=== PATIENT | female | born 1960 | race Caucasian/White ===

== ENCOUNTER → 2018-06-09 | Emergency (ER) | payer SELFPAY ==
[~2018-06-09] MED LIST: PIPERACILLIN/TAZOB 3.375 GM 3.375 GM in DEXTROSE 5%-WATER - 50 ML IVPB ONE; PIPERACILLIN/TAZOBACTAM 3.375 GM VIAL IVPB ONE; SODIUM CHLORIDE 1,000 ML IV ONE; VANCOMYCIN 1 GM PREMIX - 1 GM/200 ML BAG IVPB ONE; VANCOMYCIN 1,000 MG VIAL (RESTRICTED TO ID ONLY) ONE; morphine CARPU-JECT 4 MG/1 ML DISP.SYRIN IVPUSH ONE; morphine SULFATE 4 MG/ML VIAL ONE
--- NOTE | 2018-06-09 19:41 | PDOC ---
History of Present Illness - General History Source: Patient, Family Exam Limitations: No Limitations - History of Present Illness Initial Comments: 06/09/18 20:43 The patient is a 58 year old female presenting with her daughter, who presents to the ED complaining of bilateral lower extremity ulcers for the past 10-15 years that has worsened in pain severity as of late. Her daughter reports that the patient just arrived from [facility] on 04/27/2018 and she was not aware of the severity of the patient's condition. The patient refused to show her legs to her family until recently. She reports that the patient was taking Naproxen for pain and recently ran out of her medication. The patient notes that the patient's pain is exacerbated when she walks or when she tries to remove the bandages. The daughter notes that the patient has been feeling warmth from her lower extremities, to the point of putting ice on the areas to alleviate the warm sensation. She denies any fever or any other type of symptoms. The patient does not currently have a PCP or family resource specialist and would like to be referred. The patient denies chest pain, shortness of breath, headache and dizziness. Denies fever, chills, nausea, vomiting, diarrhea or constipation. Denies dysuria , frequency, urgency and hematuria. PAST MEDICAL HISTORY: Bilateral lower extremity ulcers PAST SURGICAL HISTORY: no significant history FAMILY HISTORY: no pertinent history SOCIAL HISTORY: Pt lives with family and is employed. MEDICATIONS: reviewed ALLERGIES: As per nursing notes General: Well-nourished well-developed individual, no acute distress HEENT: Throat: Normal, tonsils normal, no erythema or exudate Neck: Supple, no meningeal signs, no lymphadenopathy Eyes::Pupils equal reactive and round, extraocular motion intact Chest: Nontender to palpation Cardiac: S1-S2 normal, regular rate and rhythm, no murmurs rubs or gallops Respiratory: Lungs clear to auscultation bilateral Abdomen: Soft, nondistended, normal bowel sounds, nontender to palpation diffusely Extremities: (+) Left lower extremity large ulcer extedning acros the dorsum of the foot to mid calf, becomes circumferential at area of ankle, foul odor, purulent discharge, ulcer is stage 3. (+) Right lower extremity large stage 3 ulcer medial extending from the lateral poriton of foot to mid calf, ulcer is not circumferential. Purulent discharge and fould odor. Skin: No rashes Neuro: Alert and oriented x3, nonfocal exam, grossly intact, normal gait Psych: Normal mood and affect <Ahsan Ladd - Last Filed: 06/09/18 20:43> - General History Source: Patient Exam Limitations: No Limitations - History of Present Illness Initial Comments: 06/10/18 00:40 A portion of this note was documented by scribe services under my direction. I have reviewed the details of the note, within reason, and agree with the documentation with the following case summary and management plan written by me. Patient treated in the ED. Nursing notes are reviewed and incorporated into the medical decision-making. Vital signs reviewed. Assessment and plan: This is a 58-year-old female brought in by her daughter for evaluation of bilateral leg ulcers. Patient recently came from [facility] and has had chronic leg ulcers times several years. However over the last couple of days since arrival in the patient has had increased pain some fevers and increase in purulent discharge from her leg ulcers. On my evaluation patient had extensive stage II to stage III leg ulcers bilateral Patient's white count was normal she did have a low-grade temp with a left shift. She was started on antibiotics vancomycin and Zosyn given first doses in the ED Patient was transferred to [place] as she will require extensive debridement of the ulcers, hyperbaric therapy, infectious disease consult, probable skin grafting eventually. Patient accepted to [place] by Dr. Carmichael and will be sent to the adult ED <María Phan I - Last Filed: 06/10/18 00:42> - General Chief Complaint: Pain, Acute Stated Complaint: LEG ULCERS Time Seen by Provider: 06/09/18 19:37 Past History <Ahsan Ladd - Last Filed: 06/09/18 20:43> - Past Medical History Anemia: Yes COPD: No Other medical history: LEG ULCERS X 15 YEARS - Suicide/Smoking/Psychosocial Hx Smoking History: Never smoked Have you smoked in the past 12 months: No Information on smoking cessation initiated: No Hx Alcohol Use: No Drug/Substance Use Hx: No <María Phan I - Last Filed: 06/10/18 00:42> - Past Medical History Allergies/Adverse Reactions: Allergies Allergy/AdvReac Type Severity Reaction Status Date / Time No Known Allergies Allergy Verified 06/09/18 19:29 Home Medications: Ambulatory Orders Unobtainable 06/09/18 *Physical Exam - Vital Signs Last Vital Signs Temp Pulse Resp BP Pulse Ox 99 F 93 H 18 130/73 100 06/09/18 19:31 06/09/18 19:31 06/09/18 19:31 06/09/18 19:31 06/09/18 19:31 <Ahsan Ladd - Last Filed: 06/09/18 20:43> - Vital Signs Last Vital Signs Temp Pulse Resp BP Pulse Ox 99 F 93 H 18 130/73 100 06/09/18 19:31 06/09/18 19:31 06/09/18 19:31 06/09/18 19:31 06/09/18 19:31 <María Phan I - Last Filed: 06/10/18 00:42> Moderate Sedation - Procedure Monitoring Vital Signs: Procedure Monitoring Vital Signs Temperature 99 F 06/09/18 19:31 Pulse Rate 93 H 06/09/18 19:31 Respiratory Rate 18 06/09/18 19:31 Blood Pressure 130/73 06/09/18 19:31 O2 Sat by Pulse Oximetry (%) 100 06/09/18 19:31 <Ahsan Ladd - Last Filed: 06/09/18 20:43> - Procedure Monitoring Vital Signs: Procedure Monitoring Vital Signs Temperature 99 F 06/09/18 19:31 Pulse Rate 93 H 06/09/18 19:31 Respiratory Rate 18 06/09/18 19:31 Blood Pressure 130/73 06/09/18 19:31 O2 Sat by Pulse Oximetry (%) 100 06/09/18 19:31 <María Phan I - Last Filed: 06/10/18 00:42> ED Treatment Course - LABORATORY CBC & Chemistry Diagram: 06/09/18 20:00 06/09/18 20:00 - ADDITIONAL ORDERS Additional order review: Laboratory Results 06/09/18 20:00 Sodium 139 Potassium 3.6 Chloride 112 H Carbon Dioxide 15 L Anion Gap 12 BUN 33 H Creatinine 2.2 H Creat Clearance w eGFR 22.93 Random Glucose 167 H Calcium 7.6 L Total Bilirubin 0.4 AST 27 ALT 39 Alkaline Phosphatase 126 H Total Protein 6.9 Albumin 2.3 L 06/09/18 20:00 RBC 3.88 MCV 69.2 L MCHC 30.5 L RDW 18.5 H MPV 7.2 L Neutrophils % No Result Required. Lymphocytes % No Result Required. - Medications Given in the ED: ED Medications Discontinued Medications Generic Name Dose Route Start Last Admin Trade Name Frederick PRN Reason Stop Dose Admin Morphine Sulfate 4 mg 06/09/18 19:49 06/09/18 20:13 Morphine Injection - IVPUSH 06/09/18 19:50 4 mg ONCE ONE Administration <Ahsan Ladd - Last Filed: 06/09/18 20:43> - LABORATORY CBC & Chemistry Diagram: 06/09/18 20:00 06/09/18 20:00 <María Phan I - Last Filed: 06/10/18 00:42> *DC/Admit/Observation/Transfer - Attestations Scribe Attestion: 06/09/18 20:43 Documentation prepared by Ahsan Ladd, acting as medical writer for María Phan MD <Ahsan Ladd - Last Filed: 06/09/18 20:43> <María Phan I - Last Filed: 06/10/18 00:42> Diagnosis at time of Disposition: Bilateral leg ulcer Qualifiers: Non-pressure ulcer stage: with fat layer exposed Qualified Code(s): L97.912 - Non-pressure chronic ulcer of unspecified part of right lower leg with fat layer exposed - Discharge Dispostion Disposition: TRANSFER ACUTE CARE/OTHER HOSP Condition at time of disposition: Stable
[2018-06-09 19:47] VITALS: BMI 28.3
[2018-06-09 20:13] LABS: HEMATOCRIT 26.9 % (32.4-45.2); RDW 18.5 % (11.6-15.6); WHITE BLOOD COUNT 7.3 K/mm3 (4.0-10.8)
[2018-06-09 20:17] LABS: HEMOGLOBIN 8.2 GM/dl (10.7-15.3); MCH 21.1 pg (25.7-33.7); MCHC 30.5 g/dl (32.0-36.0); MEAN CELL VOLUME 69.2 fl (80-96); MEAN PLT VOLUME 7.2 fl (7.5-11.1); PLATELET COUNT 691 K/MM3 (134-434); RBC 3.88 M/mm3 (3.60-5.2)
[2018-06-09 20:33] LABS: ALBUMIN 2.3 g/dl (3.4-5.0); ALK PHOS 126 U/L (45-117); ANION GAP 12 MMOL/L (8-16); BILIRUBIN,TOTAL 0.4 mg/dl (0.2-1); BLOOD UREA NITROGEN 33 mg/dl (7-18); CALCIUM 7.6 mg/dl (8.5-10); CHLORIDE 112 mmol/L (98-107); CO2 15 mmol/L (21-32); CREATININE 2.2 mg/dl (0.55-1.3); GLUCOSE,RANDOM 167 mg/dl (74-106); POTASSIUM 3.6 mmol/L (3.5-5.1); SGOT/AST 27 U/L (15-37); SGPT/ALT 39 U/L (13-61); SODIUM 139 mmol/L (136-145); TOT PROT 6.9 g/dl (6.4-8.2)
[2018-06-09 21:09] LABS: ANISOCYTOSIS 1+; OVALOCYTE 1+; PLATELET ESTIMATE INCREASED
[2018-06-09 23:14] VITALS: BP 105/59; PULSE 92; TEMP 98.4
--- NOTE | 2018-06-10 15:45 | EKG ---
Test Reason : Blood Pressure : / mmHG Vent. Rate : 077 BPM Atrial Rate : 077 BPM P-R Int : 144 ms QRS Dur : 084 ms QT Int : 398 ms P-R-T Axes : 060 005 031 degrees QTc Int : 450 ms NORMAL SINUS RHYTHM NORMAL ECG NO PREVIOUS ECGS AVAILABLE Confirmed by CARLOZ KESSLER MD ([id number]) on 06/10/2018 3:45:15 PM Referred By: MD ADAMS Confirmed By:CARLOZ KESSLER MD
== END | disposition short-term general hospital (02) ==
LOC: FER 19:26
PROC: 3E03329 Introduction of Other Anti-infective into Peripheral Vein, Percutaneous Approach (ICD-10-PCS; principal; 2018-06-09)
PROC: 3E0337Z Introduction of Electrolytic and Water Balance Substance into Peripheral Vein, Percutaneous Approach (ICD-10-PCS; 2018-06-09)
PROC: 3E033NZ Introduction of Analgesics, Hypnotics, Sedatives into Peripheral Vein, Percutaneous Approach (ICD-10-PCS; 2018-06-09)
PROC: 3E03329 Introduction of Other Anti-infective into Peripheral Vein, Percutaneous Approach (ICD-10-PCS; 2018-06-09)
DX: L97.912 Non-pressure chronic ulcer of unspecified part of right lower leg with fat layer exposed (principal)
CPT/HCPCS: 36415; 71045-TC-FY; 80053; 85025; 87040; 87070; 87186; 87205; 93005; 99281-25; J7030

== ENCOUNTER 2018-10-08 14:10 | Inpatient (IN) | payer OTHER ==
--- NOTE | 2018-10-08 14:40 | PDOC ---
Rapid Medical Evaluation Chief Complaint: Wound Time Seen by Provider: 10/08/18 14:37 Medical Evaluation: Allergies Allergy/AdvReac Type Severity Reaction Status Date / Time No Known Allergies Allergy Verified 06/09/18 19:29 10/08/18 14:38 Patient complaints of: sent to admission, was at wound care clinic and has cellulitis, admit to [facility] for consult, PCP non affil Patient on brief exam: ble wrapped in gauze, vss Patient ordered for: labs, u/s , iv, Patient to proceed to the ED Discharge Disposition - Diagnosis Bilateral leg ulcer - Discharge Dispostion Disposition: HOME Condition at time of disposition: Good - Referrals - Patient Instructions - Post Discharge Activity
[2018-10-08] MEDS ORDERED: PIPERACILLIN/TAZOB 3.375 GM 3.375 GM in DEXTROSE 5%-WATER - 50 ML IVPB ONE (16:03)
[2018-10-08] MEDS ORDERED: VANCOMYCIN 1,000 MG in DEXTROSE 5%-WATER - 250 ML IVPB ONE (16:03)
[2018-10-08] MEDS ORDERED: morphine CARPU-JECT 4 MG/1 ML DISP.SYRIN IVPUSH ONE (16:04)
--- NOTE | 2018-10-08 16:12 | PDOC ---
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 here from wound care clinic. pt started care here with Dr Izquierdo 3 weeks ago, has been undergoing hyperbarics x 2 weeks. today /co more sever pain in the lower ext. chills. no f/ no n/v no trauma. was seen by dr Cevallos infectious disease. concerns wounds draining purulence, feet warm sent for iv antiobiotics 10/08/18 16:18 meds gabapentin 100 mg QHS lisinopril 2.5 mg atorvastatin 40 mg clobetesol cream folic acid Vit B12 Fe Past History - Past Medical History Allergies/Adverse Reactions: Allergies Allergy/AdvReac Type Severity Reaction Status Date / Time No Known Allergies Allergy Verified 06/09/18 19:29 Home Medications: Ambulatory Orders Aspirin 81 mg PO DAILY 09/17/18 Atorvastatin Ca [Lipitor] 40 mg PO DAILY 09/17/18 Ferrous Sulfate 325 mg PO BID 09/17/18 Humalog 09/17/18 Lisinopril [Zestril] 2.5 mg PO DAILY 09/17/18 Anemia: Yes Cancer: No Cardiac Disorders: No CVA: No COPD: No CHF: No Dementia: No Diabetes: No GI Disorders: Yes Disorders: No HTN: No Hypercholesterolemia: No Liver Disease: No Seizures: No Thyroid Disease: No Other medical history: chronic wounds BLe, hyperbaric tx and wound clinic - Suicide/Smoking/Psychosocial Hx Smoking History: Never smoked Have you smoked in the past 12 months: No Hx Alcohol Use: No Drug/Substance Use Hx: No Review of Systems - Review of Systems Constitutional: No: Diaphoresis, Fever HEENTM: No: Eye Pain, Mouth Swelling Respiratory: No: Cough Cardiac (ROS): No: Chest Pain, Edema : No: Burning, Dysuria, Discharge Musculoskeletal: Yes: Other (leg pain) Integumentary: Yes: Other (chronic leg wounds draining) All Other Systems: Reviewed and Negative *Physical Exam - Vital Signs Last Vital Signs Temp Pulse Resp BP Pulse Ox 97.7 F 74 20 127/70 10/08/18 14:36 10/08/18 14:36 10/08/18 14:36 10/08/18 14:36 - Physical Exam Comments: 10/08/18 16:09 awake alert nad lungs ctab abd soft nt nd ext wwp left anterior alvarenga large skin defect old translant site, yellowish discharge on dressing. foot warm, erythema. right foot with medial heel wound draining yellowish material . nuero alert oriented x 3. Medical Decision Making - Medical Decision Making 10/08/18 16:12 58 yo F htn hld pvd leg wounds here with wound infection. plan labs cultures lactate vanco zosyn, will d/w dr hanson for admission. consult DR Cevallos infectious disease. 10/08/18 16:20 d/w dr hanson. pt admitted. morphine given for pain, vanco / zosyn. *DC/Admit/Observation/Transfer Diagnosis at time of Disposition: Bilateral leg ulcer - Discharge Dispostion Decision to Admit order: Yes - Referrals Referrals: Suresh Huff MD [Primary Care Provider] - - Patient Instructions - Post Discharge Activity
[2018-10-08] MEDS ORDERED: morphine SULFATE 4 MG/ML VIAL ONE (16:34)
[2018-10-08] MEDS ORDERED: PIPERACILLIN/TAZOB 3.375 GM 3.375 GM/50 ML BAG IVPB ONE (16:35)
[2018-10-08] MEDS ORDERED: VANCOMYCIN 1 GRAM (PRE-DOCKED) 1,000 MG/250 ML BAG IVPB ONE (16:35)
[2018-10-08 17:10] LABS: BASO % 0.5 % (0-2.0); EOS % 0.2 % (0-4.5); HEMATOCRIT 34.1 % (32.4-45.2); HEMOGLOBIN 10.7 GM/dL (10.7-15.3); MCH 22.8 pg (25.7-33.7); MCHC 31.3 g/dl (32.0-36.0); MEAN CELL VOLUME 72.9 fl (80-96); MEAN PLT VOLUME 9.4 fl (7.5-11.1); MONO % 5.1 % (3.8-10.2); NEUT % 82.2 % (42.8-82.8); RBC 4.67 M/mm3 (3.60-5.2); RDW 24.5 % (11.6-15.6); WHITE BLOOD COUNT 9.9 K/mm3 (4.0-10.0)
[2018-10-08 17:23] LABS: EPI CELLS 2.8 /HPF (0-5/HPF); HYALINE CASTS 0 /lpf (0-8); PH,URINE 7.5 (5.0-8.0); URINE APPEARANCE CLEAR; URINE BACTERIA 36.7 /hpf (NEGATIVE); URINE BILIRUBIN NEGATIVE (NEGATIVE); URINE COLOR YELLOW; URINE GLUCOSE (UA) NEGATIVE (NEGATIVE); URINE KETONE NEGATIVE (NEGATIVE); URINE LEUK ESTERASE TRACE (NEGATIVE); URINE NITRITE NEGATIVE (NEGATIVE); URINE PROTEIN NEGATIVE (NEGATIVE); URINE RBC 3 /hpf (0-4); URINE UROBILINOGEN 0.2 mg/dL (0.2-1.0); URINE WBC 9 /hpf (0-5)
[2018-10-08 17:34] LABS: ALBUMIN 3.6 g/dl (3.4-5.0); BILIRUBIN,TOTAL 0.2 mg/dL (0.2-1); CALCIUM 9.1 mg/dL (8.5-10.1); CREATININE 1.6 mg/dL (0.55-1.3); POTASSIUM 5.3 mmol/L (3.5-5.1); TOT PROT 7.2 g/dl (6.4-8.2)
[2018-10-08 17:47] LABS: INR 0.99 (0.83-1.09); PROTHROMBIN TIME (PATIENT) 11.7 SEC (9.7-13.0)
[2018-10-08 18:13] LABS: PLATELET COUNT 353 K/MM3 (134-434)
--- NOTE | 2018-10-08 19:22 | HP ---
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 here from wound care clinic. pt started care here with Dr Izquierdo 3 weeks ago, has been undergoing hyperbarics x 2 weeks. today /co more sever pain in the lower ext. chills. no f/ no n/v no trauma. was seen by dr Cevallos infectious disease. concerns wounds draining purulence, feet warm sent for iv antiobiotics - Past Medical History Cardiovascular: Yes: HTN, Hyperlipdemia - Smoking History Smoking history: Never smoked Have you smoked in the past 12 months: No - Alcohol/Substance Use Hx Alcohol Use: No Home Medications - Allergies Allergies/Adverse Reactions: Allergies Allergy/AdvReac Type Severity Reaction Status Date / Time No Known Allergies Allergy Verified 10/09/18 11:33 - Home Medications Home Medications: Ambulatory Orders Atorvastatin Ca [Lipitor] 40 mg PO DAILY 09/17/18 Lisinopril [Zestril] 2.5 mg PO DAILY 09/17/18 Aspirin 81 mg PO DAILY 10/09/18 Ferrous Sulfate [Iron] 325 mg PO DAILY 10/09/18 Physical Examination Vital Signs: Vital Signs Temperature 97.7 F 10/08/18 14:36 Pulse Rate 74 10/08/18 14:36 Respiratory Rate 20 10/08/18 14:36 Blood Pressure 127/70 10/08/18 14:36 O2 Sat by Pulse Oximetry (%) 99 10/08/18 17:00 Constitutional: Yes: No Distress HENT: Yes: Atraumatic Neck: Yes: Supple Cardiovascular: Yes: Regular Rate and Rhythm Respiratory: Yes: CTA Bilaterally Gastrointestinal: Yes: Normal Bowel Sounds Extremities: Yes: Other (B/L JELANI WOUNDS) Edema: No Neurological: Yes: Alert, Oriented Labs: CBC, BMP 10/08/18 16:43 10/08/18 16:43 Problem List - Problems (1) Bilateral leg ulcer Assessment/Plan: ON ABX ID CONSULT WOUND CARE Code(s): L97.919 - NON-PRS CHRONIC ULC UNSP PRT OF R LOW LEG W UNSP SEVERITY; L97.929 - NON-PRS CHRONIC ULC UNSP PRT OF L LOW LEG W UNSP SEVERITY (2) Venous insufficiency Code(s): I87.2 - VENOUS INSUFFICIENCY (CHRONIC) (PERIPHERAL) (3) DVT prophylaxis Code(s): Z29.9 - ENCOUNTER FOR PROPHYLACTIC MEASURES, UNSPECIFIED Assessment/Plan Laboratory Tests 10/08/18 10/08/18 10/08/18 16:43 16:43 16:43 WBC 9.9 RBC 4.67 Hgb 10.7 Hct 34.1 MCV 72.9 L MCH 22.8 L MCHC 31.3 L RDW 24.5 H Plt Count 353 MPV 9.4 Absolute Neuts (auto) 8.2 H Neutrophils % 82.2 Lymphocytes % 12.0 Monocytes % 5.1 Eosinophils % 0.2 Basophils % 0.5 Nucleated RBC % 0 PT with INR 11.70 INR 0.99 Sodium 139 Potassium 5.3 H Chloride 108 H Carbon Dioxide 25 Anion Gap 6 L BUN 43.0 H Creatinine 1.6 H Est GFR (CKD-EPI)AfAm 40.74 Est GFR (CKD-EPI)NonAf 35.15 Random Glucose 130 H Lactic Acid Calcium 9.1 Total Bilirubin 0.2 AST 12 L ALT 39 Alkaline Phosphatase 100 Total Protein 7.2 Albumin 3.6 Urine Color Urine Appearance Urine pH Ur Specific [place] Urine Protein Urine Glucose (UA) Urine Ketones Urine Blood Urine Nitrite Urine Bilirubin Urine Urobilinogen Ur Leukocyte Esterase Urine WBC (Auto) Urine RBC (Auto) Urine Casts (Auto) U Epithel Cells (Auto) Urine Bacteria (Auto) 10/08/18 10/08/18 16:43 17:00 WBC RBC Hgb Hct MCV MCH MCHC RDW Plt Count MPV Absolute Neuts (auto) Neutrophils % Lymphocytes % Monocytes % Eosinophils % Basophils % Nucleated RBC % PT with INR INR Sodium Potassium Chloride Carbon Dioxide Anion Gap BUN Creatinine Est GFR (CKD-EPI)AfAm Est GFR (CKD-EPI)NonAf Random Glucose Lactic Acid 1.0 Calcium Total Bilirubin AST ALT Alkaline Phosphatase Total Protein Albumin Urine Color Yellow Urine Appearance Clear Urine pH 7.5 Ur Specific [place] 1.016 Urine Protein Negative Urine Glucose (UA) Negative Urine Ketones Negative Urine Blood Negative Urine Nitrite Negative Urine Bilirubin Negative Urine Urobilinogen 0.2 Ur Leukocyte Esterase Trace Urine WBC (Auto) 9 Urine RBC (Auto) 3 Urine Casts (Auto) 0 U Epithel Cells (Auto) 2.8 Urine Bacteria (Auto) 36.7 Active Medications Generic Name Dose Route Start Last Admin Trade Name Freq PRN Reason Stop Dose Admin Acetaminophen 650 mg 10/08/18 19:23 10/09/18 02:21 Tylenol - PO 650 mg Q6H PRN Administration FEVER Aspirin 81 mg 10/09/18 10:00 10/09/18 10:14 Asa - PO 81 mg DAILY ENZO Administration Atorvastatin Calcium 40 mg 10/08/18 22:00 10/08/18 22:25 Lipitor - PO 40 mg HS ENZO Administration Ferrous Sulfate 325 mg 10/08/18 22:00 10/09/18 10:15 Feosol - PO 325 mg BID ENZO Administration Heparin Sodium (Porcine) 5,000 unit 10/08/18 22:00 10/09/18 10:15 Heparin - SQ 5,000 unit BID ENZO Administration Meropenem 1 gm/ Dextrose 100 mls @ 200 mls/hr 10/09/18 14:00 IVPB Q12H [facility] Lisinopril 2.5 mg 10/09/18 10:00 10/09/18 10:15 Prinivil PO Not Given DAILY [facility] Oxycodone HCl 10 mg 10/08/18 19:23 10/09/18 02:22 Roxicodone - PO 10 mg Q6H PRN Administration PAIN LEVEL 4 - 6
[2018-10-08 20:31] VITALS: BMI 24.1
[2018-10-08] MEDS: oxyCODONE HCL 5 MG TABLET PO PRN (20:38)
[2018-10-08] MEDS: HEPARIN NA (PORCINE) 5,000 UNITS/ML 1ML VIAL SQ SCH (22:25)
[2018-10-08] MEDS: FERROUS SO4 325 MG TABLET (FP) PO SCH (22:25)
[2018-10-08] MEDS: ATORVASTATIN CA 40 MG TABLET (FP) PO SCH (22:25)
[2018-10-09] MEDS: ACETAMINOPHEN 325 MG TABLET (FP) PO PRN (02:21)
[2018-10-09] MEDS: oxyCODONE HCL 5 MG TABLET PO PRN (02:22)
[2018-10-09 08:45] LABS: ALBUMIN 2.8 g/dl (3.4-5.0); BILIRUBIN,TOTAL 0.3 mg/dL (0.2-1); BLOOD UREA NITROGEN 34.8 mg/dL (7-18); CALCIUM 8.8 mg/dL (8.5-10.1); CREATININE 1.8 mg/dL (0.55-1.3); POTASSIUM 4.5 mmol/L (3.5-5.1); TOT PROT 5.8 g/dl (6.4-8.2)
[2018-10-09 08:51] LABS: BASO % 0.2 % (0-2.0); EOS % 0.5 % (0-4.5); HEMATOCRIT 30.6 % (32.4-45.2); HEMOGLOBIN 9.5 GM/dL (10.7-15.3); LYMPH % 22.4 % (8-40); MCH 22.9 pg (25.7-33.7); MCHC 31.1 g/dl (32.0-36.0); MEAN CELL VOLUME 73.6 fl (80-96); MONO % 8.5 % (3.8-10.2); NEUT % 68.4 % (42.8-82.8); PLATELET COUNT 282 K/MM3 (134-434); RBC 4.15 M/mm3 (3.60-5.2); WHITE BLOOD COUNT 8.4 K/mm3 (4.0-10.0)
[2018-10-09] MEDS ORDERED: PT OWN MED DRAWER 7, Y5N ONE (10:09)
[2018-10-09] MEDS: ASPIRIN 81 MG CHEWABLE TABLETS PO SCH (10:14)
[2018-10-09] MEDS: FERROUS SO4 325 MG TABLET (FP) PO SCH ×2 (10:15→21:02)
[2018-10-09] MEDS: HEPARIN NA (PORCINE) 5,000 UNITS/ML 1ML VIAL SQ SCH ×2 (10:15→21:02)
[2018-10-09] MEDS: LISINOPRIL 5 MG TABLET (FP) PO SCH (10:15)
--- NOTE | 2018-10-09 13:11 | CON.ID ---
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 here from wound care clinic. pt started care here with Dr Izquierdo 3 weeks ago, has been undergoing hyperbarics x 2 weeks. today /co more sever pain in the lower ext. chills. no f/ no n/v no trauma. patient wounds are warm with drainage noted cx were taken of the wounds which are showing multi drug resistant bacteria patient admitted for iv abx and further management. patient has had this wound for 7 years approx - History Source History Provided By: Patient, Family Member Limitations to Obtaining History: Language Barrier - Past Medical History Cardio/Vascular: Yes: HTN, Hyperlipdemia ...: No - Alcohol/Substance Use Hx Alcohol Use: No - Smoking History Smoking history: Never smoked Have you smoked in the past 12 months: No Home Medications - Allergies Allergies/Adverse Reactions: Allergies Allergy/AdvReac Type Severity Reaction Status Date / Time No Known Allergies Allergy Verified 10/09/18 11:33 - Home Medications Home Medications: Ambulatory Orders RX: Atorvastatin Ca [Lipitor] 40 mg PO DAILY 09/17/18 RX: Lisinopril [Zestril] 2.5 mg PO DAILY 09/17/18 RX: Aspirin 81 mg PO DAILY 10/09/18 RX: Ferrous Sulfate [Iron] 325 mg PO DAILY 10/09/18 Review of Systems - Review of Systems Constitutional: reports: No Symptoms Eyes: reports: No Symptoms HENT: reports: No Symptoms Neck: reports: No Symptoms Cardiovascular: reports: No Symptoms Respiratory: reports: No Symptoms Gastrointestinal: reports: No Symptoms Genitourinary: reports: No Symptoms Musculoskeletal: reports: Other Integumentary: reports: Wound, Other Neurological: reports: No Symptoms Endocrine: reports: No Symptoms Hematology/Lymphatic: reports: No Symptoms Psychiatric: reports: No Symptoms Physical Exam Vital Signs: Vital Signs Temperature 98.5 F 10/09/18 08:05 Pulse Rate 71 10/09/18 08:05 Respiratory Rate 20 10/09/18 08:05 Blood Pressure 100/60 10/09/18 08:05 O2 Sat by Pulse Oximetry (%) 99 10/08/18 17:00 Constitutional: Yes: Well Nourished, Calm, Mild Distress Eyes: Yes: Conjunctiva Clear HENT: Yes: WNL, Atraumatic Neck: Yes: Supple, Trachea Midline Cardiovascular: Yes: Regular Rate and Rhythm Respiratory: Yes: Regular, CTA Bilaterally Gastrointestinal: Yes: Normal Bowel Sounds, Soft Musculoskeletal: Yes: WNL Extremities: Yes: Other Integumentary: Yes: Other Wound/Incision: Yes: Dressing Removed, Other (b/l leg wounds extensive on the left leg up to the dermis /partial thickness skin loss) Neurological: Yes: Alert, Oriented Psychiatric: Yes: Alert, Oriented Labs: CBC, BMP 10/09/18 07:27 10/09/18 07:32 Imaging - Results Chest X-ray: Report Reviewed, Image Reviewed X-ray: Report Reviewed, Image Reviewed Assessment/Plan Problem List - Problems (1) Bilateral leg ulcer Code(s): L97.919 - NON-PRS CHRONIC ULC UNSP PRT OF R LOW LEG W UNSP SEVERITY; L97.929 - NON-PRS CHRONIC ULC UNSP PRT OF L LOW LEG W UNSP SEVERITY (2) Venous insufficiency Code(s): I87.2 - VENOUS INSUFFICIENCY (CHRONIC) (PERIPHERAL) 3 wound infction' plan will start patient on abx needs plastics to see the patient wound care rest as per the team
--- NOTE | 2018-10-09 13:59 | PN ---
Progress Note, Physician - Current Medication List Current Medications: Active Medications Acetaminophen (Tylenol -) 650 mg PO Q6H PRN PRN Reason: FEVER Last Admin: 10/09/18 02:21 Dose: 650 mg Aspirin (Asa -) 81 mg PO DAILY [facility] Last Admin: 10/09/18 10:14 Dose: 81 mg Atorvastatin Calcium (Lipitor -) 40 mg PO HS [facility] Last Admin: 10/08/18 22:25 Dose: 40 mg Ferrous Sulfate (Feosol -) 325 mg PO BID [facility] Last Admin: 10/09/18 10:15 Dose: 325 mg Heparin Sodium (Porcine) (Heparin -) 5,000 unit SQ BID [facility] Last Admin: 10/09/18 10:15 Dose: 5,000 unit Meropenem 1 gm/ Dextrose 100 mls @ 200 mls/hr IVPB Q12H [facility] Lisinopril (Prinivil) 2.5 mg PO DAILY [facility] Last Admin: 10/09/18 10:15 Dose: Not Given Oxycodone HCl (Roxicodone -) 10 mg PO Q6H PRN PRN Reason: PAIN LEVEL 4 - 6 Last Admin: 10/09/18 02:22 Dose: 10 mg - Objective Vital Signs: Vital Signs Temperature 98.5 F 10/09/18 08:05 Pulse Rate 71 10/09/18 08:05 Respiratory Rate 20 10/09/18 08:05 Blood Pressure 100/60 10/09/18 08:05 O2 Sat by Pulse Oximetry (%) 99 10/08/18 17:00 Constitutional: Yes: No Distress HENT: Yes: Atraumatic Neck: Yes: Supple Cardiovascular: Yes: Regular Rate and Rhythm Respiratory: Yes: CTA Bilaterally Gastrointestinal: Yes: Normal Bowel Sounds Edema: No Neurological: Yes: Alert, Oriented Labs: CBC, BMP 10/09/18 07:27 10/09/18 07:32 INR, PTT INR 0.99 (0.83-1.09) 10/08/18 16:43 Problem List - Problems (1) Bilateral leg ulcer Assessment/Plan: ON ABX SURGERY CONSULT Code(s): L97.919 - NON-PRS CHRONIC ULC UNSP PRT OF R LOW LEG W UNSP SEVERITY; L97.929 - NON-PRS CHRONIC ULC UNSP PRT OF L LOW LEG W UNSP SEVERITY (2) Venous insufficiency Code(s): I87.2 - VENOUS INSUFFICIENCY (CHRONIC) (PERIPHERAL) (3) DVT prophylaxis Code(s): Z29.9 - ENCOUNTER FOR PROPHYLACTIC MEASURES, UNSPECIFIED
[2018-10-09] MEDS ORDERED: DEXTROSE 5%-WATER 100 ML IVPB ONE (14:07)
[2018-10-09] MEDS ORDERED: MEROPENEM 1 GM VIAL (RESTRICTED TO ID) IVPB ONE (14:07)
[2018-10-09] MEDS: MEROPENEM 1 GM in DEXTROSE 5%-WATER 100 ML IVPB SCH (14:17)
--- NOTE | 2018-10-09 15:38 | CONSULT ---
Consult Consult Specialty:: Vascular Surgery Reason for Consultation:: Bl lower ext wounds. - venous. Had wound cultures done in the clinic and pt needs IV antibiotics as per ID. Sent to ER for admission. - History Source Limitations to Obtaining History: No Limitations - Past Medical History Cardio/Vascular: Yes: HTN, Hyperlipdemia ...: No - Alcohol/Substance Use Hx Alcohol Use: No - Smoking History Smoking history: Never smoked Have you smoked in the past 12 months: No Home Medications - Allergies Allergies/Adverse Reactions: Allergies Allergy/AdvReac Type Severity Reaction Status Date / Time No Known Allergies Allergy Verified 10/09/18 11:33 - Home Medications Home Medications: Ambulatory Orders Atorvastatin Ca [Lipitor] 40 mg PO DAILY 09/17/18 Lisinopril [Zestril] 2.5 mg PO DAILY 09/17/18 Aspirin 81 mg PO DAILY 10/09/18 Ferrous Sulfate [Iron] 325 mg PO DAILY 10/09/18 Review of Systems - Review of Systems Constitutional: reports: No Symptoms Eyes: reports: No Symptoms HENT: reports: No Symptoms Neck: reports: No Symptoms Cardiovascular: reports: No Symptoms Respiratory: reports: No Symptoms Gastrointestinal: reports: No Symptoms Genitourinary: reports: No Symptoms Musculoskeletal: reports: No Symptoms Integumentary: reports: No Symptoms Neurological: reports: No Symptoms Endocrine: reports: No Symptoms Hematology/Lymphatic: reports: No Symptoms Psychiatric: reports: No Symptoms Physical Exam Vital Signs: Vital Signs Temperature 98.5 F 10/09/18 08:05 Pulse Rate 71 10/09/18 08:05 Respiratory Rate 20 10/09/18 08:05 Blood Pressure 100/60 10/09/18 08:05 O2 Sat by Pulse Oximetry (%) 99 10/08/18 17:00 Constitutional: Yes: Well Nourished, No Distress, Calm Eyes: Yes: WNL, Conjunctiva Clear, EOM Intact HENT: Yes: WNL, Atraumatic, Normocephalic Neck: Yes: WNL, Supple, Trachea Midline Cardiovascular: Yes: WNL, Regular Rate and Rhythm Respiratory: Yes: WNL, Regular, CTA Bilaterally Gastrointestinal: Yes: WNL, Normal Bowel Sounds ...Rectal Exam: Yes: WNL Renal/: Yes: WNL Breast(s): Yes: WNL Musculoskeletal: Yes: WNL Extremities: Yes: WNL, Other (open venous stasis ulcers for 7 years) Edema: No Integumentary: Yes: WNL Neurological: Yes: WNL, Alert, Oriented ...Motor Strength: WNL Psychiatric: Yes: WNL Labs: CBC, BMP 10/09/18 07:27 10/09/18 07:32 Problem List - Problems (1) Venous stasis ulcers of both lower extremities Assessment/Plan: Bl lower ext venous stasis ulcers for over 7 years. REcent cultures in [facility] showed infection that can not be treated with oral antibiotics. Pt referred to hospital for IV antibiotics as per ID. Parry to bl lower ext daily. LINDA for compression Renzo Izquierdo DO Code(s): I83.019 - VARICOSE VEINS OF RIGHT LOWER EXTREMITY W ULCER OF UNSP SITE ; I83.029 - VARICOSE VEINS OF LEFT LOWER EXTREMITY W ULCER OF UNSP SITE; L97.919 - NON-PRS CHRONIC ULC UNSP PRT OF R LOW LEG W UNSP SEVERITY; L97.929 - NON-PRS CHRONIC ULC UNSP PRT OF L LOW LEG W UNSP SEVERITY
[2018-10-09] MEDS: ATORVASTATIN CA 40 MG TABLET (FP) PO SCH (21:02)
[2018-10-10] MEDS ORDERED: DEXTROSE 5%-WATER 100 ML IVPB ONE ×2 (01:54→13:31)
[2018-10-10] MEDS ORDERED: MEROPENEM 1 GM VIAL (RESTRICTED TO ID) IVPB ONE ×2 (01:54→13:31)
[2018-10-10] MEDS: MEROPENEM 1 GM in DEXTROSE 5%-WATER 100 ML IVPB SCH ×2 (02:22→13:32)
[2018-10-10] MEDS ORDERED: SILVER SULFADIAZINE 1% TOP CREAM 50 GM JAR TP SCH (10:00)
[2018-10-10] MEDS ORDERED: PT OWN MED DRAWER 7, Y5N ONE (10:01)
[2018-10-10] MEDS: ASPIRIN 81 MG CHEWABLE TABLETS PO SCH (10:03)
[2018-10-10] MEDS: FERROUS SO4 325 MG TABLET (FP) PO SCH ×2 (10:04→22:15)
[2018-10-10] MEDS: LISINOPRIL 5 MG TABLET (FP) PO SCH (10:04)
[2018-10-10] MEDS: HEPARIN NA (PORCINE) 5,000 UNITS/ML 1ML VIAL SQ SCH ×2 (10:05→22:14)
[2018-10-10] MEDS: oxyCODONE HCL 5 MG TABLET PO PRN ×2 (10:06→16:33)
[2018-10-10] MEDS: ACETAMINOPHEN 325 MG TABLET (FP) PO PRN ×2 (10:07→16:34)
--- NOTE | 2018-10-10 11:57 | PN ---
Progress Note, Physician History of Present Illness: patient stable no new issues - Current Medication List Current Medications: Active Medications Acetaminophen (Tylenol -) 650 mg PO Q6H PRN PRN Reason: FEVER Last Admin: 10/10/18 10:07 Dose: 650 mg Aspirin (Asa -) 81 mg PO DAILY [facility] Last Admin: 10/10/18 10:03 Dose: 81 mg Atorvastatin Calcium (Lipitor -) 40 mg PO HS [facility] Last Admin: 10/09/18 21:02 Dose: 40 mg Ferrous Sulfate (Feosol -) 325 mg PO BID [facility] Last Admin: 10/10/18 10:04 Dose: 325 mg Heparin Sodium (Porcine) (Heparin -) 5,000 unit SQ BID [facility] Last Admin: 10/10/18 10:05 Dose: 5,000 unit Meropenem 1 gm/ Dextrose 100 mls @ 200 mls/hr IVPB Q12H [facility] Last Admin: 10/10/18 02:22 Dose: 200 mls/hr Lisinopril (Prinivil) 2.5 mg PO DAILY [facility] Last Admin: 10/10/18 10:04 Dose: 2.5 mg Oxycodone HCl (Roxicodone -) 10 mg PO Q6H PRN PRN Reason: PAIN LEVEL 4 - 6 Last Admin: 10/10/18 10:06 Dose: 10 mg Silver Sulfadiazine (Silvadene -) 1 applic TP DAILY [facility] - Objective Vital Signs: Vital Signs Temperature 98.5 F 10/10/18 06:00 Pulse Rate 62 10/10/18 06:00 Respiratory Rate 20 10/10/18 06:00 Blood Pressure 115/64 10/10/18 06:00 O2 Sat by Pulse Oximetry (%) 98 10/09/18 21:00 Constitutional: Yes: No Distress, Calm Cardiovascular: Yes: Regular Rate and Rhythm Respiratory: Yes: Regular, CTA Bilaterally Musculoskeletal: Yes: WNL Extremities: Yes: Other Neurological: Yes: Alert, Oriented Psychiatric: Yes: Alert, Oriented Labs: CBC, BMP 10/09/18 07:27 10/09/18 07:32 INR, PTT INR 0.99 (0.83-1.09) 10/08/18 16:43 Assessment/Plan Problem List - Problems (1) Bilateral leg ulcer Code(s): L97.919 - NON-PRS CHRONIC ULC UNSP PRT OF R LOW LEG W UNSP SEVERITY; L97.929 - NON-PRS CHRONIC ULC UNSP PRT OF L LOW LEG W UNSP SEVERITY (2) Venous insufficiency Code(s): I87.2 - VENOUS INSUFFICIENCY (CHRONIC) (PERIPHERAL) 3 wound infction' plan continue abx wound care rest as per the team
--- NOTE | 2018-10-10 12:39 | PN ---
Progress Note, Physician - Current Medication List Current Medications: Active Medications Acetaminophen (Tylenol -) 650 mg PO Q6H PRN PRN Reason: FEVER Last Admin: 10/10/18 10:07 Dose: 650 mg Aspirin (Asa -) 81 mg PO DAILY [facility] Last Admin: 10/10/18 10:03 Dose: 81 mg Atorvastatin Calcium (Lipitor -) 40 mg PO HS [facility] Last Admin: 10/09/18 21:02 Dose: 40 mg Ferrous Sulfate (Feosol -) 325 mg PO BID [facility] Last Admin: 10/10/18 10:04 Dose: 325 mg Heparin Sodium (Porcine) (Heparin -) 5,000 unit SQ BID [facility] Last Admin: 10/10/18 10:05 Dose: 5,000 unit Meropenem 1 gm/ Dextrose 100 mls @ 200 mls/hr IVPB Q12H [facility] Last Admin: 10/10/18 02:22 Dose: 200 mls/hr Lisinopril (Prinivil) 2.5 mg PO DAILY [facility] Last Admin: 10/10/18 10:04 Dose: 2.5 mg Oxycodone HCl (Roxicodone -) 10 mg PO Q6H PRN PRN Reason: PAIN LEVEL 4 - 6 Last Admin: 10/10/18 10:06 Dose: 10 mg Silver Sulfadiazine (Silvadene -) 1 applic TP DAILY [facility] - Objective Vital Signs: Vital Signs Temperature 98.2 F 10/10/18 09:20 Pulse Rate 82 10/10/18 09:20 Respiratory Rate 20 10/10/18 09:20 Blood Pressure 132/84 10/10/18 09:20 O2 Sat by Pulse Oximetry (%) 98 10/09/18 21:00 Constitutional: Yes: No Distress HENT: Yes: Atraumatic Neck: Yes: Supple Cardiovascular: Yes: Regular Rate and Rhythm Respiratory: Yes: CTA Bilaterally Gastrointestinal: Yes: Normal Bowel Sounds Extremities: Yes: Other (B/L JELANI CELLULITIS) Neurological: Yes: Alert, Oriented Labs: CBC, BMP 10/09/18 07:27 10/09/18 07:32 INR, PTT INR 0.99 (0.83-1.09) 10/08/18 16:43 Problem List - Problems (1) Bilateral leg ulcer Assessment/Plan: ON ABX SURGERY CONSULT Code(s): L97.919 - NON-PRS CHRONIC ULC UNSP PRT OF R LOW LEG W UNSP SEVERITY; L97.929 - NON-PRS CHRONIC ULC UNSP PRT OF L LOW LEG W UNSP SEVERITY (2) Venous insufficiency Code(s): I87.2 - VENOUS INSUFFICIENCY (CHRONIC) (PERIPHERAL) (3) DVT prophylaxis Code(s): Z29.9 - ENCOUNTER FOR PROPHYLACTIC MEASURES, UNSPECIFIED
--- NOTE | 2018-10-10 17:16 | EKG ---
Test Reason : Blood Pressure : / mmHG Vent. Rate : 067 BPM Atrial Rate : 067 BPM P-R Int : 136 ms QRS Dur : 070 ms QT Int : 376 ms P-R-T Axes : 026 023 062 degrees QTc Int : 397 ms POOR DATA QUALITY, INTERPRETATION MAY BE ADVERSELY AFFECTED NORMAL SINUS RHYTHM NORMAL ECG WHEN COMPARED WITH ECG OF 09-JUN-2018 21:22, QT HAS SHORTENED Confirmed by MD LUL, DILIP ([id number]) on 10/10/2018 5:15:30 PM Referred By: Confirmed By:DILIP MCCARTY MD
[2018-10-10] MEDS: ATORVASTATIN CA 40 MG TABLET (FP) PO SCH (22:15)
[2018-10-11] MEDS ORDERED: MEROPENEM 1 GM VIAL (RESTRICTED TO ID) IVPB ONE ×2 (00:03→14:00)
[2018-10-11] MEDS ORDERED: DEXTROSE 5%-WATER 100 ML IVPB ONE ×2 (00:03→14:00)
[2018-10-11] MEDS: MEROPENEM 1 GM in DEXTROSE 5%-WATER 100 ML IVPB SCH ×2 (01:05→14:02)
--- NOTE | 2018-10-11 08:47 | PN ---
Progress Note, Physician History of Present Illness: patient stable no new issues - Current Medication List Current Medications: Active Medications Acetaminophen (Tylenol -) 650 mg PO Q6H PRN PRN Reason: FEVER Last Admin: 10/10/18 16:34 Dose: 650 mg Aspirin (Asa -) 81 mg PO DAILY [facility] Last Admin: 10/10/18 10:03 Dose: 81 mg Atorvastatin Calcium (Lipitor -) 40 mg PO HS [facility] Last Admin: 10/10/18 22:15 Dose: 40 mg Ferrous Sulfate (Feosol -) 325 mg PO BID [facility] Last Admin: 10/10/18 22:15 Dose: 325 mg Heparin Sodium (Porcine) (Heparin -) 5,000 unit SQ BID [facility] Last Admin: 10/10/18 22:14 Dose: 5,000 unit Meropenem 1 gm/ Dextrose 100 mls @ 200 mls/hr IVPB Q12H [facility] Last Admin: 10/11/18 01:05 Dose: 200 mls/hr Lisinopril (Prinivil) 2.5 mg PO DAILY [facility] Last Admin: 10/10/18 10:04 Dose: 2.5 mg Oxycodone HCl (Roxicodone -) 10 mg PO Q6H PRN PRN Reason: PAIN LEVEL 4 - 6 Last Admin: 10/10/18 16:33 Dose: 10 mg Silver Sulfadiazine (Silvadene -) 1 applic TP DAILY [facility] - Objective Vital Signs: Vital Signs Temperature 98.6 F 10/11/18 06:32 Pulse Rate 72 10/11/18 06:32 Respiratory Rate 20 10/11/18 06:32 Blood Pressure 105/69 10/11/18 06:32 O2 Sat by Pulse Oximetry (%) 99 10/10/18 21:00 Constitutional: Yes: No Distress, Calm Cardiovascular: Yes: Regular Rate and Rhythm Respiratory: Yes: Regular, CTA Bilaterally Gastrointestinal: Yes: Normal Bowel Sounds, Soft Musculoskeletal: Yes: WNL Extremities: Yes: Other Neurological: Yes: Alert, Oriented Psychiatric: Yes: Alert, Oriented Labs: CBC, BMP 10/09/18 07:27 10/09/18 07:32 INR, PTT INR 0.99 (0.83-1.09) 10/08/18 16:43 Assessment/Plan Problem List - Problems (1) Bilateral leg ulcer Code(s): L97.919 - NON-PRS CHRONIC ULC UNSP PRT OF R LOW LEG W UNSP SEVERITY; L97.929 - NON-PRS CHRONIC ULC UNSP PRT OF L LOW LEG W UNSP SEVERITY (2) Venous insufficiency Code(s): I87.2 - VENOUS INSUFFICIENCY (CHRONIC) (PERIPHERAL) 3 wound infction' plan abx needs plastics to see the patient wound care rest as per the team
[2018-10-11] MEDS: oxyCODONE HCL 5 MG TABLET PO PRN ×3 (10:28→23:53)
[2018-10-11] MEDS: FERROUS SO4 325 MG TABLET (FP) PO SCH ×2 (10:28→22:29)
[2018-10-11] MEDS: ACETAMINOPHEN 325 MG TABLET (FP) PO PRN ×2 (10:28→17:31)
[2018-10-11] MEDS: ASPIRIN 81 MG CHEWABLE TABLETS PO SCH (10:28)
[2018-10-11] MEDS: HEPARIN NA (PORCINE) 5,000 UNITS/ML 1ML VIAL SQ SCH ×2 (10:29→22:29)
[2018-10-11] MEDS: LISINOPRIL 5 MG TABLET (FP) PO SCH (10:29)
[2018-10-11] MEDS: SILVER SULFADIAZINE 1% TOP CREAM 400 GM JAR TP SCH (11:15)
--- NOTE | 2018-10-11 17:56 | CONSULT ---
Consult Consult Specialty:: Plastic surgery Referred by:: Dr Johnston Reason for Consultation:: Open wounds Both legsx 7 years - History of Present Illness Chief Complaint: WOunds started 7 years ago as a small blister - History Source History Provided By: Family Member (Daughter Morena) - Past Medical History Cardio/Vascular: Yes: HTN, Hyperlipdemia ...: No - Alcohol/Substance Use Hx Alcohol Use: No - Smoking History Smoking history: Never smoked Have you smoked in the past 12 months: No Home Medications - Allergies Allergies/Adverse Reactions: Allergies Allergy/AdvReac Type Severity Reaction Status Date / Time No Known Allergies Allergy Verified 10/09/18 11:33 - Home Medications Home Medications: Ambulatory Orders Atorvastatin Ca [Lipitor] 40 mg PO DAILY 09/17/18 Lisinopril [Zestril] 2.5 mg PO DAILY 09/17/18 Aspirin 81 mg PO DAILY 10/09/18 Ferrous Sulfate [Iron] 325 mg PO DAILY 10/09/18 Physical Exam Vital Signs: Vital Signs Temperature 98.4 F 10/11/18 15:07 Pulse Rate 82 10/11/18 15:07 Respiratory Rate 18 10/11/18 15:07 Blood Pressure 98/53 L 10/11/18 15:07 O2 Sat by Pulse Oximetry (%) 98 10/11/18 09:00 Labs: CBC, BMP 10/09/18 07:27 10/09/18 07:32 Assessment/Plan Awake alert, not in Acute distress Focused Examination Both Legs large Open wound, covered with Fibrinous tissue, mild odor, Severe Pigmented changes and scars noted Left lower leg ulcers are Circumferential , DP palpable DP Laboratory Tests 10/08/18 10/08/18 10/09/18 16:43 16:43 07:27 WBC 9.9 8.4 Hgb 9.5 L Hct 30.6 L MCV 73.6 L MCH 22.9 L MCHC 31.1 L RDW 25.0 H Plt Count 282 D Absolute Neuts (auto) 5.7 Neutrophils % 68.4 Lymphocytes % 22.4 D Monocytes % 8.5 Eosinophils % 0.5 D Basophils % 0.2 Nucleated RBC % 0 Potassium 5.3 H Chloride 108 H Anion Gap 6 L BUN 43.0 H Creatinine 1.6 H Random Glucose 130 H Calcium Total Bilirubin AST Alkaline Phosphatase 100 Total Protein 7.2 Albumin 3.6 10/09/18 07:32 WBC Hgb Hct MCV MCH MCHC RDW Plt Count Absolute Neuts (auto) Neutrophils % Lymphocytes % Monocytes % Eosinophils % Basophils % Nucleated RBC % Potassium 4.5 Chloride 109 H Anion Gap 5 L BUN 34.8 H Creatinine 1.8 H Random Glucose 124 H Calcium 8.8 Total Bilirubin 0.3 AST 10 L Alkaline Phosphatase 84 Total Protein 5.8 L Albumin 2.8 L Right lower ulcers : covered with heavy Fibrious tissue Smaller than Right size Discussed /Medical Center admission: No skin grafting performed (as per daughter ) Dr Izquierdo N, As per Dr Izquierdo : Vascular / Perforating vessels needs to be addressed before skin grafting Recommend : Both legs Wounds treated with Silvidine cream daily. ( patient declining compression due to pain) Compression using Pump BID at home till Perforators are treated by Dr Izquierdo
--- NOTE | 2018-10-11 18:38 | PN ---
Progress Note, Physician - Current Medication List Current Medications: Active Medications Acetaminophen (Tylenol -) 650 mg PO Q6H PRN PRN Reason: FEVER Last Admin: 10/11/18 17:31 Dose: 650 mg Aspirin (Asa -) 81 mg PO DAILY [facility] Last Admin: 10/11/18 10:28 Dose: 81 mg Atorvastatin Calcium (Lipitor -) 40 mg PO HS [facility] Last Admin: 10/10/18 22:15 Dose: 40 mg Ferrous Sulfate (Feosol -) 325 mg PO BID [facility] Last Admin: 10/11/18 10:28 Dose: 325 mg Heparin Sodium (Porcine) (Heparin -) 5,000 unit SQ BID [facility] Last Admin: 10/11/18 10:29 Dose: 5,000 unit Meropenem 1 gm/ Dextrose 100 mls @ 200 mls/hr IVPB Q12H [facility] Last Admin: 10/11/18 14:02 Dose: 200 mls/hr Lisinopril (Prinivil) 2.5 mg PO DAILY [facility] Last Admin: 10/11/18 10:29 Dose: 2.5 mg Oxycodone HCl (Roxicodone -) 10 mg PO Q6H PRN PRN Reason: PAIN LEVEL 4 - 6 Last Admin: 10/11/18 17:30 Dose: 10 mg Silver Sulfadiazine (Silvadene -) 1 applic TP DAILY [facility] Last Admin: 10/11/18 11:15 Dose: 1 applic - Objective Vital Signs: Vital Signs Temperature 98.4 F 10/11/18 15:07 Pulse Rate 82 10/11/18 15:07 Respiratory Rate 18 10/11/18 15:07 Blood Pressure 98/53 L 10/11/18 15:07 O2 Sat by Pulse Oximetry (%) 98 10/11/18 09:00 Constitutional: Yes: No Distress HENT: Yes: Atraumatic Neck: Yes: Supple Cardiovascular: Yes: Regular Rate and Rhythm Respiratory: Yes: CTA Bilaterally Gastrointestinal: Yes: Normal Bowel Sounds Extremities: Yes: Other (b/l jhonny cellulitis) Neurological: Yes: Alert, Oriented Labs: CBC, BMP 10/09/18 07:27 10/09/18 07:32 INR, PTT INR 0.99 (0.83-1.09) 10/08/18 16:43 Problem List - Problems (1) Bilateral leg ulcer Assessment/Plan: ON ABX ID CONSULT WOUND CARE Code(s): L97.919 - NON-PRS CHRONIC ULC UNSP PRT OF R LOW LEG W UNSP SEVERITY; L97.929 - NON-PRS CHRONIC ULC UNSP PRT OF L LOW LEG W UNSP SEVERITY (2) Venous insufficiency Code(s): I87.2 - VENOUS INSUFFICIENCY (CHRONIC) (PERIPHERAL)
[2018-10-11] MEDS: ATORVASTATIN CA 40 MG TABLET (FP) PO SCH (22:29)
[2018-10-12] MEDS ORDERED: DEXTROSE 5%-WATER 100 ML IVPB ONE ×2 (02:28→15:09)
[2018-10-12] MEDS ORDERED: MEROPENEM 1 GM VIAL (RESTRICTED TO ID) IVPB ONE ×2 (02:28→15:09)
[2018-10-12] MEDS: MEROPENEM 1 GM in DEXTROSE 5%-WATER 100 ML IVPB SCH ×2 (02:30→15:22)
[2018-10-12] MEDS: oxyCODONE HCL 5 MG TABLET PO PRN ×2 (08:55→21:43)
[2018-10-12] MEDS: ACETAMINOPHEN 325 MG TABLET (FP) PO PRN ×2 (08:57→21:48)
[2018-10-12] MEDS: LISINOPRIL 5 MG TABLET (FP) PO SCH (10:42)
[2018-10-12] MEDS: HEPARIN NA (PORCINE) 5,000 UNITS/ML 1ML VIAL SQ SCH ×2 (10:42→21:43)
[2018-10-12] MEDS: ASPIRIN 81 MG CHEWABLE TABLETS PO SCH (10:42)
[2018-10-12] MEDS: FERROUS SO4 325 MG TABLET (FP) PO SCH ×2 (10:42→21:48)
[2018-10-12] MEDS: SILVER SULFADIAZINE 1% TOP CREAM 400 GM JAR TP SCH (10:43)
--- NOTE | 2018-10-12 14:07 | PN ---
Progress Note, Physician History of Present Illness: stable no new issues - Current Medication List Current Medications: Active Medications Acetaminophen (Tylenol -) 650 mg PO Q6H PRN PRN Reason: FEVER Last Admin: 10/12/18 08:57 Dose: 650 mg Aspirin (Asa -) 81 mg PO DAILY [facility] Last Admin: 10/12/18 10:42 Dose: 81 mg Atorvastatin Calcium (Lipitor -) 40 mg PO HS [facility] Last Admin: 10/11/18 22:29 Dose: 40 mg Ferrous Sulfate (Feosol -) 325 mg PO BID [facility] Last Admin: 10/12/18 10:42 Dose: 325 mg Heparin Sodium (Porcine) (Heparin -) 5,000 unit SQ BID [facility] Last Admin: 10/12/18 10:42 Dose: 5,000 unit Meropenem 1 gm/ Dextrose 100 mls @ 200 mls/hr IVPB Q12H [facility] Last Admin: 10/12/18 02:30 Dose: 200 mls/hr Lisinopril (Prinivil) 2.5 mg PO DAILY [facility] Last Admin: 10/12/18 10:42 Dose: 2.5 mg Oxycodone HCl (Roxicodone -) 10 mg PO Q6H PRN PRN Reason: PAIN LEVEL 4 - 6 Last Admin: 10/12/18 08:55 Dose: 10 mg Silver Sulfadiazine (Silvadene -) 1 applic TP DAILY [facility] Last Admin: 10/12/18 10:43 Dose: 1 applic - Objective Vital Signs: Vital Signs Temperature 98.3 F 10/12/18 10:00 Pulse Rate 118 H 10/12/18 10:00 Respiratory Rate 18 10/12/18 10:00 Blood Pressure 104/67 10/12/18 10:00 O2 Sat by Pulse Oximetry (%) 98 10/11/18 09:00 Constitutional: Yes: No Distress, Calm Cardiovascular: Yes: Regular Rate and Rhythm Respiratory: Yes: Regular, CTA Bilaterally Gastrointestinal: Yes: Normal Bowel Sounds, Soft Musculoskeletal: Yes: WNL Extremities: Yes: WNL Wound/Incision: Yes: Dressing Dry and Intact Neurological: Yes: Alert, Oriented Psychiatric: Yes: Alert, Oriented Labs: CBC, BMP 10/09/18 07:27 10/09/18 07:32 INR, PTT INR 0.99 (0.83-1.09) 10/08/18 16:43 Assessment/Plan Problem List - Problems (1) Bilateral leg ulcer Code(s): L97.919 - NON-PRS CHRONIC ULC UNSP PRT OF R LOW LEG W UNSP SEVERITY; L97.929 - NON-PRS CHRONIC ULC UNSP PRT OF L LOW LEG W UNSP SEVERITY (2) Venous insufficiency Code(s): I87.2 - VENOUS INSUFFICIENCY (CHRONIC) (PERIPHERAL) 3 wound infction' plan abx plastics note noted wound care rest as per the team
--- NOTE | 2018-10-12 18:09 | PN ---
Progress Note, Physician - Current Medication List Current Medications: Active Medications Acetaminophen (Tylenol -) 650 mg PO Q6H PRN PRN Reason: FEVER Last Admin: 10/12/18 08:57 Dose: 650 mg Aspirin (Asa -) 81 mg PO DAILY [facility] Last Admin: 10/12/18 10:42 Dose: 81 mg Atorvastatin Calcium (Lipitor -) 40 mg PO HS [facility] Last Admin: 10/11/18 22:29 Dose: 40 mg Ferrous Sulfate (Feosol -) 325 mg PO BID [facility] Last Admin: 10/12/18 10:42 Dose: 325 mg Heparin Sodium (Porcine) (Heparin -) 5,000 unit SQ BID [facility] Last Admin: 10/12/18 10:42 Dose: 5,000 unit Meropenem 1 gm/ Dextrose 100 mls @ 200 mls/hr IVPB Q12H [facility] Last Admin: 10/12/18 15:22 Dose: 200 mls/hr Lisinopril (Prinivil) 2.5 mg PO DAILY [facility] Last Admin: 10/12/18 10:42 Dose: 2.5 mg Oxycodone HCl (Roxicodone -) 10 mg PO Q6H PRN PRN Reason: PAIN LEVEL 4 - 6 Last Admin: 10/12/18 08:55 Dose: 10 mg Silver Sulfadiazine (Silvadene -) 1 applic TP DAILY [facility] Last Admin: 10/12/18 10:43 Dose: 1 applic - Objective Vital Signs: Vital Signs Temperature 98.2 F 10/12/18 17:03 Pulse Rate 86 10/12/18 17:03 Respiratory Rate 18 10/12/18 17:03 Blood Pressure 90/55 L 10/12/18 17:03 O2 Sat by Pulse Oximetry (%) 98 10/12/18 09:00 Constitutional: Yes: No Distress HENT: Yes: Atraumatic Neck: Yes: Supple Cardiovascular: Yes: Regular Rate and Rhythm Respiratory: Yes: CTA Bilaterally Gastrointestinal: Yes: Normal Bowel Sounds Extremities: Yes: Other (b/l jhonny cellulitis) Neurological: Yes: Alert, Oriented Labs: CBC, BMP 10/09/18 07:27 10/09/18 07:32 INR, PTT INR 0.99 (0.83-1.09) 10/08/18 16:43 Problem List - Problems (1) Bilateral leg ulcer Assessment/Plan: ON ABX ID CONSULT WOUND CARE Code(s): L97.919 - NON-PRS CHRONIC ULC UNSP PRT OF R LOW LEG W UNSP SEVERITY; L97.929 - NON-PRS CHRONIC ULC UNSP PRT OF L LOW LEG W UNSP SEVERITY (2) Venous insufficiency Code(s): I87.2 - VENOUS INSUFFICIENCY (CHRONIC) (PERIPHERAL)
[2018-10-12] MEDS: ATORVASTATIN CA 40 MG TABLET (FP) PO SCH (21:48)
[2018-10-13] MEDS: MEROPENEM 1 GM in DEXTROSE 5%-WATER 100 ML IVPB SCH ×2 (02:50→13:48)
[2018-10-13] MEDS: ASPIRIN 81 MG CHEWABLE TABLETS PO SCH (10:34)
[2018-10-13] MEDS: oxyCODONE HCL 5 MG TABLET PO PRN (10:34)
[2018-10-13] MEDS: FERROUS SO4 325 MG TABLET (FP) PO SCH ×2 (10:36→21:34)
[2018-10-13] MEDS: HEPARIN NA (PORCINE) 5,000 UNITS/ML 1ML VIAL SQ SCH ×2 (10:36→21:34)
[2018-10-13] MEDS: LISINOPRIL 5 MG TABLET (FP) PO SCH (10:36)
[2018-10-13] MEDS: SILVER SULFADIAZINE 1% TOP CREAM 400 GM JAR TP SCH (10:37)
--- NOTE | 2018-10-13 12:07 | PN ---
Progress Note, Physician History of Present Illness: patient stable no new issues - Current Medication List Current Medications: Active Medications Acetaminophen (Tylenol -) 650 mg PO Q6H PRN PRN Reason: FEVER Last Admin: 10/12/18 21:48 Dose: 650 mg Aspirin (Asa -) 81 mg PO DAILY [facility] Last Admin: 10/13/18 10:34 Dose: 81 mg Atorvastatin Calcium (Lipitor -) 40 mg PO HS [facility] Last Admin: 10/12/18 21:48 Dose: 40 mg Ferrous Sulfate (Feosol -) 325 mg PO BID [facility] Last Admin: 10/13/18 10:36 Dose: 325 mg Heparin Sodium (Porcine) (Heparin -) 5,000 unit SQ BID [facility] Last Admin: 10/13/18 10:36 Dose: 5,000 unit Meropenem 1 gm/ Dextrose 100 mls @ 200 mls/hr IVPB Q12H [facility] Last Admin: 10/13/18 02:50 Dose: 200 mls/hr Lisinopril (Prinivil) 2.5 mg PO DAILY [facility] Last Admin: 10/13/18 10:36 Dose: 2.5 mg Oxycodone HCl (Roxicodone -) 10 mg PO Q6H PRN PRN Reason: PAIN LEVEL 4 - 6 Last Admin: 10/13/18 10:34 Dose: 10 mg Silver Sulfadiazine (Silvadene -) 1 applic TP DAILY [facility] Last Admin: 10/13/18 10:37 Dose: Not Given - Objective Vital Signs: Vital Signs Temperature 97.9 F 10/13/18 06:51 Pulse Rate 76 10/13/18 06:51 Respiratory Rate 20 10/13/18 06:51 Blood Pressure 94/56 L 10/13/18 06:51 O2 Sat by Pulse Oximetry (%) 98 10/12/18 09:00 Constitutional: Yes: No Distress, Calm Respiratory: Yes: Regular, CTA Bilaterally Gastrointestinal: Yes: Normal Bowel Sounds, Soft Musculoskeletal: Yes: WNL Extremities: Yes: WNL Wound/Incision: Yes: Dressing Dry and Intact Neurological: Yes: Alert, Oriented Labs: CBC, BMP 10/09/18 07:27 10/09/18 07:32 INR, PTT INR 0.99 (0.83-1.09) 10/08/18 16:43 Assessment/Plan Problem List - Problems (1) Bilateral leg ulcer Code(s): L97.919 - NON-PRS CHRONIC ULC UNSP PRT OF R LOW LEG W UNSP SEVERITY; L97.929 - NON-PRS CHRONIC ULC UNSP PRT OF L LOW LEG W UNSP SEVERITY (2) Venous insufficiency Code(s): I87.2 - VENOUS INSUFFICIENCY (CHRONIC) (PERIPHERAL) 3 wound infction' plan abx plastics note noted wound care rest as per the team
[2018-10-13] MEDS ORDERED: MEROPENEM 1 GM VIAL (RESTRICTED TO ID) IVPB ONE (13:46)
[2018-10-13] MEDS ORDERED: DEXTROSE 5%-WATER 100 ML IVPB ONE (13:46)
--- NOTE | 2018-10-13 18:55 | PN ---
Progress Note, Physician - Current Medication List Current Medications: Active Medications Acetaminophen (Tylenol -) 650 mg PO Q6H PRN PRN Reason: FEVER Last Admin: 10/12/18 21:48 Dose: 650 mg Aspirin (Asa -) 81 mg PO DAILY [facility] Last Admin: 10/13/18 10:34 Dose: 81 mg Atorvastatin Calcium (Lipitor -) 40 mg PO HS [facility] Last Admin: 10/12/18 21:48 Dose: 40 mg Ferrous Sulfate (Feosol -) 325 mg PO BID [facility] Last Admin: 10/13/18 10:36 Dose: 325 mg Heparin Sodium (Porcine) (Heparin -) 5,000 unit SQ BID [facility] Last Admin: 10/13/18 10:36 Dose: 5,000 unit Meropenem 1 gm/ Dextrose 100 mls @ 200 mls/hr IVPB Q12H [facility] Last Admin: 10/13/18 13:48 Dose: 200 mls/hr Lisinopril (Prinivil) 2.5 mg PO DAILY [facility] Last Admin: 10/13/18 10:36 Dose: 2.5 mg Oxycodone HCl (Roxicodone -) 10 mg PO Q6H PRN PRN Reason: PAIN LEVEL 4 - 6 Last Admin: 10/13/18 10:34 Dose: 10 mg - Objective Vital Signs: Vital Signs Temperature 98.5 F 10/13/18 17:21 Pulse Rate 78 10/13/18 17:21 Respiratory Rate 20 10/13/18 17:21 Blood Pressure 91/58 L 10/13/18 17:21 O2 Sat by Pulse Oximetry (%) 98 10/13/18 09:00 HENT: Yes: Atraumatic Neck: Yes: Supple Cardiovascular: Yes: Regular Rate and Rhythm Respiratory: Yes: CTA Bilaterally Gastrointestinal: Yes: Normal Bowel Sounds Extremities: Yes: Other (cellulitis lower extremities) Neurological: Yes: Alert, Oriented Labs: CBC, BMP 10/09/18 07:27 10/09/18 07:32 INR, PTT INR 0.99 (0.83-1.09) 10/08/18 16:43 Problem List - Problems (1) Bilateral leg ulcer Assessment/Plan: ON ABX ID CONSULT WOUND CARE Code(s): L97.919 - NON-PRS CHRONIC ULC UNSP PRT OF R LOW LEG W UNSP SEVERITY; L97.929 - NON-PRS CHRONIC ULC UNSP PRT OF L LOW LEG W UNSP SEVERITY (2) Venous insufficiency Code(s): I87.2 - VENOUS INSUFFICIENCY (CHRONIC) (PERIPHERAL)
[2018-10-13] MEDS: ATORVASTATIN CA 40 MG TABLET (FP) PO SCH (21:34)
[2018-10-14] MEDS ORDERED: MEROPENEM 1 GM VIAL (RESTRICTED TO ID) IVPB ONE ×2 (01:23→14:08)
[2018-10-14] MEDS ORDERED: DEXTROSE 5%-WATER 100 ML IVPB ONE ×2 (01:23→14:09)
[2018-10-14] MEDS: MEROPENEM 1 GM in DEXTROSE 5%-WATER 100 ML IVPB SCH ×2 (01:28→14:15)
[2018-10-14] MEDS: ASPIRIN 81 MG CHEWABLE TABLETS PO SCH (09:52)
[2018-10-14] MEDS: LISINOPRIL 5 MG TABLET (FP) PO SCH (09:52)
[2018-10-14] MEDS: FERROUS SO4 325 MG TABLET (FP) PO SCH ×2 (09:52→21:49)
[2018-10-14] MEDS: HEPARIN NA (PORCINE) 5,000 UNITS/ML 1ML VIAL SQ SCH ×2 (09:52→21:50)
--- NOTE | 2018-10-14 15:17 | PN ---
Progress Note, Physician - Current Medication List Current Medications: Active Medications Acetaminophen (Tylenol -) 650 mg PO Q6H PRN PRN Reason: FEVER Last Admin: 10/12/18 21:48 Dose: 650 mg Aspirin (Asa -) 81 mg PO DAILY [facility] Last Admin: 10/14/18 09:52 Dose: 81 mg Atorvastatin Calcium (Lipitor -) 40 mg PO HS [facility] Last Admin: 10/13/18 21:34 Dose: 40 mg Ferrous Sulfate (Feosol -) 325 mg PO BID [facility] Last Admin: 10/14/18 09:52 Dose: 325 mg Heparin Sodium (Porcine) (Heparin -) 5,000 unit SQ BID [facility] Last Admin: 10/14/18 09:52 Dose: 5,000 unit Meropenem 1 gm/ Dextrose 100 mls @ 200 mls/hr IVPB Q12H [facility] Last Admin: 10/14/18 14:15 Dose: 200 mls/hr Lisinopril (Prinivil) 2.5 mg PO DAILY [facility] Last Admin: 10/14/18 09:52 Dose: 2.5 mg Oxycodone HCl (Roxicodone -) 10 mg PO Q6H PRN PRN Reason: PAIN LEVEL 4 - 6 Last Admin: 10/13/18 10:34 Dose: 10 mg - Objective Vital Signs: Vital Signs Temperature 98.4 F 10/14/18 07:26 Pulse Rate 72 10/14/18 07:26 Respiratory Rate 20 10/14/18 07:26 Blood Pressure 98/65 10/14/18 07:26 O2 Sat by Pulse Oximetry (%) 98 10/13/18 21:00 Labs: CBC, BMP 10/09/18 07:27 10/09/18 07:32 INR, PTT INR 0.99 (0.83-1.09) 10/08/18 16:43
--- NOTE | 2018-10-14 17:59 | PN ---
Progress Note, Physician - Current Medication List Current Medications: Active Medications Acetaminophen (Tylenol -) 650 mg PO Q6H PRN PRN Reason: FEVER Last Admin: 10/12/18 21:48 Dose: 650 mg Aspirin (Asa -) 81 mg PO DAILY [facility] Last Admin: 10/14/18 09:52 Dose: 81 mg Atorvastatin Calcium (Lipitor -) 40 mg PO HS [facility] Last Admin: 10/13/18 21:34 Dose: 40 mg Ferrous Sulfate (Feosol -) 325 mg PO BID [facility] Last Admin: 10/14/18 09:52 Dose: 325 mg Heparin Sodium (Porcine) (Heparin -) 5,000 unit SQ BID [facility] Last Admin: 10/14/18 09:52 Dose: 5,000 unit Meropenem 1 gm/ Dextrose 100 mls @ 200 mls/hr IVPB Q12H [facility] Last Admin: 10/14/18 14:15 Dose: 200 mls/hr Lisinopril (Prinivil) 2.5 mg PO DAILY [facility] Last Admin: 10/14/18 09:52 Dose: 2.5 mg Oxycodone HCl (Roxicodone -) 10 mg PO Q6H PRN PRN Reason: PAIN LEVEL 4 - 6 Last Admin: 10/13/18 10:34 Dose: 10 mg - Objective Vital Signs: Vital Signs Temperature 99 F 10/14/18 09:00 Pulse Rate 87 10/14/18 09:00 Respiratory Rate 20 10/14/18 09:00 Blood Pressure 106/69 10/14/18 09:00 O2 Sat by Pulse Oximetry (%) 98 10/14/18 09:00 Constitutional: Yes: No Distress HENT: Yes: Atraumatic Neck: Yes: Supple Cardiovascular: Yes: Regular Rate and Rhythm Respiratory: Yes: CTA Bilaterally Gastrointestinal: Yes: Normal Bowel Sounds Extremities: Yes: Other (b/l jhonny) Edema: No Neurological: Yes: Alert, Oriented Labs: CBC, BMP 10/09/18 07:27 10/09/18 07:32 INR, PTT INR 0.99 (0.83-1.09) 10/08/18 16:43 Problem List - Problems (1) Bilateral leg ulcer Assessment/Plan: ON ABX ID CONSULT WOUND CARE Code(s): L97.919 - NON-PRS CHRONIC ULC UNSP PRT OF R LOW LEG W UNSP SEVERITY; L97.929 - NON-PRS CHRONIC ULC UNSP PRT OF L LOW LEG W UNSP SEVERITY (2) Venous insufficiency Code(s): I87.2 - VENOUS INSUFFICIENCY (CHRONIC) (PERIPHERAL)
[2018-10-14] MEDS: ATORVASTATIN CA 40 MG TABLET (FP) PO SCH (21:49)
[2018-10-15] MEDS ORDERED: DEXTROSE 5%-WATER 100 ML IVPB ONE ×2 (01:21→14:01)
[2018-10-15] MEDS ORDERED: MEROPENEM 1 GM VIAL (RESTRICTED TO ID) IVPB ONE ×2 (01:21→14:01)
[2018-10-15] MEDS: MEROPENEM 1 GM in DEXTROSE 5%-WATER 100 ML IVPB SCH ×2 (01:30→14:03)
[2018-10-15 07:38] LABS: BASO % 0.6 % (0-2.0); EOS % 0.6 % (0-4.5); HEMATOCRIT 32.1 % (32.4-45.2); HEMOGLOBIN 9.9 GM/dL (10.7-15.3); LYMPH % 41.8 % (8-40); MCH 22.5 pg (25.7-33.7); MCHC 30.7 g/dl (32.0-36.0); MEAN CELL VOLUME 73.4 fl (80-96); MEAN PLT VOLUME 9.1 fl (7.5-11.1); MONO % 10.1 % (3.8-10.2); NEUT % 46.9 % (42.8-82.8); PLATELET COUNT 301 K/MM3 (134-434); RBC 4.38 M/mm3 (3.60-5.2); WHITE BLOOD COUNT 4.9 K/mm3 (4.0-10.0)
[2018-10-15 08:07] LABS: ALBUMIN 2.8 g/dl (3.4-5.0); BILIRUBIN,TOTAL 0.3 mg/dL (0.2-1); BLOOD UREA NITROGEN 68.4 mg/dL (7-18); CREATININE 1.7 mg/dL (0.55-1.3); TOT PROT 6.3 g/dl (6.4-8.2)
[2018-10-15 10:38] LABS: ANISOCYTOSIS 2+; MACROCYTOSIS 0; PLATELET ESTIMATE NORMAL
[2018-10-15] MEDS: ASPIRIN 81 MG CHEWABLE TABLETS PO SCH (11:16)
[2018-10-15] MEDS: FERROUS SO4 325 MG TABLET (FP) PO SCH (11:16)
[2018-10-15] MEDS: LISINOPRIL 5 MG TABLET (FP) PO SCH (11:16)
[2018-10-15] MEDS: HEPARIN NA (PORCINE) 5,000 UNITS/ML 1ML VIAL SQ SCH (11:16)
--- NOTE | 2018-10-15 13:03 | PN ---
Progress Note, Physician History of Present Illness: patient doing well no new issues - Current Medication List Current Medications: Active Medications Acetaminophen (Tylenol -) 650 mg PO Q6H PRN PRN Reason: FEVER Last Admin: 10/12/18 21:48 Dose: 650 mg Aspirin (Asa -) 81 mg PO DAILY [facility] Last Admin: 10/15/18 11:16 Dose: 81 mg Atorvastatin Calcium (Lipitor -) 40 mg PO HS [facility] Last Admin: 10/14/18 21:49 Dose: 40 mg Ferrous Sulfate (Feosol -) 325 mg PO BID [facility] Last Admin: 10/15/18 11:16 Dose: 325 mg Heparin Sodium (Porcine) (Heparin -) 5,000 unit SQ BID [facility] Last Admin: 10/15/18 11:16 Dose: 5,000 unit Meropenem 1 gm/ Dextrose 100 mls @ 200 mls/hr IVPB Q12H [facility] Last Admin: 10/15/18 01:30 Dose: 200 mls/hr Lisinopril (Prinivil) 2.5 mg PO DAILY [facility] Last Admin: 10/15/18 11:16 Dose: 2.5 mg - Objective Vital Signs: Vital Signs Temperature 98.2 F 10/15/18 06:00 Pulse Rate 74 10/15/18 06:00 Respiratory Rate 18 10/15/18 06:00 Blood Pressure 107/68 10/15/18 06:00 O2 Sat by Pulse Oximetry (%) 98 10/14/18 21:00 Constitutional: Yes: No Distress, Calm Cardiovascular: Yes: Regular Rate and Rhythm Respiratory: Yes: Regular, CTA Bilaterally Gastrointestinal: Yes: Normal Bowel Sounds, Soft Musculoskeletal: Yes: WNL Extremities: Yes: Other Wound/Incision: Yes: Dressing Dry and Intact Neurological: Yes: Alert, Oriented Psychiatric: Yes: Alert, Oriented Labs: CBC, BMP 10/15/18 06:48 10/15/18 06:48 INR, PTT INR 0.99 (0.83-1.09) 10/08/18 16:43 Assessment/Plan Problem List - Problems (1) Bilateral leg ulcer Code(s): L97.919 - NON-PRS CHRONIC ULC UNSP PRT OF R LOW LEG W UNSP SEVERITY; L97.929 - NON-PRS CHRONIC ULC UNSP PRT OF L LOW LEG W UNSP SEVERITY (2) Venous insufficiency Code(s): I87.2 - VENOUS INSUFFICIENCY (CHRONIC) (PERIPHERAL) 3 wound infction' plan can switch to po levaquin 750 mg daily to be taken for one more week follow in wound care clinic so further plan can be made
--- NOTE | 2018-10-15 17:12 | DS ---
Physical Examination Vital Signs: Vital Signs Temperature 98.1 F 10/15/18 14:03 Pulse Rate 75 10/15/18 14:03 Respiratory Rate 18 10/15/18 14:03 Blood Pressure 135/8 L 10/15/18 14:03 O2 Sat by Pulse Oximetry (%) 98 10/14/18 21:00 Constitutional: Yes: No Distress HENT: Yes: Atraumatic Neck: Yes: Supple Cardiovascular: Yes: Regular Rate and Rhythm Respiratory: Yes: CTA Bilaterally Gastrointestinal: Yes: Normal Bowel Sounds Extremities: Yes: Other (b/l jhonny cellulitis) Labs: CBC, BMP 10/15/18 06:48 10/15/18 06:48 Discharge Summary Reason For Visit: ULCERS OF BOTH LOWER EXTREMITIES Current Active Problems Bilateral leg ulcer (Acute) DVT prophylaxis (Acute) Venous stasis ulcers of both lower extremities (Acute) - Instructions Diet, Activity, Other Instructions: Repeat CBC, CMP, next week.See your Primary Care Provider. Referrals: Judie Cevallos MD [Staff Physician] - Flo Quintana MD [Staff Physician] - Renzo Izquierdo DO [Staff Physician] - - Home Medications Comprehensive Discharge Medication List: Ambulatory Orders Atorvastatin Ca [Lipitor] 40 mg PO DAILY 09/17/18 Lisinopril [Zestril] 2.5 mg PO DAILY 09/17/18 Aspirin 81 mg PO DAILY 10/09/18 Ferrous Sulfate [Iron] 325 mg PO DAILY 10/09/18 Levofloxacin [Levaquin] 750 mg PO DAILY #10 tablet 10/14/18
[2018-10-15 17:38] VITALS: BP 108/72; PULSE 71; TEMP 98.4
== END 2018-10-15 20:07 | disposition home or self-care (01) | DRG 380 ==
LOC: JER 14:10 → JERBED 16:13 → J8W 19:21
PROVIDERS: ADMIT Internal Medicine; ATTEND Internal Medicine
DX: L97.821 Non-pressure chronic ulcer of other part of left lower leg limited to breakdown of skin (principal); L97.811 Non-pressure chronic ulcer of other part of right lower leg limited to breakdown of skin; I10 Essential (primary) hypertension; L03.115 Cellulitis of right lower limb; L03.116 Cellulitis of left lower limb; I87.2 Venous insufficiency (chronic) (peripheral); E78.5 Hyperlipidemia, unspecified; D64.9 Anemia, unspecified; I83.019 Varicose veins of right lower extremity with ulcer of unspecified site
CPT/HCPCS: 36415; 71046-TC-FY; 73590-TC-LT-FY; 80053; 81003; 83605; 85025; 85610; 87040; 93005; 93010; 93970-TC; 99284-25; G0463-25; J1644

== ENCOUNTER 2018-12-29 16:47 | Inpatient (IN) | payer OTHER ==
--- NOTE | 2018-12-29 16:56 | PDOC ---
Rapid Medical Evaluation Time Seen by Provider: 12/29/18 16:49 Medical Evaluation: Allergies Allergy/AdvReac Type Severity Reaction Status Date / Time No Known Allergies Allergy Verified 10/09/18 11:33 12/29/18 16:55 I have performed a brief in-person evaluation of this patient. The patient presents with a chief complaint of: foot pain, ulcer Pertinent physical exam findings:stable and in NAD, non-focal I have ordered the following:labs The patient will proceed to the ED for further evaluation.
[2018-12-29 17:41] LABS: BASO % 0.1 % (0-2.0); HEMOGLOBIN 10.3 GM/dL (10.7-15.3); LYMPH % 14.7 % (8-40); MCH 25.2 pg (25.7-33.7); MCHC 31.1 g/dl (32.0-36.0); MEAN PLT VOLUME 8.5 fl (7.5-11.1); NEUT % 79.2 % (42.8-82.8); PLATELET COUNT 340 K/MM3 (134-434); RBC 4.07 M/mm3 (3.60-5.2); WHITE BLOOD COUNT 10.7 K/mm3 (4.0-10.0)
[2018-12-29] MEDS ORDERED: SILVER SULFADIAZINE 1% TOP CREAM 50 GM JAR TP ONE (17:42)
[2018-12-29] MEDS ORDERED: IBUPROFEN 400 MG TABLET (FP) PO ONE ×2 (17:52→18:52)
[2018-12-29 18:06] LABS: ALBUMIN 3.2 g/dl (3.4-5.0); BILIRUBIN,TOTAL 0.3 mg/dL (0.2-1); BLOOD UREA NITROGEN 39.3 mg/dL (7-18); CALCIUM 9.3 mg/dL (8.5-10.1); CREATININE 1.7 mg/dL (0.55-1.3); POTASSIUM 4.6 mmol/L (3.5-5.1); TOT PROT 6.7 g/dl (6.4-8.2)
--- NOTE | 2018-12-29 18:30 | PDOC ---
History of Present Illness - General Chief Complaint: Wound Stated Complaint: BILATERAL LEG PAIN Time Seen by Provider: 12/29/18 16:49 - History of Present Illness Initial Comments: 12/29/18 18:13 58F with pmh of chronic venous insufficiency of b/l legs s/p debridment by Marry Izquierdo and Lilian, here for intractable pain b/l worse on the left leg. She has had her skin removed over the entire circumference of the left leg, partially over the right, coming in with clean abdominal pad dressings. She is supposed to get a skin graft in the near future, next appointment tomorrow but was in too much pain, had to come to the ED to day as she couldnt be seen today by Timbo/Lilian. Denies fever, chills, chest pain, abdominal pain, nausea, vomiting, diarrhea,. Past History - Past Medical History Allergies/Adverse Reactions: Allergies Allergy/AdvReac Type Severity Reaction Status Date / Time No Known Allergies Allergy Verified 12/29/18 16:56 Home Medications: Ambulatory Orders Atorvastatin Ca [Lipitor] 40 mg PO DAILY 09/17/18 Lisinopril [Zestril] 2.5 mg PO DAILY 09/17/18 Aspirin 81 mg PO DAILY 10/09/18 Ferrous Sulfate [Iron] 325 mg PO DAILY 10/09/18 Sodium Hypochlorite [Dakin's Solution 0.25% (Half-Strength)] 473 applic NR DAILY #1 ml 11/17/18 Anemia: Yes Cancer: No Cardiac Disorders: No CVA: No COPD: No CHF: No Dementia: No Diabetes: Yes GI Disorders: Yes Disorders: No HTN: Yes Hypercholesterolemia: Yes Liver Disease: No Seizures: No Thyroid Disease: No - Suicide/Smoking/Psychosocial Hx Smoking History: Never smoked Have you smoked in the past 12 months: No Hx Alcohol Use: No Drug/Substance Use Hx: No Review of Systems - Review of Systems Able to Perform ROS?: Yes Is the patient limited Welsh proficient: No Constitutional: No: Symptoms Reported HEENTM: No: Symptoms Reported Respiratory: No: Symptoms reported Cardiac (ROS): No: Symptoms Reported ABD/GI: No: Symptoms Reported : No: Symptoms Reported Musculoskeletal: Yes: See HPI Integumentary: Yes: See HPI Neurological: No: Symptoms reported All Other Systems: Reviewed and Negative *Physical Exam - Vital Signs Last Vital Signs Temp Pulse Resp BP Pulse Ox 98.5 F 71 16 135/74 98 12/29/18 16:49 12/29/18 16:49 12/29/18 16:49 12/29/18 16:49 12/29/18 16:49 - Physical Exam General Appearance: Yes: Nourished, Appropriately Dressed. No: Apparent Distress HEENT: positive: EOMI, AURE, Normal ENT Inspection Respiratory/Chest: positive: Lungs Clear, Normal Breath Sounds. negative: Chest Tender, Respiratory Distress Cardiovascular: positive: Regular Rhythm, Regular Rate, S1, S2 Gastrointestinal/Abdominal: positive: Normal Bowel Sounds, Flat, Soft. negative : Tender Extremity: positive: Other (left leg/ankle/foot circunferential area of skinless , exposed flesh, smaller area over right ankle. ) ED Treatment Course - LABORATORY CBC & Chemistry Diagram: 12/29/18 17:15 12/29/18 17:15 - ADDITIONAL ORDERS Additional order review: Laboratory Results 12/29/18 17:15 Sodium 141 Potassium 4.6 Chloride 112 H Carbon Dioxide 22 Anion Gap 8 BUN 39.3 H Creatinine 1.7 H Est GFR (CKD-EPI)AfAm 37.86 Est GFR (CKD-EPI)NonAf 32.67 Random Glucose 204 H Calcium 9.3 Total Bilirubin 0.3 AST 12 L ALT 41 Alkaline Phosphatase 63 Total Protein 6.7 Albumin 3.2 L 12/29/18 17:15 RBC 4.07 MCV 81.0 D MCHC 31.1 L RDW 20.0 H MPV 8.5 Neutrophils % 79.2 D Lymphocytes % 14.7 D Monocytes % 6.0 Eosinophils % 0.0 D Basophils % 0.1 - RADIOLOGY Radiology Studies Ordered: Category Date Time Status CXRPORT [CHEST X-RAY PORTABLE*] [RAD] Stat Radiology 12/29/18 17:47 Taken Medical Decision Making - Medical Decision Making 12/29/18 19:07 58f with pain over exposed flesh from leg ulcers. Spoke to Dr. Quintana who recommended silvadene cream and motrin, pre-op labs and will do skin graft tomorrow. Patient refused silvadene cream as this cause a painful reaction to her in the past. Motrin didn't work for her pain at all. Attempt to admit patient, asked by Dr. Ceja to attempt to control the patient pain first in case this patient can go home and come back tomorrow for her surgery. Called back Dr. Quintana on his cell phone once more, no response. Ordered Percocet for patient. Patient signed out to Dr. Rizzo with instructions to attempt to - Control the patient's pain - Contact Dr. Quintana to update him about the patient. *DC/Admit/Observation/Transfer Diagnosis at time of Disposition: Bilateral leg ulcer - Referrals Referrals: Suresh Huff MD [Primary Care Provider] - - Patient Instructions - Post Discharge Activity
--- NOTE | 2018-12-29 19:18 | PDOC ---
*Physical Exam - Vital Signs Last Vital Signs Temp Pulse Resp BP Pulse Ox 98.5 F 71 16 135/74 98 12/29/18 16:49 12/29/18 16:49 12/29/18 16:49 12/29/18 16:49 12/29/18 16:49 - Physical Exam General Appearance: Yes: Nourished, Appropriately Dressed, Thin. No: Apparent Distress HEENT: positive: EOMI, Normal Voice, Pharynx Normal. negative: Scleral Icterus (R), Scleral Icterus (L) Neck: positive: Trachea midline, Supple. negative: Normal Thyroid Respiratory/Chest: positive: Lungs Clear, Normal Breath Sounds. negative: Respiratory Distress Cardiovascular: positive: Regular Rhythm, Regular Rate Gastrointestinal/Abdominal: positive: Normal Bowel Sounds, Flat, Soft Musculoskeletal: positive: Normal Inspection Extremity: positive: Normal Capillary Refill, Normal Inspection, Normal Range of Motion, Other (bialteral leg ulcers L>R, fascia exposed to both legs stage II -III ulcerations, no discharge or strikethrough to dressing). negative: Tender Integumentary: positive: Normal Color, Dry, Warm Neurologic: positive: Fully Oriented, Alert, Normal Mood/Affect, Normal Response ED Treatment Course - LABORATORY CBC & Chemistry Diagram: 12/29/18 17:15 12/29/18 17:15 - ADDITIONAL ORDERS Additional order review: Laboratory Results 12/29/18 17:15 Sodium 141 Potassium 4.6 Chloride 112 H Carbon Dioxide 22 Anion Gap 8 BUN 39.3 H Creatinine 1.7 H Est GFR (CKD-EPI)AfAm 37.86 Est GFR (CKD-EPI)NonAf 32.67 Random Glucose 204 H Calcium 9.3 Total Bilirubin 0.3 AST 12 L ALT 41 Alkaline Phosphatase 63 Total Protein 6.7 Albumin 3.2 L 12/29/18 17:15 RBC 4.07 MCV 81.0 D MCHC 31.1 L RDW 20.0 H MPV 8.5 Neutrophils % 79.2 D Lymphocytes % 14.7 D Monocytes % 6.0 Eosinophils % 0.0 D Basophils % 0.1 - Medications Given in the ED: ED Medications Discontinued Medications Generic Name Dose Route Start Last Admin Trade Name Freq PRN Reason Stop Dose Admin Ibuprofen 800 mg 12/29/18 17:52 12/29/18 18:56 Motrin - PO 12/29/18 17:53 800 mg ONCE ONE Administration Silver Sulfadiazine 1 applic 12/29/18 17:42 12/29/18 19:10 Silvadene - TP 12/29/18 17:43 Not Given ONCE ONE Medical Decision Making - Medical Decision Making 12/29/18 19:13 Signed out to me by Dr. Blancas. 58F with PMH HTN, HLD, bilateral chronic leg wounds 2/2 venous ulcers presenting s/p skin graft/transplant with pain in both legs, inability to ambulate. Consulted Dr. Quintana with plastic surgery (#[phone]), scheduled to do skin graft tomorrow. Recommended silvadene but patient rejected, has history of pain with silvadene. No Abx needed, does not look infected. Tried to admit to Dr. Ceja but would like to send home with pain management and surgery f/u tomorrow AM. Tried giving Motrin, not helping patient's pain. ECG NSR, HR 62. Plan: [] pain control plan [] admit for intractable pain if unable to control 12/29/18 20:30 Spoke to patient and daughter, patient still in pain after given PO Percocet. Will start 2mg IV morphine for pain control. Patient is still in pain and is unable to walk; has no one else at home to assist her before her procedure and will not have anyone to bring her to surgery tomorrow morning. Needs admission for intractable pain and wound care. 12/29/18 21:23 Discussed admission to Med-Surg with Dr. Baker with the admitting team. *DC/Admit/Observation/Transfer Diagnosis at time of Disposition: Bilateral leg ulcer Qualifiers: Non-pressure ulcer stage: limited to breakdown of skin Qualified Code(s): L97.911 - Non-pressure chronic ulcer of unspecified part of right lower leg limited to breakdown of skin Intractable neuropathic pain of foot Qualifiers: Laterality: unspecified laterality Qualified Code(s): M79.2 - Neuralgia and neuritis, unspecified - Referrals - Patient Instructions - Post Discharge Activity
[2018-12-29 19:55] LABS: PROTHROMBIN TIME (PATIENT) 11.8 SEC (9.7-13.0)
[2018-12-29 19:57] LABS: ACTIVATED PTT 32.2 SECONDS (25.2-36.5)
[2018-12-29] MEDS ORDERED: morphine CARPU-JECT 2 MG/1 ML DISP.SYRIN IVPUSH ONE (20:17)
[2018-12-29] MEDS ORDERED: MORPHINE SULFATE 2 MG/ML VIAL ONE (20:38)
[2018-12-29 20:41] LABS: EPI CELLS 3.2 /HPF (0-5/HPF); HYALINE CASTS 1 /lpf (0-8); URINE APPEARANCE CLEAR; URINE BACTERIA 1.4 /hpf (NEGATIVE); URINE BILIRUBIN NEGATIVE (NEGATIVE); URINE COLOR YELLOW; URINE GLUCOSE (UA) NEGATIVE (NEGATIVE); URINE KETONE NEGATIVE (NEGATIVE); URINE LEUK ESTERASE 1+ (NEGATIVE); URINE NITRITE NEGATIVE (NEGATIVE); URINE PROTEIN NEGATIVE (NEGATIVE); URINE RBC 1 /hpf (0-4); URINE UROBILINOGEN 0.2 mg/dL (0.2-1.0); URINE WBC 2 /hpf (0-5)
[2018-12-29] MEDS ORDERED: ONDANSETRON 4 MG/2 ML VIAL IVPUSH ONE (20:44)
[2018-12-29] MEDS ORDERED: ONDANSETRON 4 MG/2 ML VIAL ONE (20:50)
--- NOTE | 2018-12-29 21:29 | PDOC ---
Attending Attestation - Resident Resident Name: Neto Blancas - ED Attending Attestation I have performed the following: I have examined & evaluated the patient, The case was reviewed & discussed with the resident, I agree w/resident's findings & plan - HPI HPI: 12/29/18 21:27 see resident HPI - Physicial Exam PE: 12/29/18 21:27 agree with resident exam - Medical Decision Making 12/29/18 21:28 58 yo female with chronic leg wounds here for intractable pain case d/c with pt's surgeon pt to be admitted for pain management with skin grafting planned for am
[2018-12-29] MEDS ORDERED: ONDANSETRON 4 MG/2 ML VIAL IVPUSH PRN (21:49)
--- NOTE | 2018-12-29 21:55 | HP ---
CHIEF COMPLAINT: intractable pain from leg wounds PCP: Dr. Johnston HISTORY OF PRESENT ILLNESS: Laura Ordoñez is a 58 year old female with a past medical history of HTN, HLD, bilateral chronic leg wounds secondary to venous ulcers who presented with intractable pain stemming from the leg wounds. She states that the leg wounds have been present for several years that started out as small bumps which have since progressed to large stage 3 ulcers left>right. Denied local trauma to the area. She has received bilateral skin grafts previously and multiple debridements. She had received a debridment of the wounds on 12/[address] Izquierdo. Has ongoing hyperbaric oxygen treatments however was not able to make appointment on the day of admission due to pain. Stated that she has been having increased amounts of pain in the legs over the last 4 days that has not resolved with oral pain medications. She does not ambulate well at baseline but recently has been having more trouble walking around and required more assistance from her daughter. The patient is scheduled for skin graft tomorrow with Dr. Quintana. In the ED, the patient failed trials of Motrin, Percocet for pain control. She received morphine 2mg with good effect. Daughter stated she is unable to go back home and take the patient back in the morning for the scheduled skin graft appointment. At the time of interview, the patient endorsed pain of the bilateral lower extremities equally. Currently the patient denies extensive weeping or drainage from the wounds, malodorous smell. Also denies chest pain, shortness of breath, abdominal pain, nausea, vomiting, fever, chills, numbness, tingling, weakness, headaches, visual changes, auditory changes. ER course was notable for: (1) pain medications as above Recent Travel: none PAST MEDICAL HISTORY: as above PAST SURGICAL HISTORY: skin grafts Social History: Smoking: denies Alcohol: denies Drugs: denies Family History: denies significant family history Allergies No Known Allergies Allergy (Verified 12/29/18 16:56) HOME MEDICATIONS: Home Medications Medication Instructions Recorded Atorvastatin Ca [Lipitor] 40 mg PO DAILY 09/17/18 Lisinopril [Zestril] 2.5 mg PO DAILY 09/17/18 Aspirin 81 mg PO DAILY 10/09/18 Ferrous Sulfate [Iron] 325 mg PO DAILY 10/09/18 Sodium Hypochlorite [Dakin's 473 applic NR DAILY #1 ml 11/17/18 Solution 0.25% (Half-Strength)] REVIEW OF SYSTEMS CONSTITUTIONAL: Absent: fever, chills, diaphoresis, generalized weakness, malaise, loss of appetite, weight change HEENT: Absent: rhinorrhea, nasal congestion, throat pain, throat swelling, difficulty swallowing, visual changes CARDIOVASCULAR: Absent: chest pain, syncope, palpitations, irregular heart rate, lightheadedness , peripheral edema RESPIRATORY: Absent: cough, shortness of breath, dyspnea with exertion, orthopnea, wheezing, GASTROINTESTINAL: Absent: abdominal pain, abdominal distension, nausea, vomiting, diarrhea, constipation, GENITOURINARY: Absent: dysuria, frequency, urgency, hesitancy, hematuria, flank pain, MUSCULOSKELETAL: painful lower extremities Absent: myalgia, arthralgia, joint swelling, back pain, neck pain SKIN: extensive lower extremity wounds L>R Absent: itching, pallor HEMATOLOGIC/IMMUNOLOGIC: Absent: easy bleeding, easy bruising, lymphadenopathy, frequent infections ENDOCRINE: Absent: unexplained weight gain, unexplained weight loss, heat intolerance, cold intolerance NEUROLOGIC: Absent: headache, focal weakness or paresthesias, dizziness, unsteady gait, seizure, mental status changes PSYCHIATRIC: Absent: anxiety, depression, suicidal or homicidal ideation, hallucinations. PHYSICAL EXAMINATION Vital Signs - 24 hr 12/29/18 16:49 Temperature 98.5 F Pulse Rate 71 Respiratory 16 Rate Blood Pressure 135/74 O2 Sat by Pulse 98 Oximetry (%) GENERAL: Awake, alert, and fully oriented, in mild acute distress. HEAD: Normal with no signs of trauma. EYES: Pupils equal, round and reactive to light, extraocular movements intact, sclera anicteric. EARS, NOSE, THROAT: Oropharynx clear without exudates. Moist mucous membranes. NECK: Normal range of motion, supple without lymphadenopathy, JVD. LUNGS: Breath sounds equal, clear to auscultation bilaterally. No wheezes, and no crackles. No accessory muscle use. HEART: Regular rate and rhythm, normal S1 and S2 without murmur, rub. ABDOMEN: Soft, nontender, not distended, normoactive bowel sounds, no guarding, no rebound, no masses. MUSCULOSKELETAL: Normal range of motion at all joints. No bony deformities or tenderness. No CVA tenderness. UPPER EXTREMITIES: 2+ pulses, warm, well-perfused. No cyanosis. No clubbing. LOWER EXTREMITIES: 1+ pulses, cool, well-perfused. Extensive stage 3 ulcer located circumfurentially on the L lower extremity extending from the malleoli region up to the middle third of the calf. Extensive stage 3 ulcer located on the medial side of the R lower extremity extending from the malleoli up to the middle third of the calf mainly located medially. Both ulcers well demarcated, wet. Chronic venous stasis dermatitis changes located above the wounds. Purulence noted on R ulcer. NEUROLOGICAL: Cranial nerves II-XII intact. Muscle strength 5/5 bilaterally upper and lower extremities. PSYCHIATRIC: Cooperative. Good eye contact. Appropriate mood and affect. SKIN: Lesions as described above. Laboratory Results - last 24 hr 12/29/18 12/29/18 12/29/18 17:15 17:15 19:16 WBC 10.7 H RBC 4.07 Hgb 10.3 L Hct 33.0 MCV 81.0 D MCH 25.2 L D MCHC 31.1 L RDW 20.0 H Plt Count 340 MPV 8.5 Absolute Neuts (auto) 8.4 H Neutrophils % 79.2 D Lymphocytes % 14.7 D Monocytes % 6.0 Eosinophils % 0.0 D Basophils % 0.1 Nucleated RBC % 0 PT with INR 11.80 INR 1.00 PTT (Actin FS) 32.2 Sodium 141 Potassium 4.6 Chloride 112 H Carbon Dioxide 22 Anion Gap 8 BUN 39.3 H Creatinine 1.7 H Est GFR (CKD-EPI)AfAm 37.86 Est GFR (CKD-EPI)NonAf 32.67 Random Glucose 204 H Calcium 9.3 Total Bilirubin 0.3 AST 12 L ALT 41 Alkaline Phosphatase 63 Total Protein 6.7 Albumin 3.2 L Urine Color Urine Appearance Urine pH Ur Specific [place] Urine Protein Urine Glucose (UA) Urine Ketones Urine Blood Urine Nitrite Urine Bilirubin Urine Urobilinogen Ur Leukocyte Esterase Urine WBC (Auto) Urine RBC (Auto) Urine Casts (Auto) U Epithel Cells (Auto) Urine Bacteria (Auto) Blood Type Antibody Screen 12/29/18 12/29/18 19:16 20:24 WBC RBC Hgb Hct MCV MCH MCHC RDW Plt Count MPV Absolute Neuts (auto) Neutrophils % Lymphocytes % Monocytes % Eosinophils % Basophils % Nucleated RBC % PT with INR INR PTT (Actin FS) Sodium Potassium Chloride Carbon Dioxide Anion Gap BUN Creatinine Est GFR (CKD-EPI)AfAm Est GFR (CKD-EPI)NonAf Random Glucose Calcium Total Bilirubin AST ALT Alkaline Phosphatase Total Protein Albumin Urine Color Yellow Urine Appearance Clear Urine pH 6.0 Ur Specific [place] 1.017 Urine Protein Negative Urine Glucose (UA) Negative Urine Ketones Negative Urine Blood Negative Urine Nitrite Negative Urine Bilirubin Negative Urine Urobilinogen 0.2 Ur Leukocyte Esterase 1+ H Urine WBC (Auto) 2 Urine RBC (Auto) 1 Urine Casts (Auto) 1 U Epithel Cells (Auto) 3.2 Urine Bacteria (Auto) 1.4 Blood Type O POSITIVE Antibody Screen Negative EKG--> NSR, no ST segment changes QTc 395 ASSESSMENT/PLAN: Laura Ordoñez is a 58 year old female with a past medical history of HTN, HLD, bilateral chronic leg wounds secondary to venous ulcers admitted for intractable pain secondary to chronic venous stasis ulcers. Chrnoic venous stasis dermatitis ulcers HTN HLD Anemia CKD Chronic venous stasis dermatitis ulcers - scheduled for skin graft tomorrow with Dr. Quintana - wound may be infected as purulence noted, may defer surgery until wound healed , f/u on recommendations of ID, surgery, and vascular - pre-op labs - control pain with morphine 2mg q6h prn and tylenol - Zofran for nausea - Zosyn 2.25 q6h renally dosed - vancomycin 1g - IVF, NS at 75cc/hr - blood and wound cultures - ID consulted, Dr. Cevallos - ESR/CRP - patient unable to ambulate well, physical therapy ordered - can restart home gabapentin 100mg qhs after procedure - patient currently refusing silver sulfadiazine - frequent dressing changes - ISS for strict glucose control prior to surgery HTN - patient not currently on any home medications, previously took lisinopril - low threshold to restart medications if patient becoming hypertensive HLD - continue home lipitor after procedure Anemia - can continue iron supplementation after procedure CKD - CRE 1.7, at baseline - NS at 75cc/hr to prevent DENICE FEN - NS at 75cc/hr maintenance fluids - continue to monitor electrolytes and replete as necessary - NPO pending surgical procedure tomorrow Prophylaxis - hold chemical prophylaxis as patient to surgery tomorrow - unable to tolerate SCDs - early ambulation Code - full code PARKER RIVERA DO - PGY-1 Visit type - Emergency Visit Emergency Visit: Yes ED Registration Date: 12/29/18 Care time: The patient presented to the Emergency Department on the above date and was hospitalized for further evaluation of their emergent condition. - New Patient This patient is new to me today: Yes Date on this admission: 12/30/18 - Critical Care Critical Care patient: No
[2018-12-29] MEDS ORDERED: PIPERACILLIN/TAZOB 2.25 GM 2.25 GM in DEXTROSE 5%-WATER - 50 ML IVPB SCH (22:15)
[2018-12-29] MEDS ORDERED: VANCOMYCIN 1 GM in D5W (PRE-DOCKED) 1,000 MG/250 ML IVPB ONE (22:30)
[2018-12-29] MEDS ORDERED: SODIUM CHLORIDE 1,000 ML IV SCH (22:45)
[2018-12-29] MEDS ORDERED: PIPERACILLIN/TAZOB 2.25 GM 2.25 GM/50 ML BAG IVPB ONE (22:53)
[2018-12-29] MEDS ORDERED: VANCOMYCIN 1 GRAM (PRE-DOCKED) 1,000 MG/250 ML BAG IVPB ONE (22:53)
[2018-12-29] MEDS: PIPERACILLIN/TAZOB 2.25 GM 2.25 GM in DEXTROSE 5%-WATER - 50 ML IVPB SCH (23:07)
--- NOTE | 2018-12-29 23:48 | PN ---
Teaching Attending Note Name of Resident: Gene Kenny ATTENDING PHYSICIAN STATEMENT I saw and evaluated the patient. Chart, data, imaging reviewed. I reviewed the resident's note and discussed the case with the resident. I agree with the resident's findings and plan as documented. SUBJECTIVE: 58 yo woman htn, dlp, chronic b/k lower ulcer x 5years, venous insufficiency, follows with Timbo Holguin, s/p prior skin transplant -07/13 at [facility]?, multiple debridements, undergoes hyperbaric oxygen treatment, presented with intractable lower extremity pain x several days and inability to walk. Was scheduled for tomorrow for skin graft. Patient taking tylenol at home for pain with minimal relief. She performs her own wound care and dressing changes at home. OBJECTIVE: Last Vital Signs Temp Pulse Resp BP Pulse Ox 98.5 F 71 16 135/74 98 12/29/18 16:49 12/29/18 16:49 12/29/18 16:49 12/29/18 16:49 12/29/18 16:49 general -nontoxic, nad heent- at, nc neck supple cv -s1+s2+rrr chest clear lower ext -left leg ulcer extensive ulcer from ankle to midshin, appears clean, no foul smell or discharge appreciated, right leg medial leg ulcer with yellowish discharge seen on abdominal pain dressing, nonfoul smelling. small necrotic appearing segment of tissue Abnormal Lab Results 12/29/18 12/29/18 12/29/18 17:15 17:15 20:24 WBC 10.7 H Hgb 10.3 L MCH 25.2 L D MCHC 31.1 L RDW 20.0 H Absolute Neuts (auto) 8.4 H Chloride 112 H BUN 39.3 H Creatinine 1.7 H Random Glucose 204 H AST 12 L Albumin 3.2 L Ur Leukocyte Esterase 1+ H imaging studies reviewed ASSESSMENT AND PLAN: #B/l lower ext ulcers with intractable pain. Right lower ext ulcer with whitish yellow discharge- purulent? No signs of sepsis but possible local wound infection. Slight leukocytosis. Vascular recommended silvadene but patient refused due to "burning". -admit to med/surg -wound culture -blood cultures x2 -esr/crp -1 dose vancomycin/ zosyn -ID, vascular consults -clean gauze, roller bandage -NPO for skin graft -pt, ptt -type and screen -ekg -pain control with morphine IV #CKD- stable -avoi nephrotoxnins #DM- uncontrolled -tight glucose control in anticipation for surgery -diabetic diet -insulin sliding scale #DVT ppx- heparin sc
[2018-12-30] MEDS ORDERED: PIPERACILLIN/TAZOBACTAM 2.25 GM VIAL IVPB ONE ×2 (03:00→21:50)
[2018-12-30] MEDS ORDERED: DEXTROSE 5%-WATER - 50 ML IVPB ONE ×2 (03:00→21:50)
[2018-12-30] MEDS: MORPHINE SULFATE 2 MG/ML VIAL IVPUSH PRN ×2 (03:03→09:13)
[2018-12-30] MEDS: PIPERACILLIN/TAZOB 2.25 GM 2.25 GM in DEXTROSE 5%-WATER - 50 ML IVPB SCH ×7 (03:15→21:57)
[2018-12-30] MEDS ORDERED: morphine CARPU-JECT 2 MG/1 ML DISP.SYRIN IVPUSH ONE (05:27)
[2018-12-30] MEDS ORDERED: MORPHINE SULFATE 2 MG/ML VIAL IVPUSH ONE (05:27)
[2018-12-30 08:35] LABS: BASO % 0.2 % (0-2.0); EOS % 0.3 % (0-4.5); HEMATOCRIT 32.9 % (32.4-45.2); HEMOGLOBIN 10.5 GM/dL (10.7-15.3); INR 0.97 (0.83-1.09); LYMPH % 23.6 % (8-40); MCH 25.8 pg (25.7-33.7); MCHC 31.9 g/dl (32.0-36.0); MEAN CELL VOLUME 80.8 fl (80-96); MEAN PLT VOLUME 8.5 fl (7.5-11.1); MONO % 6.8 % (3.8-10.2); NEUT % 69.1 % (42.8-82.8); PLATELET COUNT 328 K/MM3 (134-434); PROTHROMBIN TIME (PATIENT) 11.4 SEC (9.7-13.0); RBC 4.07 M/mm3 (3.60-5.2); RDW 19.8 % (11.6-15.6); WHITE BLOOD COUNT 8.7 K/mm3 (4.0-10.0)
[2018-12-30 08:37] LABS: ACTIVATED PTT 31.9 SECONDS (25.2-36.5)
[2018-12-30 08:45] LABS: BILIRUBIN,TOTAL 0.6 mg/dL (0.2-1); BLOOD UREA NITROGEN 36.9 mg/dL (7-18); CREATININE 1.7 mg/dL (0.55-1.3); POTASSIUM 5.2 mmol/L (3.5-5.1); TOT PROT 6.4 g/dl (6.4-8.2)
[2018-12-30] MEDS ORDERED: PROPOFOL 20 ML ONE ×2 (09:04→16:45)
[2018-12-30] MEDS ORDERED: MIDAZOLAM HCL 2 MG/2 ML SINGLE DOSE VIAL ONE (09:04)
[2018-12-30] MEDS ORDERED: ROCURONIUM BROMIDE 50 MG/5 ML SYRINGE ONE (09:05)
--- NOTE | 2018-12-30 10:44 | CONSULT ---
Consult Consult Specialty:: Plastic Surgery Referred by:: Dr Fong/Dr Vikas Izquierdo Reason for Consultation:: Extensive Open wounds both legs with intractable pain - History Source History Provided By: Family Member, Medical Record Limitations to Obtaining History: Language Barrier - Past Medical History ...: No - Alcohol/Substance Use Hx Alcohol Use: No - Smoking History Smoking history: Never smoked Have you smoked in the past 12 months: No Home Medications - Allergies Allergies/Adverse Reactions: Allergies Allergy/AdvReac Type Severity Reaction Status Date / Time No Known Allergies Allergy Verified 12/29/18 16:56 - Home Medications Home Medications: Ambulatory Orders Acetaminophen 650 mg PO PRN PRN 12/30/18 Aspirin 81 mg PO DAILY 12/30/18 Clobetasol Emollient 0.05% Crm 1 applic BID 12/30/18 Ferrous Sulfate DAILY 12/30/18 Gabapentin 10 mg PO DAILY 12/30/18 Lisinopril 10 mg PO DAILY 12/30/18 Physical Exam Vital Signs: Vital Signs Temperature 98.4 F 12/30/18 08:45 Pulse Rate 69 12/30/18 08:45 Respiratory Rate 18 12/30/18 08:45 Blood Pressure 146/81 12/30/18 08:45 O2 Sat by Pulse Oximetry (%) 99 12/30/18 03:30 Labs: CBC, BMP 12/30/18 07:10 12/30/18 07:10 Assessment/Plan Plan /Management /Limitations /Risks: 58 year old [place]er female with language limitations Seen for both lower leg ulcers with drainage, [facility]. Plan : 1. Excisional Debridement Skin, S/C/ extending to Fascia with partial or complete fasciectomy followed by STSG and VAC Application 2. Very High risk for graft failure may require multiple procedures 3. Vigilance Post Compression to prevent graft failure from lower extremity Odema 4. Type and Cross Match 2 units 5. PT post surgery 6. Placement Post surgery dependant on Graft Healing
[2018-12-30] MEDS ORDERED: ceFAZolin SODIUM 1 GM VIAL ONE ×2 (11:10→14:16)
--- NOTE | 2018-12-30 11:13 | CON.ID ---
Consult Consult Specialty:: infectious diseases Referred by:: hospitalist Reason for Consultation:: b/l non healing leg wounds/for grafting - History of Present Illness Chief Complaint: non healing wounds History of Present Illness: 58 yo F h/o HTN HLD chronic leg wounds, nueropathy, s/p bilat leg wound who is admitted to the hospital post skin grafting of her leg patient known to me from previous admission and treated for wound infections before the grafting now doing well post op with both legs having skin grafts patients previous wound were growing multiple organism currently stable post op - History Source History Provided By: Patient, Family Member, Medical Record Limitations to Obtaining History: Language Barrier - Past Medical History ...: No - Alcohol/Substance Use Hx Alcohol Use: No - Smoking History Smoking history: Never smoked Have you smoked in the past 12 months: No Home Medications - Allergies Allergies/Adverse Reactions: Allergies Allergy/AdvReac Type Severity Reaction Status Date / Time No Known Allergies Allergy Verified 12/29/18 16:56 - Home Medications Home Medications: Ambulatory Orders Atorvastatin Ca [Lipitor] 40 mg PO HS 12/30/18 Insulin Glargine,Hum.rec.anlog [Basaglar Kwikpen U-100] 10 units SQ HS 12/30/18 Acetaminophen 650 mg PO Q6H PRN 12/31/18 Aspirin 81 mg PO DAILY 12/31/18 Clobetasol Propionate/Emoll [Clobetasol Emollient 0.05% Crm] 1 applic BID Ferrous Sulfate 325 mg PO BID 12/31/18 Gabapentin 100 mg PO DAILY 12/31/18 Lisinopril [Zestril] 2.5 mg PO DAILY 12/31/18 Review of Systems - Review of Systems Constitutional: reports: No Symptoms Eyes: reports: No Symptoms HENT: reports: No Symptoms Neck: reports: No Symptoms Cardiovascular: reports: No Symptoms Respiratory: reports: No Symptoms Gastrointestinal: reports: No Symptoms Genitourinary: reports: No Symptoms Musculoskeletal: reports: No Symptoms Integumentary: reports: Wound (b/l legs) Neurological: reports: No Symptoms Endocrine: reports: No Symptoms Hematology/Lymphatic: reports: No Symptoms Psychiatric: reports: No Symptoms Physical Exam Vital Signs: Vital Signs Temperature 98.4 F 12/30/18 08:45 Pulse Rate 69 12/30/18 08:45 Respiratory Rate 18 12/30/18 08:45 Blood Pressure 146/81 12/30/18 08:45 O2 Sat by Pulse Oximetry (%) 99 12/30/18 03:30 Constitutional: Yes: Well Nourished, No Distress, Calm Cardiovascular: Yes: Regular Rate and Rhythm Respiratory: Yes: Regular, CTA Bilaterally Gastrointestinal: Yes: Normal Bowel Sounds, Soft Musculoskeletal: Yes: WNL Extremities: Yes: Other Integumentary: Yes: Other Wound/Incision: Yes: Other (b/l skin grafts on the leg with wound vac in place) Neurological: Yes: Alert, Oriented Psychiatric: Yes: Alert, Oriented Labs: CBC, BMP 12/30/18 07:10 12/30/18 07:10 Imaging - Results Chest X-ray: Report Reviewed, Image Reviewed Assessment/Plan 58 year old female with a past medical history of HTN, HLD, bilateral chronic leg wounds secondary to venous ulcers admitted for intractable pain secondary to chronic venous stasis ulcers. Chrnoic venous stasis dermatitis ulcers HTN HLD Anemia CKD post skin grafting plan will start her on abx as per last wound cx will continue abx for some time wound care rest as per the team
[2018-12-30] MEDS ORDERED: ceFAZolin SODIUM 1 GM VIAL IVPB ONE ×2 (11:20→14:20)
[2018-12-30] MEDS ORDERED: LIDOCAINE 1%/EPI 1:100000 (20 ML MULTI DOSE VIAL) IJ ONE (11:29)
--- NOTE | 2018-12-30 12:27 | EKG ---
Test Reason : Blood Pressure : / mmHG Vent. Rate : 062 BPM Atrial Rate : 062 BPM P-R Int : 138 ms QRS Dur : 086 ms QT Int : 390 ms P-R-T Axes : 013 006 046 degrees QTc Int : 395 ms NORMAL SINUS RHYTHM NORMAL ECG WHEN COMPARED WITH ECG OF 08-OCT-2018 16:55, NO SIGNIFICANT CHANGE WAS FOUND Confirmed by CARLOZ KESSLER MD ([id number]) on 12/30/2018 12:26:56 PM Referred By: Confirmed By:CARLOZ KESSLER MD
[2018-12-30] MEDS ORDERED: BACITRACIN 50,000 UNITS VIAL NR ONE ×3 (12:33)
[2018-12-30] MEDS ORDERED: MINERAL OIL 25 ML OIL TP ONE (12:58)
[2018-12-30] MEDS ORDERED: HYDROmorphone HCl 2 MG/ML VIAL ONE (13:17)
[2018-12-30 13:51] LABS: ERYTHROCYTE SEDIMENTATION RATE 25 mm/hr (0-30)
--- NOTE | 2018-12-30 14:03 | PN ---
Teaching Attending Note Name of Resident: Tacos Medrano ATTENDING PHYSICIAN STATEMENT I reviewed the resident's note and discussed the case with the resident. I agree with the resident's findings and plan as documented. SUBJECTIVE:multiple attempts made to see patient but was in OR OBJECTIVE: Last Vital Signs Temp Pulse Resp BP Pulse Ox 98.4 F 69 18 146/81 98 12/30/18 08:45 12/30/18 08:45 12/30/18 08:45 12/30/18 08:45 12/30/18 09:00 ASSESSMENT AND PLAN: 58yo F wtih PMH HTN, dyslipidemia, CKD, DM and B/L LE non healing ulcers came to the ER due to intractable pain of the legs and scheduled surgery for her legs was moved up to today 1. Non healing B/L LE ulcers with intractable pain- curretnly in the OR for skin graft by plastics. on vanco and zosyn. further recommendations per plastics and ID. f/u cx obtained. pain is currently controlled with morphine 2. DM- uncontrolled. cont homee levemir. can titrate up to optimize control 3. CKD- at baseline 4. HTN- can restart home medicatiosn once confirmed 5. DVT ppx- hep sq
[2018-12-30] MEDS ORDERED: BACITRACIN 15 GM TUBE TOPICAL OINTMENT ONE (14:45)
[2018-12-30] MEDS ORDERED: BACITRACIN 15 GM TUBE TOPICAL OINTMENT TP ONE (15:10)
[2018-12-30] MEDS ORDERED: ONDANSETRON 4 MG/2 ML VIAL IVPUSH PRN (17:09)
--- NOTE | 2018-12-30 17:09 | PN ---
Physical Exam: SUBJECTIVE: 58 y/o F w PMH HTN, dyslipidemia, CKD, DM and BL LE non healing ulcers came to the ED 2/2 intractable leg pain. Pt says her pain is in the area of her leg ulcers, burning, nonradiating, and 10/10. She is scheduled for grafting today. She denies NVFCD. OBJECTIVE: Vital Signs Period Temp Pulse Resp BP Sys/Dodson Pulse Ox Last 24 Hr 98.2 F-98.7 F 64-69 18-20 139-154/76-81 98-99 GENERAL: AOx3, in mild acute distress. Urdu speaking only. HEAD: NCAT EYES: NEDRA, EOMI, conjunctiva clear. EARS, NOSE, THROAT: Ears normal, nares patent, oropharynx clear without exudates. Moist mucous membranes. NECK: Normal range of motion, supple without lymphadenopathy, JVD, or masses. LUNGS: CTAB . No wheezes, and no crackles. No accessory muscle use. HEART: RRR s1 s2 ABDOMEN: Soft, BS present in all 4 quadrants, non-distended, no JVD, MUSCULOSKELETAL: No bony deformities or tenderness. No CVA tenderness. UPPER EXTREMITIES: 2+ pulses, warm, well-perfused. No cyanosis. No clubbing. No peripheral edema. LOWER EXTREMITIES: BL distal ulcers worse on LEFT, covered by bandages. 2+ pulses, warm, well-perfused. No calf tenderness. No peripheral edema. NEUROLOGICAL: Cranial nerves II-XII intact. Normal speech. Gait not appreciated. PSYCHIATRIC: Cooperative. Good eye contact. Appropriate mood and affect. SKIN: Warm, dry, normal turgor, no rashes or lesions noted, normal capillary refill. Laboratory Results - last 24 hr 12/29/18 12/29/18 12/29/18 07:10 17:15 17:15 WBC 10.7 H RBC 4.07 Hgb 10.3 L Hct 33.0 MCV 81.0 D MCH 25.2 L D MCHC 31.1 L RDW 20.0 H Plt Count 340 MPV 8.5 Absolute Neuts (auto) 8.4 H Neutrophils % 79.2 D Lymphocytes % 14.7 D Monocytes % 6.0 Eosinophils % 0.0 D Basophils % 0.1 Nucleated RBC % 0 ESR PT with INR INR PTT (Actin FS) Sodium 141 Potassium 4.6 Chloride 112 H Carbon Dioxide 22 Anion Gap 8 BUN 39.3 H Creatinine 1.7 H Est GFR (CKD-EPI)AfAm 37.86 Est GFR (CKD-EPI)NonAf 32.67 Random Glucose 204 H Calcium 9.3 Magnesium Total Bilirubin 0.3 AST 12 L ALT 41 Alkaline Phosphatase 63 C-Reactive Protein 1.0 H Total Protein 6.7 Albumin 3.2 L Urine Color Urine Appearance Urine pH Ur Specific [place] Urine Protein Urine Glucose (UA) Urine Ketones Urine Blood Urine Nitrite Urine Bilirubin Urine Urobilinogen Ur Leukocyte Esterase Urine WBC (Auto) Urine RBC (Auto) Urine Casts (Auto) U Epithel Cells (Auto) Urine Bacteria (Auto) Blood Type O POSITIVE Antibody Screen 12/29/18 12/29/18 12/29/18 19:16 19:16 20:24 WBC RBC Hgb Hct MCV MCH MCHC RDW Plt Count MPV Absolute Neuts (auto) Neutrophils % Lymphocytes % Monocytes % Eosinophils % Basophils % Nucleated RBC % ESR PT with INR 11.80 INR 1.00 PTT (Actin FS) 32.2 Sodium Potassium Chloride Carbon Dioxide Anion Gap BUN Creatinine Est GFR (CKD-EPI)AfAm Est GFR (CKD-EPI)NonAf Random Glucose Calcium Magnesium Total Bilirubin AST ALT Alkaline Phosphatase C-Reactive Protein Total Protein Albumin Urine Color Yellow Urine Appearance Clear Urine pH 6.0 Ur Specific [place] 1.017 Urine Protein Negative Urine Glucose (UA) Negative Urine Ketones Negative Urine Blood Negative Urine Nitrite Negative Urine Bilirubin Negative Urine Urobilinogen 0.2 Ur Leukocyte Esterase 1+ H Urine WBC (Auto) 2 Urine RBC (Auto) 1 Urine Casts (Auto) 1 U Epithel Cells (Auto) 3.2 Urine Bacteria (Auto) 1.4 Blood Type O POSITIVE Antibody Screen Negative 12/30/18 12/30/18 12/30/18 07:10 07:10 07:10 WBC 8.7 RBC 4.07 Hgb 10.5 L Hct 32.9 MCV 80.8 MCH 25.8 MCHC 31.9 L RDW 19.8 H Plt Count 328 MPV 8.5 Absolute Neuts (auto) 6.0 Neutrophils % 69.1 Lymphocytes % 23.6 D Monocytes % 6.8 Eosinophils % 0.3 D Basophils % 0.2 Nucleated RBC % 0 ESR 25 PT with INR 11.40 INR 0.97 PTT (Actin FS) 31.9 Sodium 142 Potassium 5.2 H Chloride 108 H Carbon Dioxide 24 Anion Gap 10 BUN 36.9 H Creatinine 1.7 H Est GFR (CKD-EPI)AfAm 37.86 Est GFR (CKD-EPI)NonAf 32.67 Random Glucose 113 H Calcium 9.0 Magnesium 2.0 Total Bilirubin 0.6 AST 9 L ALT 34 Alkaline Phosphatase 59 C-Reactive Protein Total Protein 6.4 Albumin 3.0 L Urine Color Urine Appearance Urine pH Ur Specific [place] Urine Protein Urine Glucose (UA) Urine Ketones Urine Blood Urine Nitrite Urine Bilirubin Urine Urobilinogen Ur Leukocyte Esterase Urine WBC (Auto) Urine RBC (Auto) Urine Casts (Auto) U Epithel Cells (Auto) Urine Bacteria (Auto) Blood Type Antibody Screen Active Medications Acetaminophen (Tylenol -) 650 mg PO Q6H PRN PRN Reason: PAIN OR FEVER Fentanyl (Sublimaze Injection -) 50 mcg IVPUSH [id number] PRN PRN Reason: PAIN-PACU ORDER X 4 DOSES ONLY Stop: 12/31/18 02:00 Heparin Sodium (Porcine) (Heparin -) 5,000 unit SQ BID [facility] Hydromorphone HCl (Hydromorphone 10 Mg/50 Ml-Ns) 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 [facility]; Protocol Stop: 01/06/19 17:11 Sodium Chloride (Normal Saline -) 1,000 mls @ 75 mls/hr IV ASDIR [facility] Last Admin: 12/29/18 23:03 Dose: 75 mls/hr Piperacillin Sod/Tazobactam (Sod 2.25 gm/ Dextrose) 50 mls @ 100 mls/hr IVPB Q6H-IV [facility]; Protocol Lactated Ringer's (Lactated Ringers Solution) 1,000 mls @ 125 mls/hr IV ASDIR [facility] Morphine Sulfate (Morphine Sulfate) 2 mg IVPUSH Q6H PRN PRN Reason: PAIN LEVEL 7 - 10 Last Admin: 12/30/18 09:13 Dose: 2 mg Ondansetron HCl (Zofran Injection) 4 mg IVPUSH Q6H PRN PRN Reason: NAUSEA Ondansetron HCl (Zofran Injection) 4 mg IVPUSH Q6H PRN PRN Reason: NAUSEA AND/OR VOMITING ASSESSMENT/PLAN: 58 y/o F w PMH HTN, dyslipidemia, CKD, DM and BL LE non-healing ulcers whom came to the ED 2/2 intractable leg pain. Pt went for grafting today. # Non-healing BL LE ulcers w intractable pain - Curretnly in the OR for skin graft by plastic sx - Pain relief w morphine - Vanco and zosyn - ID consulted (Dr. Cevallos) - Plastic sx consulted (Dr. Quintana): Plan for excisional debridement skin, S/C/ extending to Fascia with partial or complete fasciectomy followed by STSG and VAC Application. Very High risk for graft failure may require multiple procedures. Vigilance Post Compression to prevent graft failure from lower extremity edema. Type and Cross Match 2 units. PT post surgery. Placement post surgery dependant on graft healing. # DM - Uncontrolled - ISS/ cont. home levemir - Can titrate up to optimize control # CKD - At baseline # HTN - Cont. home regimen # DVT prophylaxis - Heparin Tacos Medrano MD Visit type - Emergency Visit Emergency Visit: No - New Patient This patient is new to me today: Yes Date on this admission: 12/30/18 - Critical Care Critical Care patient: No - Discharge Referral Referred to [facility] No ATTENDING PHYSICIAN STATEMENT I saw and evaluated the patient. I reviewed the resident's note and discussed the case with the resident. I agree with the resident's findings and plan as documented. SUBJECTIVE: OBJECTIVE: ASSESSMENT AND PLAN:
[2018-12-30] MEDS ORDERED: HYDROmorphone *PCA* 10MG/50ML DISP.SYRIN PCA ONE (17:15)
[2018-12-30] MEDS ORDERED: ACETAMINOPHEN 650 MG PO PRN (18:03)
[2018-12-30] MEDS ORDERED: ACETAMINOPHEN INJECTION 100 ML IVPB ONE (18:49)
[2018-12-30] MEDS ORDERED: ACETAMINOPHEN 1000 MG/100 ML VIAL (NON FORMULARY) IVPB ONE ×2 (19:00)
[2018-12-30] MEDS: HYDROmorphone *PCA* 10MG/50ML DISP.SYRIN PCA SCH ×2 (21:00→21:47)
[2018-12-30] MEDS ORDERED: SODIUM CHLORIDE 1,000 ML IV SCH (21:15)
[2018-12-30 21:34] LABS: PH,URINE 5.5 (5.0-8.0); URINE APPEARANCE CLEAR; URINE BILIRUBIN NEGATIVE (NEGATIVE); URINE COLOR YELLOW; URINE GLUCOSE (UA) NEGATIVE (NEGATIVE); URINE KETONE NEGATIVE (NEGATIVE); URINE LEUK ESTERASE NEGATIVE (NEGATIVE); URINE NITRITE NEGATIVE (NEGATIVE); URINE PROTEIN NEGATIVE (NEGATIVE); URINE UROBILINOGEN 0.2 mg/dL (0.2-1.0)
[2018-12-30] MEDS: LACTATED RINGERS SOLUTION 1,000 ML IV SCH (21:46)
[2018-12-30] MEDS: FERROUS SO4 325 MG TABLET (FP) PO SCH (21:57)
[2018-12-30] MEDS: ATORVASTATIN CA 40 MG TABLET (FP) PO SCH (21:57)
[2018-12-30] MEDS: INSULIN SLIDING SCALE (NOVOLOG) 1 VIAL SQ SCH (22:04)
[2018-12-30] MEDS ORDERED: PIPERACILLIN/TAZOB 2.25 GM 2.25 GM in DEXTROSE 5%-WATER - 50 ML IVPB SCH (22:30)
[2018-12-31] MEDS ORDERED: DEXTROSE 5%-WATER - 50 ML IVPB ONE ×3 (02:30→16:07)
[2018-12-31] MEDS ORDERED: PIPERACILLIN/TAZOBACTAM 2.25 GM VIAL IVPB ONE ×4 (02:30→22:27)
[2018-12-31] MEDS: PIPERACILLIN/TAZOB 2.25 GM 2.25 GM in DEXTROSE 5%-WATER - 50 ML IVPB SCH ×4 (02:35→22:34)
[2018-12-31] MEDS: INSULIN SLIDING SCALE (NOVOLOG) 1 VIAL SQ SCH ×4 (06:31→22:40)
[2018-12-31 08:04] LABS: BASO % 0.2 % (0-2.0); EOS % 0.1 % (0-4.5); HEMOGLOBIN 9.4 GM/dL (10.7-15.3); LYMPH % 18.1 % (8-40); MCH 25.4 pg (25.7-33.7); MCHC 31.3 g/dl (32.0-36.0); MEAN CELL VOLUME 81.3 fl (80-96); MEAN PLT VOLUME 8.6 fl (7.5-11.1); MONO % 8.7 % (3.8-10.2); NEUT % 72.9 % (42.8-82.8); PLATELET COUNT 281 K/MM3 (134-434); RBC 3.69 M/mm3 (3.60-5.2); RDW 19.5 % (11.6-15.6)
[2018-12-31 08:25] LABS: ALBUMIN 2.5 g/dl (3.4-5.0); BILIRUBIN,TOTAL 0.5 mg/dL (0.2-1); BLOOD UREA NITROGEN 30.9 mg/dL (7-18); CALCIUM 8.4 mg/dL (8.5-10.1); CREATININE 1.6 mg/dL (0.55-1.3); MAGNESIUM 1.9 mg/dL (1.8-2.4); PHOSPHOROUS 3.9 mg/dL (2.5-4.9); POTASSIUM 4.8 mmol/L (3.5-5.1); TOT PROT 5.5 g/dl (6.4-8.2)
--- NOTE | 2018-12-31 08:36 | PN ---
Progress Note (short form) - Note Progress Note: Anesthesia POD#1 S/P Lower Extremity skin Graft under GA and Dilaudid CUPBOARD BUILDER VSS,no N/V,pain is not well controlled. No injuries from anesthesia. A/P Patient is given instructions about using the CUPBOARD BUILDER properly. So ,continue the CUPBOARD BUILDER for today. Eve Green MD.
[2018-12-31] MEDS ORDERED: PT OWN MED DRAWER 7, Y5N ONE (08:52)
[2018-12-31] MEDS: FERROUS SO4 325 MG TABLET (FP) PO SCH ×2 (09:17→22:37)
[2018-12-31] MEDS: GABAPENTIN 100 MG CAPSULE (FP) PO SCH (09:17)
[2018-12-31] MEDS: ASPIRIN 81 MG CHEWABLE TABLETS PO SCH (09:17)
[2018-12-31] MEDS: LISINOPRIL 5 MG TABLET (FP) PO SCH (09:17)
[2018-12-31] MEDS: HEPARIN NA (PORCINE) 5,000 UNITS/ML 1ML VIAL SQ SCH ×2 (09:19→22:37)
[2018-12-31] MEDS ORDERED: PNEUMOC 13-VAL CONJ-DIP CRM/PF 0.5 ML DISP.SYRIN IM ONE (10:00)
[2018-12-31] MEDS ORDERED: INSULIN SLIDING SCALE (NOVOLOG) 1 VIAL SQ SCH (10:00)
--- NOTE | 2018-12-31 10:16 | PN ---
Teaching Attending Note Name of Resident: Tacos Medrano ATTENDING PHYSICIAN STATEMENT I saw and evaluated the patient. I reviewed the resident's note and discussed the case with the resident. I agree with the resident's findings and plan as documented. SUBJECTIVE:c/o pain, has moderate relief with SHAPER AND PRESSER pump. denies Cp, SOB, fever, chills, N/V/C/D OBJECTIVE: Last Vital Signs Temp Pulse Resp BP Pulse Ox 98.8 F 107 H 19 119/74 98 12/31/18 08:40 12/31/18 08:40 12/31/18 08:40 12/31/18 08:40 12/30/18 21:30 General NAD CV S1 s2 RRR no murmur/rub/gallop Lungs CTA B/L no wheezing/rales/rhonchi Abdomen soft NT/ND extremities B/L LE wrapped dressing c/d/i. wound vac applied to R ankle and L lower leg ASSESSMENT AND PLAN: 58yo F with PMH HTN, dyslipidemia, CKD, DM and B/L LE non healing ulcers came to the ER due to intractable pain of the legs and scheduled surgery for her legs was moved up to today 1. Non healing B/L LE ulcers with intractable pain-s/p B/L LE skin graft 12/30. wound vac x [address] on zosyn day 2. Dilaudid SHAPER AND PRESSER pump for pain. further recommendations per plastics and ID. f/u Cx. 2. Hyperkalemia- resolved 3. DM- uncontrolled. cont home levemir. can titrate up to optimize control 4. CKD- at baseline 5. HTN-cont home medications 6. DVT ppx- hep sq
[2018-12-31] MEDS: HYDROmorphone *PCA* 10MG/50ML DISP.SYRIN PCA SCH ×2 (12:25→18:07)
--- NOTE | 2018-12-31 12:47 | PN ---
Progress Note, Physician History of Present Illness: patient stable no new issues post op grafting wound vac in place - Current Medication List Current Medications: Active Medications Acetaminophen (Tylenol -) 650 mg PO Q6H PRN PRN Reason: PAIN OR FEVER Aspirin (Asa -) 81 mg PO DAILY [facility] Last Admin: 12/31/18 09:17 Dose: 81 mg Atorvastatin Calcium (Lipitor -) 40 mg PO HS [facility] Last Admin: 12/30/18 21:57 Dose: 40 mg Ferrous Sulfate (Feosol -) 325 mg PO BID [facility] Last Admin: 12/31/18 09:17 Dose: 325 mg Gabapentin (Neurontin -) 100 mg PO DAILY [facility] Last Admin: 12/31/18 09:17 Dose: 100 mg Heparin Sodium (Porcine) (Heparin -) 5,000 unit SQ BID [facility] Last Admin: 12/31/18 09:19 Dose: 5,000 unit Hydromorphone HCl (Hydromorphone 10 Mg/50 Ml-Ns) 10 mg 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 HELPER ROUGHER HELPER [facility]; Protocol Stop: 01/06/19 17:11 Last Admin: 12/31/18 12:25 Dose: 10 mg Piperacillin Sod/Tazobactam (Sod 2.25 gm/ Dextrose) 50 mls @ 100 mls/hr IVPB Q6H-IV [facility]; Protocol Last Admin: 12/31/18 09:17 Dose: 100 mls/hr Lactated Ringer's (Lactated Ringers Solution) 1,000 mls @ 125 mls/hr IV ASDIR [facility] Last Admin: 12/30/18 21:46 Dose: Not Given Insulin Aspart (Novolog Vial Sliding Scale -) 1 vial SQ ACHS [facility]; Protocol Last Admin: 12/31/18 12:05 Dose: 3 unit Lisinopril (Prinivil) 2.5 mg PO DAILY [facility] Last Admin: 12/31/18 09:17 Dose: 2.5 mg Ondansetron HCl (Zofran Injection) 4 mg IVPUSH Q6H PRN PRN Reason: NAUSEA Ondansetron HCl (Zofran Injection) 4 mg IVPUSH Q6H PRN PRN Reason: NAUSEA AND/OR VOMITING - Objective Vital Signs: Vital Signs Temperature 98.8 F 12/31/18 08:40 Pulse Rate 88 12/31/18 12:25 Respiratory Rate 19 12/31/18 12:25 Blood Pressure 113/60 12/31/18 12:25 O2 Sat by Pulse Oximetry (%) 96 12/31/18 12:25 Constitutional: Yes: No Distress, Calm Cardiovascular: Yes: Regular Rate and Rhythm Respiratory: Yes: Regular, CTA Bilaterally Gastrointestinal: Yes: Normal Bowel Sounds, Soft Musculoskeletal: Yes: WNL Extremities: Yes: Other Neurological: Yes: Alert, Oriented Psychiatric: Yes: Alert, Oriented Labs: CBC, BMP 12/31/18 06:40 12/31/18 06:40 INR, PTT INR 0.97 (0.83-1.09) 12/30/18 07:10 Assessment/Plan 58 year old female with a past medical history of HTN, HLD, bilateral chronic leg wounds secondary to venous ulcers admitted for intractable pain secondary to chronic venous stasis ulcers. Chrnoic venous stasis dermatitis ulcers HTN HLD Anemia CKD plan conitnue current mgmt abx wound care rest as per the team
[2018-12-31 15:25] VITALS: BMI 25.7
--- NOTE | 2018-12-31 15:41 | PN ---
Physical Exam: SUBJECTIVE: 58 y/o F w PMH HTN, dyslipidemia, CKD, DM and BL LE non healing ulcers whom came to the ED 2/2 intractable leg pain and admitted for surgical grafting. Pt post op today. She c/o of pain in her legs only on movement. She is breathing well, has an incentive spirometer at bedside, and instructed on appropriate use. She was able to walk a few steps with PT today. She denies NVFCD. OBJECTIVE: Vital Signs Period Temp Pulse Resp BP Sys/Dodson Pulse Ox Last 24 Hr 97.9 F-98.8 F 69-107 12-20 113-163/60-99 94-100 GENERAL: AOx3, in no acute distress. Russian speaking only. HEAD: NCAT EYES: NEDRA, EOMI, conjunctiva clear. EARS, NOSE, THROAT: Ears normal, nares patent, oropharynx clear without exudates. Moist mucous membranes. NECK: Normal range of motion, supple without lymphadenopathy, JVD, or masses. LUNGS: CTAB . No wheezes, and no crackles. No accessory muscle use. HEART: RRR s1 s2 no rubs, gallops, murmurs ABDOMEN: Soft, BS present in all 4 quadrants, non-distended, no JVD, MUSCULOSKELETAL: No bony deformities or tenderness. No CVA tenderness. UPPER EXTREMITIES: 2+ pulses, warm, well-perfused. No cyanosis. No clubbing. No peripheral edema. LOWER EXTREMITIES: BL circumferential bandages, on distal LE and proximal LE ( site of autograft) covered by bandages. [address] pulses not appreciable, warm, No peripheral edema. NEUROLOGICAL: Cranial nerves II-XII intact. Normal speech. Gait not appreciated. PSYCHIATRIC: Cooperative. Good eye contact. Appropriate mood and affect. SKIN: Warm, dry, normal turgor, no rashes or lesions noted, normal capillary refill. Laboratory Results - last 24 hr 12/30/18 12/30/18 12/31/18 20:45 22:01 06:29 WBC RBC Hgb Hct MCV MCH MCHC RDW Plt Count MPV Absolute Neuts (auto) Neutrophils % Lymphocytes % Monocytes % Eosinophils % Basophils % Nucleated RBC % Sodium Potassium Chloride Carbon Dioxide Anion Gap BUN Creatinine Est GFR (CKD-EPI)AfAm Est GFR (CKD-EPI)NonAf POC Glucometer 140 131 Random Glucose Calcium Phosphorus Magnesium Total Bilirubin AST ALT Alkaline Phosphatase Total Protein Albumin Urine Color Yellow Urine Appearance Clear Urine pH 5.5 Ur Specific [place] 1.014 Urine Protein Negative Urine Glucose (UA) Negative Urine Ketones Negative Urine Blood Negative Urine Nitrite Negative Urine Bilirubin Negative Urine Urobilinogen 0.2 Ur Leukocyte Esterase Negative 12/31/18 12/31/18 12/31/18 06:40 06:40 12:04 WBC 10.0 RBC 3.69 Hgb 9.4 L Hct 30.0 L MCV 81.3 MCH 25.4 L MCHC 31.3 L RDW 19.5 H Plt Count 281 MPV 8.6 Absolute Neuts (auto) 7.3 Neutrophils % 72.9 Lymphocytes % 18.1 D Monocytes % 8.7 Eosinophils % 0.1 Basophils % 0.2 Nucleated RBC % 0 Sodium 142 Potassium 4.8 Chloride 108 H Carbon Dioxide 26 Anion Gap 8 BUN 30.9 H Creatinine 1.6 H Est GFR (CKD-EPI)AfAm 40.74 Est GFR (CKD-EPI)NonAf 35.15 POC Glucometer 164 Random Glucose 127 H Calcium 8.4 L Phosphorus 3.9 Magnesium 1.9 Total Bilirubin 0.5 AST 7 L ALT 23 Alkaline Phosphatase 53 Total Protein 5.5 L Albumin 2.5 L Urine Color Urine Appearance Urine pH Ur Specific [place] Urine Protein Urine Glucose (UA) Urine Ketones Urine Blood Urine Nitrite Urine Bilirubin Urine Urobilinogen Ur Leukocyte Esterase Active Medications Acetaminophen (Tylenol -) 650 mg PO Q6H PRN PRN Reason: PAIN OR FEVER Aspirin (Asa -) 81 mg PO DAILY [facility] Last Admin: 12/31/18 09:17 Dose: 81 mg Atorvastatin Calcium (Lipitor -) 40 mg PO HS [facility] Last Admin: 12/30/18 21:57 Dose: 40 mg Ferrous Sulfate (Feosol -) 325 mg PO BID [facility] Last Admin: 12/31/18 09:17 Dose: 325 mg Gabapentin (Neurontin -) 100 mg PO DAILY [facility] Last Admin: 12/31/18 09:17 Dose: 100 mg Heparin Sodium (Porcine) (Heparin -) 5,000 unit SQ BID [facility] Last Admin: 12/31/18 09:19 Dose: 5,000 unit Hydromorphone HCl (Hydromorphone 10 Mg/50 Ml-Ns) 10 mg WORLD TRAVEL COUNSELOR WORLD TRAVEL COUNSELOR [facility]; Protocol Stop: 01/06/19 17:11 Last Admin: 12/31/18 12:25 Dose: 10 mg Piperacillin Sod/Tazobactam (Sod 2.25 gm/ Dextrose) 50 mls @ 100 mls/hr IVPB Q6H-IV [facility]; Protocol Last Admin: 12/31/18 09:17 Dose: 100 mls/hr Lactated Ringer's (Lactated Ringers Solution) 1,000 mls @ 125 mls/hr IV ASDIR [facility] Last Admin: 12/30/18 21:46 Dose: Not Given Insulin Aspart (Novolog Vial Sliding Scale -) 1 vial SQ ACHS [facility]; Protocol Last Admin: 12/31/18 12:05 Dose: 3 unit Lisinopril (Prinivil) 2.5 mg PO DAILY [facility] Last Admin: 12/31/18 09:17 Dose: 2.5 mg Ondansetron HCl (Zofran Injection) 4 mg IVPUSH Q6H PRN PRN Reason: NAUSEA Ondansetron HCl (Zofran Injection) 4 mg IVPUSH Q6H PRN PRN Reason: NAUSEA AND/OR VOMITING ASSESSMENT/PLAN: 58 y/o F w PMH HTN, dyslipidemia, CKD, DM and BL LE non-healing ulcers whom came to the ED 2/2 intractable leg pain. Pt post op from grafting and tolerated surgery well. # Non-healing BL LE ulcers w intractable pain - Pain relief w dilauded PCI pump. Pt instructed to utilize pump today and plan to titrate use down in coming days. - Bowers in place for tonight. Remove in AM. - Was able to walk a few steps w PT today. WBAT per plastic surgeon. PT to return tomorrow - Wound vac in place BL LE - ID consulted (Dr. Cevallos) - Cont. Vanco and zosyn - Cx (+) for pseudomonas - Plastic sx consulted (Dr. Quintana): # DM - ISS # CKD - At baseline # HTN - Cont. home regimen # Hyperkalemia - Resolved # F/E/N - LR - Cont. to monitor - Diabetic/low na diet # DVT prophylaxis - Heparin Tacos Medrano MD Visit type - Emergency Visit Emergency Visit: No - New Patient This patient is new to me today: No - Critical Care Critical Care patient: No - Discharge Referral Referred to [facility] Med P.C.: No ATTENDING PHYSICIAN STATEMENT I saw and evaluated the patient. I reviewed the resident's note and discussed the case with the resident. I agree with the resident's findings and plan as documented. SUBJECTIVE: OBJECTIVE: ASSESSMENT AND PLAN:
--- NOTE | 2018-12-31 18:41 | OP ---
DATE OF OPERATION: DATE OF DICTATION: 12/31/2018 PREOPERATIVE DIAGNOSES: 1. Chronic wound, right lower leg. 2. Chronic wound, left lower leg, exposed tendons, exposed bone. POSTOPERATIVE DIAGNOSES: 1. Chronic wound, right lower leg. 2. Chronic wound, left lower leg, exposed tendons, exposed bone. PROCEDURE DONE: 1. Excisional debridement skin, subcutaneous tissue, right leg. 2. Excisional debridement skin, subcutaneous tissue, muscle, left leg. 3. Ostectomy, right tibial bone. 4. Ostectomy, left tibial bone. 5. Bone drilling, right tibia. 6. Bone drilling, left tibial plateau. 7. Pulsavac irrigation, right leg. 8. Pulsavac irrigation, left leg. 9. Split-thickness skin graft, right leg. 10. Split-thickness skin graft, left leg. ANESTHESIOLOGIST: Manjinder Stanton MD TYPE OF ANESTHESIA: General. HISTORY: Patient is 58-year-old Jamaican-speaking female admitted from emergency room for acute pain on both lower legs intolerable in nature. Patient has extensive wounds on both legs, worse right leg with exposed tendons and bone. DESCRIPTION OF PROCEDURE: Patient was brought to the operating room. Sites of surgery were identified. At this time, general anesthesia was administered. Patient was intubated. Type of anesthesia, general. After patient had been intubated, both thighs were prepped and draped in a standard, aseptic manner using Hibiclens solution, which was left for 3 minutes before draping. Lower extremities were also washed and cleaned with Betadine soap and solution and draped in a standard manner. Left leg was kept elevated on resting splints. Grafting donor site, right thigh, left thigh. Type of dermatome, Cristofer dermatome. Thickness of the graft, 1/12 of an inch. Mesh, two 3 to 1 and one 2 to 1.5 kept in a saline sponge. Excision debridement both legs. FINDINGS: Exposed cortex tibial bone, right and left leg. Loss of muscle mass. Contractures of the ankle. Exposed tendons on the dorsum foot to the 2nd and the 1st toes. After skin sharp excisional debridement, split-thickness skin grafts were then applied to both legs and surgically fixated with moe. Next, VAC dressings were applied to both the right leg and the left leg at 125 continuous. Total time period was 3-1/2 hours of surgery due to extensive injuries and complicated procedures. Estimated blood loss over 100 mL. This is the 1st of multiple surgeries, which the patient will require to avoid amputations. Family will be informed of the findings during surgery. With extensive areas of bone being exposed, coverage is a problem. Patient was given IV antibiotics prior to surgery, 1 g of Ancef. Patient was sent to recovery room in a stable condition. Delaying surgery also due to left leg VAC dressing machine was continuously beeping for leaks. It took a long time to correct the leak. Patient will be observed carefully and will require extensive rehabilitation, but major worry is bone exposure and coverage. This will be informed. LEANDRO MAN M.D. [id number]
[2018-12-31] MEDS: LACTATED RINGERS SOLUTION 1,000 ML IV SCH (19:03)
[2018-12-31] MEDS ORDERED: DEXTROSE 5%-WATER - 100 ML IVPB ONE (22:27)
[2018-12-31] MEDS: ATORVASTATIN CA 40 MG TABLET (FP) PO SCH (22:37)
[2019-01-01] MEDS: PIPERACILLIN/TAZOB 2.25 GM 2.25 GM in DEXTROSE 5%-WATER - 50 ML IVPB SCH ×4 (02:21→21:45)
[2019-01-01] MEDS: HYDROmorphone *PCA* 10MG/50ML DISP.SYRIN PCA SCH ×2 (02:29→13:56)
[2019-01-01] MEDS: INSULIN SLIDING SCALE (NOVOLOG) 1 VIAL SQ SCH ×4 (07:00→21:46)
[2019-01-01 08:42] LABS: BASO % 0.4 % (0-2.0); EOS % 0.4 % (0-4.5); HEMATOCRIT 29.5 % (32.4-45.2); HEMOGLOBIN 9.1 GM/dL (10.7-15.3); LYMPH % 23.8 % (8-40); MCH 25.3 pg (25.7-33.7); MCHC 30.8 g/dl (32.0-36.0); MEAN CELL VOLUME 82.4 fl (80-96); MEAN PLT VOLUME 8.6 fl (7.5-11.1); MONO % 6.1 % (3.8-10.2); NEUT % 69.3 % (42.8-82.8); PLATELET COUNT 282 K/MM3 (134-434); RBC 3.58 M/mm3 (3.60-5.2); WHITE BLOOD COUNT 13.5 K/mm3 (4.0-10.0)
[2019-01-01 09:01] LABS: ALBUMIN 2.5 g/dl (3.4-5.0); BILIRUBIN,TOTAL 0.4 mg/dL (0.2-1); BLOOD UREA NITROGEN 32.8 mg/dL (7-18); CALCIUM 8.4 mg/dL (8.5-10.1); CREATININE 1.8 mg/dL (0.55-1.3); PHOSPHOROUS 3.3 mg/dL (2.5-4.9); POTASSIUM 4.2 mmol/L (3.5-5.1); TOT PROT 5.9 g/dl (6.4-8.2)
[2019-01-01] MEDS ORDERED: PIPERACILLIN/TAZOBACTAM 2.25 GM VIAL IVPB ONE ×3 (09:26→21:24)
[2019-01-01] MEDS ORDERED: DEXTROSE 5%-WATER - 50 ML IVPB ONE ×3 (09:26→21:24)
[2019-01-01] MEDS: ASPIRIN 81 MG CHEWABLE TABLETS PO SCH (10:00)
[2019-01-01] MEDS: GABAPENTIN 100 MG CAPSULE (FP) PO SCH (10:00)
[2019-01-01] MEDS: LISINOPRIL 5 MG TABLET (FP) PO SCH (10:01)
[2019-01-01] MEDS: FERROUS SO4 325 MG TABLET (FP) PO SCH ×2 (10:01→21:46)
[2019-01-01] MEDS: HEPARIN NA (PORCINE) 5,000 UNITS/ML 1ML VIAL SQ SCH ×2 (10:01→21:46)
--- NOTE | 2019-01-01 10:32 | PN ---
Progress Note, Physician History of Present Illness: stable doing well no complaints - Current Medication List Current Medications: Active Medications Acetaminophen (Tylenol -) 650 mg PO Q6H PRN PRN Reason: PAIN OR FEVER Aspirin (Asa -) 81 mg PO DAILY [facility] Last Admin: 01/01/19 10:00 Dose: 81 mg Atorvastatin Calcium (Lipitor -) 40 mg PO HS [facility] Last Admin: 12/31/18 22:37 Dose: 40 mg Ferrous Sulfate (Feosol -) 325 mg PO BID [facility] Last Admin: 01/01/19 10:01 Dose: 325 mg Gabapentin (Neurontin -) 100 mg PO DAILY [facility] Last Admin: 01/01/19 10:00 Dose: 100 mg Heparin Sodium (Porcine) (Heparin -) 5,000 unit SQ BID [facility] Last Admin: 01/01/19 10:01 Dose: 5,000 unit Hydromorphone HCl (Hydromorphone 10 Mg/50 Ml-Ns) 10 mg IDENTITY MANAGEMENT DEVELOPER IDENTITY MANAGEMENT DEVELOPER [facility]; Protocol Stop: 01/06/19 17:11 Last Admin: 01/01/19 02:29 Dose: 10 mg Piperacillin Sod/Tazobactam (Sod 2.25 gm/ Dextrose) 50 mls @ 100 mls/hr IVPB Q6H-IV [facility]; Protocol Last Admin: 01/01/19 10:00 Dose: 100 mls/hr Lactated Ringer's (Lactated Ringers Solution) 1,000 mls @ 125 mls/hr IV ASDIR [facility] Last Admin: 12/31/18 19:03 Dose: Not Given Insulin Aspart (Novolog Vial Sliding Scale -) 1 vial SQ ACHS [facility]; Protocol Last Admin: 01/01/19 07:00 Dose: Not Given Lisinopril (Prinivil) 2.5 mg PO DAILY [facility] Last Admin: 01/01/19 10:01 Dose: Not Given Ondansetron HCl (Zofran Injection) 4 mg IVPUSH Q6H PRN PRN Reason: NAUSEA Ondansetron HCl (Zofran Injection) 4 mg IVPUSH Q6H PRN PRN Reason: NAUSEA AND/OR VOMITING - Objective Vital Signs: Vital Signs Temperature 99.0 F 01/01/19 04:00 Pulse Rate 92 H 01/01/19 04:00 Respiratory Rate 16 01/01/19 04:00 Blood Pressure 101/61 01/01/19 04:00 O2 Sat by Pulse Oximetry (%) 96 12/31/18 21:00 Constitutional: Yes: No Distress, Calm Cardiovascular: Yes: S1, S2 Respiratory: Yes: Regular, CTA Bilaterally Gastrointestinal: Yes: Normal Bowel Sounds, Soft Musculoskeletal: Yes: WNL Extremities: Yes: WNL Wound/Incision: Yes: Dressing Dry and Intact, Other (wound vac in place) Neurological: Yes: Alert, Oriented Psychiatric: Yes: Alert, Oriented Labs: CBC, BMP 01/01/19 07:30 01/01/19 07:30 INR, PTT INR 0.97 (0.83-1.09) 12/30/18 07:10 Assessment/Plan 58 year old female with a past medical history of HTN, HLD, bilateral chronic leg wounds secondary to venous ulcers admitted for intractable pain secondary to chronic venous stasis ulcers. Chrnoic venous stasis dermatitis ulcers HTN HLD Anemia CKD post skin grafting plan abx wound care rest as per the team
--- NOTE | 2019-01-01 14:54 | PN ---
Progress Note (short form) - Note Progress Note: c/o pain which is improved with pain medication. denies CP, SOB,fever, chills, N /V/C/D Current Medications Generic Name Dose Route Start Last Admin Trade Name Freq PRN Reason Stop Dose Admin Acetaminophen 650 mg 12/29/18 21:49 Tylenol - PO Q6H PRN PAIN OR FEVER Aspirin 81 mg 12/31/18 10:00 01/01/19 10:00 Asa - PO 81 mg DAILY [facility] Administration Atorvastatin Calcium 40 mg 12/30/18 22:00 12/31/18 22:37 Lipitor - PO 40 mg HS [facility] Administration Ferrous Sulfate 325 mg 12/30/18 22:00 01/01/19 10:01 Feosol - PO 325 mg BID [facility] Administration Gabapentin 100 mg 12/31/18 10:00 01/01/19 10:00 Neurontin - PO 100 mg DAILY [facility] Administration Heparin Sodium (Porcine) 5,000 unit 12/31/18 10:00 01/01/19 10:01 Heparin - SQ 5,000 unit BID [facility] Administration Hydromorphone HCl 10 mg 12/30/18 17:15 01/01/19 13:56 Hydromorphone 10 Mg/50 Ml-Ns VENEER JOINER 01/06/19 17:11 10 mg VENEER JOINER ENZO Administration Protocol Piperacillin Sod/Tazobactam 50 mls @ 100 mls/hr 12/30/18 11:30 01/01/19 10:00 Sod 2.25 gm/ Dextrose IVPB 100 mls/hr Q6H-IV [facility] Administration Protocol Lactated Ringer's 1,000 mls @ 125 mls/hr 12/30/18 17:15 12/31/18 19:03 Lactated Ringers Solution IV Not Given [facility] Insulin Aspart 1 vial 12/30/18 22:00 01/01/19 11:45 Novolog Vial Sliding Scale - SQ Not Given ACHS [facility] Protocol Lisinopril 2.5 mg 12/31/18 10:00 01/01/19 10:01 Prinivil PO Not Given DAILY [facility] Ondansetron HCl 4 mg 12/29/18 21:49 Zofran Injection IVPUSH Q6H PRN NAUSEA Ondansetron HCl 4 mg 12/30/18 17:09 Zofran Injection IVPUSH Q6H PRN NAUSEA AND/OR VOMITING Last Vital Signs Temp Pulse Resp BP Pulse Ox 98.6 F 98 H 18 98/62 98 01/01/19 10:00 01/01/19 14:29 01/01/19 14:29 01/01/19 14:29 01/01/19 14:26 General NAD CV S1 s2 RRR no murmur/rub/gallop Lungs CTA B/L no wheezing/rales/rhonchi Abdomen soft NT/ND extremities B/L LE wrapped dressing c/d/i. wound vac applied to R ankle and L lower leg CBCD WBC 13.5 K/mm3 (4.0-10.0) H 01/01/19 07:30 RBC 3.58 M/mm3 (3.60-5.2) L 01/01/19 07:30 Hgb 9.1 GM/dL (10.7-15.3) L 01/01/19 07:30 Hct 29.5 % (32.4-45.2) L 01/01/19 07:30 MCV 82.4 fl (80-96) 01/01/19 07:30 MCHC 30.8 g/dl (32.0-36.0) L 01/01/19 07:30 RDW 20.0 % (11.6-15.6) H 01/01/19 07:30 Plt Count 282 K/MM3 (134-434) 01/01/19 07:30 MPV 8.6 fl (7.5-11.1) 01/01/19 07:30 CMP Sodium 139 mmol/L (136-145) 01/01/19 07:30 Potassium 4.2 mmol/L (3.5-5.1) 01/01/19 07:30 Chloride 103 mmol/L (98-107) 01/01/19 07:30 Carbon Dioxide 25 mmol/L (21-32) 01/01/19 07:30 Anion Gap 11 MMOL/L (8-16) 01/01/19 07:30 BUN 32.8 mg/dL (7-18) H 01/01/19 07:30 Creatinine 1.8 mg/dL (0.55-1.3) H 01/01/19 07:30 Calcium 8.4 mg/dL (8.5-10.1) L 01/01/19 07:30 Total Bilirubin 0.4 mg/dL (0.2-1) 01/01/19 07:30 AST 11 U/L (15-37) L 01/01/19 07:30 ALT 21 U/L (13-61) 01/01/19 07:30 Alkaline Phosphatase 55 U/L (45-117) 01/01/19 07:30 Total Protein 5.9 g/dl (6.4-8.2) L 01/01/19 07:30 Albumin 2.5 g/dl (3.4-5.0) L 01/01/19 07:30 Microbiology 12/30/18 13:10 Gram Stain - Final Tissue-Other Tissue Culture - Final Pseudomonas Aeruginosa Anaerobic Culture - Final NO ANAEROBES WERE ISOLATED 12/30/18 03:30 Gram Stain - Final Foot - Right Wound Culture - Final Pseudomonas Aeruginosa Yeast Like Organism 12/30/18 20:45 Urine Culture - Final Urine - Urine - Catheterized NO GROWTH OBTAINED 12/29/18 19:16 Blood Culture - Preliminary Blood - Peripheral Venous NO GROWTH OBTAINED AFTER 48 HOURS, INCUBATION TO CONTINUE FOR 3 DAYS. 12/29/18 19:16 Blood Culture - Preliminary Blood - Peripheral Venous NO GROWTH OBTAINED AFTER 48 HOURS, INCUBATION TO CONTINUE FOR 3 DAYS. ASSESSMENT AND PLAN: 58yo F with PMH HTN, dyslipidemia, CKD, DM and B/L LE non healing ulcers came to the ER due to intractable pain of the legs and scheduled surgery for her legs was moved up to today 1. Non healing B/L LE ulcers with intractable pain-s/p B/L LE skin graft 12/30. wound vac x [address]. +pseudomonas. on day 3. Dilaudid VENEER JOINER pump for pain. further recommendations per plastics and ID. WBAT. will be re-assessed by plastics on Thursday to determine if further procedures are needed. f/u Cx. d/c torres 2. Hyperkalemia- resolved 3. DM- uncontrolled. cont home levemir. can titrate up to optimize control 4. CKD- at baseline 5. HTN-cont home medications 6. DVT ppx- hep sq Visit type - Emergency Visit Emergency Visit: Yes ED Registration Date: 12/29/18 Care time: The patient presented to the Emergency Department on the above date and was hospitalized for further evaluation of their emergent condition. - New Patient This patient is new to ok today: No - Critical Care Critical Care patient: No - Discharge Referral Referred to [facility] Med P.C.: No
[2019-01-01] MEDS: ATORVASTATIN CA 40 MG TABLET (FP) PO SCH (21:46)
[2019-01-02] MEDS ORDERED: DEXTROSE 5%-WATER - 50 ML IVPB ONE ×4 (02:53→19:43)
[2019-01-02] MEDS ORDERED: PIPERACILLIN/TAZOBACTAM 2.25 GM VIAL IVPB ONE ×4 (02:53→19:43)
[2019-01-02] MEDS: PIPERACILLIN/TAZOB 2.25 GM 2.25 GM in DEXTROSE 5%-WATER - 50 ML IVPB SCH ×4 (03:51→20:37)
[2019-01-02] MEDS: HYDROmorphone *PCA* 10MG/50ML DISP.SYRIN PCA SCH ×3 (04:24→20:36)
[2019-01-02] MEDS: INSULIN SLIDING SCALE (NOVOLOG) 1 VIAL SQ SCH ×3 (06:11→21:50)
[2019-01-02 08:14] LABS: BASO % 0.4 % (0-2.0); EOS % 0.9 % (0-4.5); HEMATOCRIT 29.2 % (32.4-45.2); LYMPH % 23.4 % (8-40); MCH 25.4 pg (25.7-33.7); MEAN CELL VOLUME 81.9 fl (80-96); MEAN PLT VOLUME 8.8 fl (7.5-11.1); MONO % 6.7 % (3.8-10.2); NEUT % 68.6 % (42.8-82.8); PLATELET COUNT 265 K/MM3 (134-434); RBC 3.56 M/mm3 (3.60-5.2); RDW 20.4 % (11.6-15.6); WHITE BLOOD COUNT 12.8 K/mm3 (4.0-10.0)
[2019-01-02 08:43] LABS: BLOOD UREA NITROGEN 36.2 mg/dL (7-18); CALCIUM 8.8 mg/dL (8.5-10.1); CREATININE 1.7 mg/dL (0.55-1.3); POTASSIUM 4.4 mmol/L (3.5-5.1)
[2019-01-02] MEDS: ASPIRIN 81 MG CHEWABLE TABLETS PO SCH (11:18)
[2019-01-02] MEDS: LISINOPRIL 5 MG TABLET (FP) PO SCH (11:18)
[2019-01-02] MEDS: GABAPENTIN 100 MG CAPSULE (FP) PO SCH (11:18)
[2019-01-02] MEDS: HEPARIN NA (PORCINE) 5,000 UNITS/ML 1ML VIAL SQ SCH ×2 (11:19→21:49)
[2019-01-02] MEDS: FERROUS SO4 325 MG TABLET (FP) PO SCH ×2 (11:20→21:49)
--- NOTE | 2019-01-02 11:45 | PN ---
Teaching Attending Note Name of Resident: Tacos Medrano ATTENDING PHYSICIAN STATEMENT I saw and evaluated the patient. I reviewed the resident's note and discussed the case with the resident. I agree with the resident's findings and plan as documented. SUBJECTIVE:c/o pain in L upper thigh. controlled with pain medication. denies CP , SOB, fever, chills, N/V/C/D OBJECTIVE: Last Vital Signs Temp Pulse Resp BP Pulse Ox 98.8 F 96 H 18 110/58 L 95 01/02/19 06:00 01/02/19 06:15 01/02/19 06:15 01/02/19 06:15 01/02/19 06:15 General NAD Extremities dressing in place. wound vac x2 ASSESSMENT AND PLAN: 58yo F with PMH HTN, dyslipidemia, CKD, DM and B/L LE non healing ulcers came to the ER due to intractable pain of the legs and scheduled surgery for her legs was moved up to today 1. Non healing B/L LE ulcers with intractable pain-s/p B/L LE skin graft 12/30. wound vac x [address]. +pseudomonas. on zosyn day 4. Dilaudid CIRCULAR TANK COOPER pump for pain. further recommendations per plastics and ID. WBAT. will be re-assessed by plastics on Thursday to determine if further procedures are needed. f/u Cx. 2. Hyperkalemia- resolved 3. DM- uncontrolled. cont home levemir. can titrate up to optimize control 4. CKD- at baseline 5. HTN-cont home medications 6. DVT ppx- hep sq
--- NOTE | 2019-01-02 12:40 | PN ---
Physical Exam: SUBJECTIVE: 58 y/o F w PMH HTN, dyslipidemia, CKD, DM and BL LE non healing ulcers whom came to the ED 2/2 intractable leg pain and admitted for surgical grafting. Pt POD 3 today. She c/o of pain in her legs only on movement. She is breathing well, has an incentive spirometer at bedside, and instructed on appropriate use. She denies NVFCD. OBJECTIVE: Vital Signs Period Temp Pulse Resp BP Sys/Dodson Pulse Ox Last 24 Hr 97.7 F-98.9 F 91-99 18-20 98-114/52-72 95-98 GENERAL: AOx3, in no acute distress. Syriac speaking only. HEAD: NCAT EYES: NEDRA, EOMI, conjunctiva clear. EARS, NOSE, THROAT: Ears normal, nares patent, oropharynx clear without exudates. Moist mucous membranes. NECK: Normal range of motion, supple without lymphadenopathy, JVD, or masses. LUNGS: CTAB . No wheezes, and no crackles. No accessory muscle use. HEART: RRR s1 s2 no rubs, gallops, murmurs ABDOMEN: Soft, BS present in all 4 quadrants, non-distended, no JVD, MUSCULOSKELETAL: No bony deformities or tenderness. No CVA tenderness. UPPER EXTREMITIES: 2+ pulses, warm, well-perfused. No cyanosis. No clubbing. No peripheral edema. LOWER EXTREMITIES: BL circumferential bandages, on distal LE and proximal LE ( site of autograft) covered by bandages. [address] pulses not appreciable, warm, No peripheral edema. NEUROLOGICAL: Cranial nerves II-XII intact. Normal speech. Gait not appreciated. PSYCHIATRIC: Cooperative. Good eye contact. Appropriate mood and affect. SKIN: Warm, dry, normal turgor, no rashes or lesions noted, normal capillary refill. Laboratory Results - last 24 hr 01/01/19 01/01/19 01/01/19 11:44 17:00 21:44 WBC RBC Hgb Hct MCV MCH MCHC RDW Plt Count MPV Absolute Neuts (auto) Neutrophils % Lymphocytes % Monocytes % Eosinophils % Basophils % Nucleated RBC % Sodium Potassium Chloride Carbon Dioxide Anion Gap BUN Creatinine Est GFR (CKD-EPI)AfAm Est GFR (CKD-EPI)NonAf POC Glucometer 149 136 118 Random Glucose Calcium 01/02/19 01/02/19 01/02/19 06:07 06:45 06:45 WBC 12.8 H RBC 3.56 L Hgb 9.0 L Hct 29.2 L MCV 81.9 MCH 25.4 L MCHC 31.0 L RDW 20.4 H Plt Count 265 MPV 8.8 Absolute Neuts (auto) 8.8 H Neutrophils % 68.6 Lymphocytes % 23.4 Monocytes % 6.7 Eosinophils % 0.9 D Basophils % 0.4 Nucleated RBC % 0 Sodium 138 Potassium 4.4 Chloride 104 Carbon Dioxide 24 Anion Gap 11 BUN 36.2 H Creatinine 1.7 H Est GFR (CKD-EPI)AfAm 37.86 Est GFR (CKD-EPI)NonAf 32.67 POC Glucometer 130 Random Glucose 123 H Calcium 8.8 01/02/19 12:05 WBC RBC Hgb Hct MCV MCH MCHC RDW Plt Count MPV Absolute Neuts (auto) Neutrophils % Lymphocytes % Monocytes % Eosinophils % Basophils % Nucleated RBC % Sodium Potassium Chloride Carbon Dioxide Anion Gap BUN Creatinine Est GFR (CKD-EPI)AfAm Est GFR (CKD-EPI)NonAf POC Glucometer 152 Random Glucose Calcium Active Medications Acetaminophen (Tylenol -) 650 mg PO Q6H PRN PRN Reason: PAIN OR FEVER Aspirin (Asa -) 81 mg PO DAILY [facility] Last Admin: 01/02/19 11:18 Dose: 81 mg Atorvastatin Calcium (Lipitor -) 40 mg PO HS [facility] Last Admin: 01/01/19 21:46 Dose: 40 mg Ferrous Sulfate (Feosol -) 325 mg PO BID [facility] Last Admin: 01/02/19 11:20 Dose: 325 mg Gabapentin (Neurontin -) 100 mg PO DAILY [facility] Last Admin: 01/02/19 11:18 Dose: 100 mg Heparin Sodium (Porcine) (Heparin -) 5,000 unit SQ BID [facility] Last Admin: 01/02/19 11:19 Dose: 5,000 unit Hydromorphone HCl (Hydromorphone 10 Mg/50 Ml-Ns) 10 mg SELF SEALING FUEL TANK REPAIRER SELF SEALING FUEL TANK REPAIRER [facility]; Protocol Stop: 01/06/19 17:11 Last Admin: 01/02/19 04:24 Dose: 10 mg Piperacillin Sod/Tazobactam (Sod 2.25 gm/ Dextrose) 50 mls @ 100 mls/hr IVPB Q6H-IV [facility]; Protocol Last Admin: 01/02/19 11:18 Dose: 100 mls/hr Insulin Aspart (Novolog Vial Sliding Scale -) 1 vial SQ ACHS [facility]; Protocol Last Admin: 01/02/19 06:11 Dose: Not Given Lisinopril (Prinivil) 2.5 mg PO DAILY [facility] Last Admin: 01/02/19 11:18 Dose: 2.5 mg Ondansetron HCl (Zofran Injection) 4 mg IVPUSH Q6H PRN PRN Reason: NAUSEA Ondansetron HCl (Zofran Injection) 4 mg IVPUSH Q6H PRN PRN Reason: NAUSEA AND/OR VOMITING ASSESSMENT/PLAN: 58 y/o F w PMH HTN, HLD, CKD, DM and BL LE non-healing ulcers whom came to the ED 2/2 intractable leg pain. Pt post op from grafting and tolerated surgery well , now POD 3. # Non-healing BL LE ulcers w intractable pain - B/L LE skin graft 30 Dec 2018 - Pain relief w dilauded PCI pump. - Bowers removed - WBAT per plastic surgeon - Wound vac in place BL LE - ID consulted (Dr. Cevallos) - Cont. Vanco and zosyn day 4 - Cx (+) for pseudomonas - Plastic sx consulted (Dr. Quintana): will be re-assessed Thursday01/03/19 # DM - ISS # CKD - At baseline # HTN - Cont. home regimen # Hyperkalemia - Resolved # F/E/N - LR - Cont. to monitor - Diabetic/low na diet # DVT prophylaxis - Heparin Tacos Medrano MD Visit type - Emergency Visit Emergency Visit: No - New Patient This patient is new to me today: No - Critical Care Critical Care patient: No - Discharge Referral Referred to [facility] Med P.C.: No ATTENDING PHYSICIAN STATEMENT I saw and evaluated the patient. I reviewed the resident's note and discussed the case with the resident. I agree with the resident's findings and plan as documented. SUBJECTIVE: OBJECTIVE: ASSESSMENT AND PLAN:
--- NOTE | 2019-01-02 15:09 | PN ---
Progress Note, Physician History of Present Illness: stable no new issues - Current Medication List Current Medications: Active Medications Acetaminophen (Tylenol -) 650 mg PO Q6H PRN PRN Reason: PAIN OR FEVER Aspirin (Asa -) 81 mg PO DAILY [facility] Last Admin: 01/02/19 11:18 Dose: 81 mg Atorvastatin Calcium (Lipitor -) 40 mg PO HS [facility] Last Admin: 01/01/19 21:46 Dose: 40 mg Ferrous Sulfate (Feosol -) 325 mg PO BID [facility] Last Admin: 01/02/19 11:20 Dose: 325 mg Gabapentin (Neurontin -) 100 mg PO DAILY [facility] Last Admin: 01/02/19 11:18 Dose: 100 mg Heparin Sodium (Porcine) (Heparin -) 5,000 unit SQ BID [facility] Last Admin: 01/02/19 11:19 Dose: 5,000 unit Hydromorphone HCl (Hydromorphone 10 Mg/50 Ml-Ns) 10 mg LABORATORY EQUIPMENT CLEANER LABORATORY EQUIPMENT CLEANER [facility]; Protocol Stop: 01/06/19 17:11 Last Admin: 01/02/19 04:24 Dose: 10 mg Piperacillin Sod/Tazobactam (Sod 2.25 gm/ Dextrose) 50 mls @ 100 mls/hr IVPB Q6H-IV [facility]; Protocol Last Admin: 01/02/19 11:18 Dose: 100 mls/hr Insulin Aspart (Novolog Vial Sliding Scale -) 1 vial SQ ACHS [facility]; Protocol Last Admin: 01/02/19 06:11 Dose: Not Given Lisinopril (Prinivil) 2.5 mg PO DAILY [facility] Last Admin: 01/02/19 11:18 Dose: 2.5 mg Ondansetron HCl (Zofran Injection) 4 mg IVPUSH Q6H PRN PRN Reason: NAUSEA Ondansetron HCl (Zofran Injection) 4 mg IVPUSH Q6H PRN PRN Reason: NAUSEA AND/OR VOMITING - Objective Vital Signs: Vital Signs Temperature 98.8 F 01/02/19 06:00 Pulse Rate 88 01/02/19 10:00 Respiratory Rate 18 01/02/19 10:00 Blood Pressure 108/68 01/02/19 10:00 O2 Sat by Pulse Oximetry (%) 95 01/02/19 06:15 Constitutional: Yes: No Distress, Calm Cardiovascular: Yes: S1, S2 Respiratory: Yes: Regular, CTA Bilaterally Gastrointestinal: Yes: Normal Bowel Sounds, Soft Musculoskeletal: Yes: WNL Extremities: Yes: Other Wound/Incision: Yes: Dressing Dry and Intact, Other (wound vac) Neurological: Yes: Alert, Oriented Psychiatric: Yes: Alert, Oriented Labs: CBC, BMP 01/02/19 06:45 01/02/19 06:45 INR, PTT INR 0.97 (0.83-1.09) 12/30/18 07:10 Assessment/Plan 58 year old female with a past medical history of HTN, HLD, bilateral chronic leg wounds secondary to venous ulcers admitted for intractable pain secondary to chronic venous stasis ulcers. Chrnoic venous stasis dermatitis ulcers HTN HLD Anemia CKD post skin grafting plan abx wound care rest as per the team
--- NOTE | 2019-01-02 17:01 | PN ---
HC Provider Note Provider Note: Anesthesia CANDY SEPARATOR ENROBING Rounds Pt awake alert in bed. Pt reports good pain management with CANDY SEPARATOR ENROBING Pt denies nausea/vomiting; no puritis, no urinary retention VSS Continue CANDY SEPARATOR ENROBING Juan Luis Mcdaniel M.D.
[2019-01-02] MEDS: ATORVASTATIN CA 40 MG TABLET (FP) PO SCH (21:51)
[2019-01-03] MEDS ORDERED: PIPERACILLIN/TAZOBACTAM 2.25 GM VIAL IVPB ONE ×4 (02:46→21:24)
[2019-01-03] MEDS ORDERED: DEXTROSE 5%-WATER - 50 ML IVPB ONE ×4 (02:46→21:24)
[2019-01-03] MEDS: PIPERACILLIN/TAZOB 2.25 GM 2.25 GM in DEXTROSE 5%-WATER - 50 ML IVPB SCH ×4 (02:50→21:40)
[2019-01-03] MEDS: ACETAMINOPHEN 325 MG TABLET (FP) PO PRN ×2 (04:38→20:00)
[2019-01-03] MEDS: INSULIN SLIDING SCALE (NOVOLOG) 1 VIAL SQ SCH ×4 (06:04→21:40)
[2019-01-03 08:19] LABS: BASO % 0.4 % (0-2.0); EOS % 1.6 % (0-4.5); HEMATOCRIT 27.6 % (32.4-45.2); HEMOGLOBIN 8.6 GM/dL (10.7-15.3); LYMPH % 23.4 % (8-40); MCH 25.2 pg (25.7-33.7); MEAN CELL VOLUME 81.3 fl (80-96); MEAN PLT VOLUME 8.8 fl (7.5-11.1); MONO % 8.1 % (3.8-10.2); NEUT % 66.5 % (42.8-82.8); PLATELET COUNT 275 K/MM3 (134-434); RBC 3.39 M/mm3 (3.60-5.2); RDW 19.8 % (11.6-15.6); WHITE BLOOD COUNT 12.5 K/mm3 (4.0-10.0)
[2019-01-03 08:36] LABS: ALBUMIN 2.1 g/dl (3.4-5.0); BILIRUBIN,TOTAL 0.4 mg/dL (0.2-1); BLOOD UREA NITROGEN 40.3 mg/dL (7-18); CALCIUM 8.5 mg/dL (8.5-10.1); CREATININE 1.8 mg/dL (0.55-1.3); PHOSPHOROUS 3.3 mg/dL (2.5-4.9); POTASSIUM 4.2 mmol/L (3.5-5.1); TOT PROT 5.5 g/dl (6.4-8.2)
--- NOTE | 2019-01-03 08:36 | PN ---
Progress Note, Physician Chief Complaint: POD4 s/p LE skin graft - Current Medication List Current Medications: Active Medications Acetaminophen (Tylenol -) 650 mg PO Q6H PRN PRN Reason: PAIN OR FEVER Last Admin: 01/03/19 04:38 Dose: 650 mg Aspirin (Asa -) 81 mg PO DAILY [facility] Last Admin: 01/02/19 11:18 Dose: 81 mg Atorvastatin Calcium (Lipitor -) 40 mg PO HS [facility] Last Admin: 01/02/19 21:51 Dose: 40 mg Ferrous Sulfate (Feosol -) 325 mg PO BID [facility] Last Admin: 01/02/19 21:49 Dose: 325 mg Gabapentin (Neurontin -) 100 mg PO DAILY [facility] Last Admin: 01/02/19 11:18 Dose: 100 mg Heparin Sodium (Porcine) (Heparin -) 5,000 unit SQ BID [facility] Last Admin: 01/02/19 21:49 Dose: 5,000 unit Hydromorphone HCl (Hydromorphone 10 Mg/50 Ml-Ns) 10 mg RN PATIENT CARE RN PATIENT CARE [facility]; Protocol Stop: 01/06/19 17:11 Last Admin: 01/02/19 20:36 Dose: Not Given Piperacillin Sod/Tazobactam (Sod 2.25 gm/ Dextrose) 50 mls @ 100 mls/hr IVPB Q6H-IV [facility]; Protocol Last Admin: 01/03/19 02:50 Dose: 100 mls/hr Insulin Aspart (Novolog Vial Sliding Scale -) 1 vial SQ ACHS [facility]; Protocol Last Admin: 01/03/19 06:04 Dose: Not Given Lisinopril (Prinivil) 2.5 mg PO DAILY [facility] Last Admin: 01/02/19 11:18 Dose: 2.5 mg Ondansetron HCl (Zofran Injection) 4 mg IVPUSH Q6H PRN PRN Reason: NAUSEA Ondansetron HCl (Zofran Injection) 4 mg IVPUSH Q6H PRN PRN Reason: NAUSEA AND/OR VOMITING - Objective Vital Signs: Vital Signs Temperature 98.5 F 01/03/19 06:00 Pulse Rate 117 H 01/03/19 04:38 Respiratory Rate 01/03/19 04:38 Blood Pressure 99/59 L 01/03/19 04:38 O2 Sat by Pulse Oximetry (%) 97 01/02/19 21:00 Labs: CBC, BMP 01/03/19 06:50 INR, PTT INR 0.97 (0.83-1.09) 12/30/18 07:10 Assessment/Plan Pt has been using RN PATIENT CARE and is happy with the pain relief. Wants to keep RN PATIENT CARE still. VSS, doing well, will continue with RN PATIENT CARE for now
[2019-01-03] MEDS ORDERED: PT OWN MED DRAWER 7, Y5N ONE ×2 (09:35→21:08)
[2019-01-03] MEDS: ASPIRIN 81 MG CHEWABLE TABLETS PO SCH (09:40)
[2019-01-03] MEDS: HEPARIN NA (PORCINE) 5,000 UNITS/ML 1ML VIAL SQ SCH ×2 (09:40→21:40)
[2019-01-03] MEDS: GABAPENTIN 100 MG CAPSULE (FP) PO SCH (09:41)
[2019-01-03] MEDS: FERROUS SO4 325 MG TABLET (FP) PO SCH ×2 (09:41→21:40)
--- NOTE | 2019-01-03 10:49 | PN ---
Progress Note, Physician History of Present Illness: patient stable no new issues - Current Medication List Current Medications: Active Medications Acetaminophen (Tylenol -) 650 mg PO Q6H PRN PRN Reason: PAIN OR FEVER Last Admin: 01/03/19 04:38 Dose: 650 mg Aspirin (Asa -) 81 mg PO DAILY [facility] Last Admin: 01/03/19 09:40 Dose: 81 mg Atorvastatin Calcium (Lipitor -) 40 mg PO HS [facility] Last Admin: 01/02/19 21:51 Dose: 40 mg Ferrous Sulfate (Feosol -) 325 mg PO BID [facility] Last Admin: 01/03/19 09:41 Dose: 325 mg Gabapentin (Neurontin -) 100 mg PO DAILY [facility] Last Admin: 01/03/19 09:41 Dose: 100 mg Heparin Sodium (Porcine) (Heparin -) 5,000 unit SQ BID [facility] Last Admin: 01/03/19 09:40 Dose: 5,000 unit Hydromorphone HCl (Hydromorphone 10 Mg/50 Ml-Ns) 10 mg CYANIDE FURNACE OPERATOR CYANIDE FURNACE OPERATOR [facility]; Protocol Stop: 01/06/19 17:11 Last Admin: 01/02/19 20:36 Dose: Not Given Piperacillin Sod/Tazobactam (Sod 2.25 gm/ Dextrose) 50 mls @ 100 mls/hr IVPB Q6H-IV [facility]; Protocol Last Admin: 01/03/19 09:40 Dose: 100 mls/hr Insulin Aspart (Novolog Vial Sliding Scale -) 1 vial SQ ACHS [facility]; Protocol Last Admin: 01/03/19 06:04 Dose: Not Given Lisinopril (Prinivil) 2.5 mg PO DAILY [facility] Last Admin: 01/02/19 11:18 Dose: 2.5 mg Ondansetron HCl (Zofran Injection) 4 mg IVPUSH Q6H PRN PRN Reason: NAUSEA Ondansetron HCl (Zofran Injection) 4 mg IVPUSH Q6H PRN PRN Reason: NAUSEA AND/OR VOMITING - Objective Vital Signs: Vital Signs Temperature 98.5 F 01/03/19 06:00 Pulse Rate 117 H 01/03/19 04:38 Respiratory Rate 01/03/19 04:38 Blood Pressure 99/59 L 01/03/19 04:38 O2 Sat by Pulse Oximetry (%) 97 01/02/19 21:00 Constitutional: Yes: No Distress, Calm Cardiovascular: Yes: S1, S2 Respiratory: Yes: Regular, CTA Bilaterally Gastrointestinal: Yes: Normal Bowel Sounds, Soft Musculoskeletal: Yes: WNL Extremities: Yes: Other Wound/Incision: Yes: Dressing Dry and Intact Psychiatric: Yes: Alert, Oriented Labs: CBC, BMP 01/03/19 06:50 01/03/19 06:50 INR, PTT INR 0.97 (0.83-1.09) 12/30/18 07:10 Assessment/Plan 58 year old female with a past medical history of HTN, HLD, bilateral chronic leg wounds secondary to venous ulcers admitted for intractable pain secondary to chronic venous stasis ulcers. Chrnoic venous stasis dermatitis ulcers HTN HLD Anemia CKD post skin grafting plan abx wound care rest as per the team
[2019-01-03] MEDS: LISINOPRIL 5 MG TABLET (FP) PO SCH (11:47)
[2019-01-03] MEDS ORDERED: DOCUSATE SODIUM 100 MG CAPSULE (FP) PO PRN (11:53)
--- NOTE | 2019-01-03 12:07 | PN ---
Teaching Attending Note Name of Resident: Tacos Medrano ATTENDING PHYSICIAN STATEMENT I saw and evaluated the patient. I reviewed the resident's note and discussed the case with the resident. I agree with the resident's findings and plan as documented. SUBJECTIVE:pain is controlled. +constipation. denies Cp, SOB, fever,chills, N/V/ D OBJECTIVE: Last Vital Signs Temp Pulse Resp BP Pulse Ox 98.3 F 89 18 91/58 L 96 01/03/19 09:00 01/03/19 11:30 01/03/19 11:30 01/03/19 11:30 01/03/19 09:00 General NAD Lungs CTA B/L no wheezing/rales/rhonchi Extremities dressing in place. wound vac x2 ASSESSMENT AND PLAN: 58yo F with PMH HTN, dyslipidemia, CKD, DM and B/L LE non healing ulcers came to the ER due to intractable pain of the legs and scheduled surgery for her legs was moved up to today 1. Non healing B/L LE ulcers with intractable pain-s/p B/L LE skin graft 12/30. wound vac x [address]. +pseudomonas. on zosyn day 5. Dilaudid FLOAT OPERATOR pump for pain. further recommendations per plastics and ID. plan to assess today to see if procedures are necessary. WBAT. 2. Constipation- start miralax and colace 3. DM- uncontrolled. cont home levemir. can titrate up to optimize control 4. CKD- at baseline 5. HTN-cont home medications 6. DVT ppx- hep sq 7. spoke with daughter present at bedside. all questions answered. verbalized understanding and agreement
[2019-01-03] MEDS: HYDROmorphone *PCA* 10MG/50ML DISP.SYRIN PCA SCH ×2 (12:57→19:18)
[2019-01-03] MEDS: SENNOSIDES 8.6MG TABLET (FP) PO SCH ×2 (13:06→21:40)
--- NOTE | 2019-01-03 16:25 | PN ---
Physical Exam: SUBJECTIVE: 58 y/o F w PMH HTN, dyslipidemia, CKD, DM and BL LE non healing ulcers whom came to the ED 2/2 intractable leg pain and admitted for surgical grafting. Pt POD 4 today. She c/o of pain in her legs only on movement. She is breathing well, has an incentive spirometer at bedside, and instructed on appropriate use. Constipated but passing flatus. She denies NVFCD. OBJECTIVE: Vital Signs Period Temp Pulse Resp BP Sys/Dodson Pulse Ox Last 24 Hr 97.9 F-100.2 F 89-117 17-19 90-111/58-72 96-97 GENERAL: AOx3, in no acute distress. Korean speaking only. HEAD: NCAT EYES: NEDRA, EOMI, conjunctiva clear. EARS, NOSE, THROAT: Ears normal, nares patent, oropharynx clear without exudates. Moist mucous membranes. NECK: Normal range of motion, supple without lymphadenopathy, JVD, or masses. LUNGS: CTAB . No wheezes, and no crackles. No accessory muscle use. HEART: RRR s1 s2 no rubs, gallops, murmurs ABDOMEN: Soft, BS present in all 4 quadrants, non-distended, no JVD, MUSCULOSKELETAL: No bony deformities or tenderness. No CVA tenderness. UPPER EXTREMITIES: 2+ pulses, warm, well-perfused. No cyanosis. No clubbing. No peripheral edema. LOWER EXTREMITIES: BL circumferential bandages, on distal LE and proximal LE ( site of autograft) covered by bandages. [address] pulses not appreciable, warm, No peripheral edema. NEUROLOGICAL: Cranial nerves II-XII intact. Normal speech. Gait not appreciated. PSYCHIATRIC: Cooperative. Good eye contact. Appropriate mood and affect. SKIN: Warm, dry, normal turgor, no rashes or lesions noted, normal capillary refill. Laboratory Results - last 24 hr 01/02/19 01/02/19 01/03/19 16:38 21:48 04:35 WBC RBC Hgb Hct MCV MCH MCHC RDW Plt Count MPV Absolute Neuts (auto) Neutrophils % Lymphocytes % Monocytes % Eosinophils % Basophils % Nucleated RBC % Sodium Potassium Chloride Carbon Dioxide Anion Gap BUN Creatinine Est GFR (CKD-EPI)AfAm Est GFR (CKD-EPI)NonAf POC Glucometer 112 174 151 Random Glucose Calcium Phosphorus Magnesium Total Bilirubin AST ALT Alkaline Phosphatase Total Protein Albumin 01/03/19 01/03/19 01/03/19 06:50 06:50 11:39 WBC 12.5 H RBC 3.39 L Hgb 8.6 L Hct 27.6 L MCV 81.3 MCH 25.2 L MCHC 31.0 L RDW 19.8 H Plt Count 275 MPV 8.8 Absolute Neuts (auto) 8.3 H Neutrophils % 66.5 Lymphocytes % 23.4 Monocytes % 8.1 Eosinophils % 1.6 Basophils % 0.4 Nucleated RBC % 0 Sodium 136 Potassium 4.2 Chloride 103 Carbon Dioxide 24 Anion Gap 9 BUN 40.3 H Creatinine 1.8 H Est GFR (CKD-EPI)AfAm 35.34 Est GFR (CKD-EPI)NonAf 30.49 POC Glucometer 169 Random Glucose 120 H Calcium 8.5 Phosphorus 3.3 Magnesium 2.0 Total Bilirubin 0.4 AST 10 L ALT 18 Alkaline Phosphatase 51 Total Protein 5.5 L Albumin 2.1 L Active Medications Acetaminophen (Tylenol -) 650 mg PO Q6H PRN PRN Reason: PAIN OR FEVER Last Admin: 01/03/19 20:00 Dose: 650 mg Aspirin (Asa -) 81 mg PO DAILY [facility] Last Admin: 01/03/19 09:40 Dose: 81 mg Atorvastatin Calcium (Lipitor -) 40 mg PO HS [facility] Last Admin: 01/03/19 21:40 Dose: 40 mg Bacitracin (Bacitracin -) 1 applic TP DAILY [facility] Docusate Sodium (Colace -) 100 mg PO BID PRN PRN Reason: CONSTIPATION Last Admin: 01/03/19 13:06 Dose: 100 mg Ferrous Sulfate (Feosol -) 325 mg PO BID [facility] Last Admin: 01/03/19 21:40 Dose: 325 mg Gabapentin (Neurontin -) 100 mg PO DAILY [facility] Last Admin: 01/03/19 09:41 Dose: 100 mg Heparin Sodium (Porcine) (Heparin -) 5,000 unit SQ BID [facility] Last Admin: 01/03/19 21:40 Dose: 5,000 unit Hydromorphone HCl (Hydromorphone 10 Mg/50 Ml-Ns) 10 mg CERTIFIED DENTAL ASSISTANT CERTIFIED DENTAL ASSISTANT [facility]; Protocol Stop: 01/06/19 17:11 Last Admin: 01/03/19 19:18 Dose: Not Given Piperacillin Sod/Tazobactam (Sod 2.25 gm/ Dextrose) 50 mls @ 100 mls/hr IVPB Q6H-IV [facility]; Protocol Last Admin: 01/03/19 21:40 Dose: 100 mls/hr Insulin Aspart (Novolog Vial Sliding Scale -) 1 vial SQ ACHS [facility]; Protocol Last Admin: 01/03/19 21:40 Dose: Not Given Lisinopril (Prinivil) 2.5 mg PO DAILY [facility] Last Admin: 01/03/19 11:47 Dose: Not Given Ondansetron HCl (Zofran Injection) 4 mg IVPUSH Q6H PRN PRN Reason: NAUSEA Last Admin: 01/03/19 12:29 Dose: 4 mg Ondansetron HCl (Zofran Injection) 4 mg IVPUSH Q6H PRN PRN Reason: NAUSEA AND/OR VOMITING Senna (Senna -) 1 tab PO BID [facility] Last Admin: 01/03/19 21:40 Dose: 1 tab ASSESSMENT/PLAN: 58 y/o F w PMH HTN, HLD, CKD, DM and BL LE non-healing ulcers whom came to the ED 2/2 intractable leg pain. Pt post op from grafting and tolerated surgery well , now POD 3. # Non-healing BL LE ulcers w intractable pain - B/L LE skin graft 5 Dec 2018 - Pain relief w dilauded PCI pump. - Bowers removed - WBAT per plastic surgeon - Wound vac in place BL LE - ID consulted (Dr. Cevallos) - Cont. Vanco and zosyn day 4 - Cx (+) for pseudomonas - Plastic sx (Dr. Quintana) # Constipation - Miralax and colace # DM - ISS # CKD - At baseline # HTN - Cont. home regimen # Hyperkalemia - Resolved # F/E/N - LR - Cont. to monitor - Diabetic/low na diet # DVT prophylaxis - Heparin Tacos Medrano MD Visit type - Emergency Visit Emergency Visit: No - New Patient This patient is new to me today: No - Critical Care Critical Care patient: No - Discharge Referral Referred to [facility] Med P.C.: No ATTENDING PHYSICIAN STATEMENT I saw and evaluated the patient. I reviewed the resident's note and discussed the case with the resident. I agree with the resident's findings and plan as documented. SUBJECTIVE: OBJECTIVE: ASSESSMENT AND PLAN:
[2019-01-03] MEDS: ATORVASTATIN CA 40 MG TABLET (FP) PO SCH (21:40)
[2019-01-04] MEDS ORDERED: PIPERACILLIN/TAZOBACTAM 2.25 GM VIAL IVPB ONE ×4 (02:07→21:06)
[2019-01-04] MEDS ORDERED: DEXTROSE 5%-WATER - 50 ML IVPB ONE ×4 (02:08→21:06)
[2019-01-04] MEDS: PIPERACILLIN/TAZOB 2.25 GM 2.25 GM in DEXTROSE 5%-WATER - 50 ML IVPB SCH ×4 (02:17→21:20)
[2019-01-04] MEDS: HYDROmorphone *PCA* 10MG/50ML DISP.SYRIN PCA SCH ×2 (04:11→16:28)
[2019-01-04] MEDS: INSULIN SLIDING SCALE (NOVOLOG) 1 VIAL SQ SCH ×4 (06:04→21:25)
[2019-01-04 07:45] LABS: BASO % 0.4 % (0-2.0); EOS % 2.2 % (0-4.5); HEMATOCRIT 27.4 % (32.4-45.2); HEMOGLOBIN 8.8 GM/dL (10.7-15.3); LYMPH % 22.7 % (8-40); MCHC 31.9 g/dl (32.0-36.0); MEAN CELL VOLUME 81.4 fl (80-96); MEAN PLT VOLUME 8.7 fl (7.5-11.1); MONO % 10.3 % (3.8-10.2); NEUT % 64.4 % (42.8-82.8); PLATELET COUNT 310 K/MM3 (134-434); RBC 3.37 M/mm3 (3.60-5.2); RDW 19.6 % (11.6-15.6); WHITE BLOOD COUNT 9.6 K/mm3 (4.0-10.0)
[2019-01-04 08:01] LABS: ALBUMIN 2.1 g/dl (3.4-5.0); BILIRUBIN,TOTAL 1.1 mg/dL (0.2-1); CALCIUM 8.8 mg/dL (8.5-10.1); CREATININE 1.7 mg/dL (0.55-1.3); MAGNESIUM 1.9 mg/dL (1.8-2.4); POTASSIUM 4.2 mmol/L (3.5-5.1); TOT PROT 5.8 g/dl (6.4-8.2)
--- NOTE | 2019-01-04 08:37 | PN ---
Progress Note (short form) - Note Progress Note: Anesthesia/pain Pt seen and examined S:Alert and awake, still pain O: Vital Signs Temperature 98.8 F 01/04/19 05:59 Pulse Rate 113 H 01/04/19 08:11 Respiratory Rate 18 01/04/19 08:11 Blood Pressure 122/71 01/04/19 08:11 O2 Sat by Pulse Oximetry (%) 98 01/04/19 08:11 CBC, BMP 01/04/19 06:45 A/P: Current Active Problems Bilateral leg ulcer (Acute) Intractable neuropathic pain of foot (Acute) s/p LE skin graft Doing well post op Continue current care Gene Garner MD
[2019-01-04] MEDS: ASPIRIN 81 MG CHEWABLE TABLETS PO SCH (09:15)
[2019-01-04] MEDS: SENNOSIDES 8.6MG TABLET (FP) PO SCH ×2 (09:15→21:20)
[2019-01-04] MEDS: LISINOPRIL 5 MG TABLET (FP) PO SCH (09:16)
[2019-01-04] MEDS: GABAPENTIN 100 MG CAPSULE (FP) PO SCH (09:16)
[2019-01-04] MEDS: FERROUS SO4 325 MG TABLET (FP) PO SCH ×2 (09:16→21:20)
[2019-01-04] MEDS: POLYETHYLENE GLYCOL 3350 119 GM BTL PO SCH ×2 (09:17→21:20)
[2019-01-04] MEDS: HEPARIN NA (PORCINE) 5,000 UNITS/ML 1ML VIAL SQ SCH ×2 (09:17→21:20)
--- NOTE | 2019-01-04 12:58 | PN ---
Teaching Attending Note Name of Resident: Tacos Medrano ATTENDING PHYSICIAN STATEMENT I saw and evaluated the patient. I reviewed the resident's note and discussed the case with the resident. I agree with the resident's findings and plan as documented. SUBJECTIVE: Reports some improvement in LE pain, still requiring MACHINERY REPAIR MAINTENANCE SUPERVISOR. OBJECTIVE: Low grade fever, T 99.9, Tmax 100.2. Last Vital Signs Temp Pulse Resp BP Pulse Ox 99.9 F H 113 H 18 122/71 98 01/04/19 11:00 01/04/19 11:00 01/04/19 11:00 01/04/19 11:00 01/04/19 09:00 HEENT- Atramatic, Normocephalic. Heart - S1, S2, Tachy Lungs - clear to auscultation Abdomen - Soft, non-tender. Bowel Sounds normal. Extremities - Bilateral LE dressings clean and dry. Neurovascularly intact. Wound Vac LLE. Laboratory Results - last 24 hr 01/03/19 01/03/19 01/04/19 17:50 21:39 05:27 WBC RBC Hgb Hct MCV MCH MCHC RDW Plt Count MPV Absolute Neuts (auto) Neutrophils % Lymphocytes % Monocytes % Eosinophils % Basophils % Nucleated RBC % Sodium Potassium Chloride Carbon Dioxide Anion Gap BUN Creatinine Est GFR (CKD-EPI)AfAm Est GFR (CKD-EPI)NonAf POC Glucometer 98 152 170 Random Glucose Calcium Phosphorus Magnesium Total Bilirubin AST ALT Alkaline Phosphatase Total Protein Albumin 01/04/19 01/04/19 01/04/19 06:45 06:45 11:37 WBC 9.6 RBC 3.37 L Hgb 8.8 L Hct 27.4 L MCV 81.4 MCH 26.0 MCHC 31.9 L RDW 19.6 H Plt Count 310 MPV 8.7 Absolute Neuts (auto) 6.2 Neutrophils % 64.4 Lymphocytes % 22.7 Monocytes % 10.3 H Eosinophils % 2.2 Basophils % 0.4 Nucleated RBC % 0 Sodium 138 Potassium 4.2 Chloride 101 Carbon Dioxide 25 Anion Gap 11 BUN 35.0 H Creatinine 1.7 H Est GFR (CKD-EPI)AfAm 37.86 Est GFR (CKD-EPI)NonAf 32.67 POC Glucometer 158 Random Glucose 156 H Calcium 8.8 Phosphorus 3.0 Magnesium 1.9 Total Bilirubin 1.1 H AST 13 L ALT 18 Alkaline Phosphatase 53 Total Protein 5.8 L Albumin 2.1 L Current Medications Generic Name Dose Route Start Last Admin Trade Name Freq PRN Reason Stop Dose Admin Acetaminophen 650 mg 12/29/18 21:49 01/03/19 20:00 Tylenol - PO 650 mg Q6H PRN Administration PAIN OR FEVER Aspirin 81 mg 12/31/18 10:00 01/04/19 09:15 Asa - PO 81 mg DAILY [facility] Administration Atorvastatin Calcium 40 mg 12/30/18 22:00 01/03/19 21:40 Lipitor - PO 40 mg HS [facility] Administration Bacitracin 1 applic 01/04/19 10:00 Bacitracin - TP DAILY [facility] Docusate Sodium 100 mg 01/03/19 11:53 01/03/19 13:06 Colace - PO 100 mg BID PRN Administration CONSTIPATION Ferrous Sulfate 325 mg 12/30/18 22:00 01/04/19 09:16 Feosol - PO 325 mg BID [facility] Administration Gabapentin 100 mg 12/31/18 10:00 01/04/19 09:16 Neurontin - PO 100 mg DAILY [facility] Administration Heparin Sodium (Porcine) 5,000 unit 12/31/18 10:00 01/04/19 09:17 Heparin - SQ 5,000 unit BID [facility] Administration Hydromorphone HCl 10 mg 12/30/18 17:15 01/04/19 04:11 Hydromorphone 10 Mg/50 Ml-Ns MACHINERY REPAIR MAINTENANCE SUPERVISOR 01/06/19 17:11 10 mg MACHINERY REPAIR MAINTENANCE SUPERVISOR [facility] Administration Protocol Piperacillin Sod/Tazobactam 50 mls @ 100 mls/hr 12/30/18 11:30 01/04/19 09:17 Sod 2.25 gm/ Dextrose IVPB 100 mls/hr Q6H-IV [facility] Administration Protocol Insulin Aspart 1 vial 12/30/18 22:00 01/04/19 12:21 Novolog Vial Sliding Scale - SQ Not Given ACHS [facility] Protocol Lisinopril 2.5 mg 12/31/18 10:00 01/04/19 09:16 Prinivil PO 2.5 mg DAILY [facility] Administration Ondansetron HCl 4 mg 12/29/18 21:49 01/03/19 12:29 Zofran Injection IVPUSH 4 mg Q6H PRN Administration NAUSEA Ondansetron HCl 4 mg 12/30/18 17:09 Zofran Injection IVPUSH Q6H PRN NAUSEA AND/OR VOMITING Polyethylene Glycol 17 gm 01/04/19 10:00 01/04/19 09:17 Miralax (For Daily Use) - PO 17 gm BID [facility] Administration Senna 1 tab 01/03/19 12:00 01/04/19 09:15 Senna - PO 1 tab BID [facility] Administration Home Medications Medication Instructions Recorded Atorvastatin Ca [Lipitor] 40 mg PO HS 12/30/18 Insulin Glargine,Hum.rec.anlog 10 units SQ HS 12/30/18 [Basaglar Kwikpen U-100] Acetaminophen 650 mg PO Q6H PRN 12/31/18 Aspirin 81 mg PO DAILY 12/31/18 Clobetasol Propionate/Emoll 1 applic BID 12/31/18 [Clobetasol Emollient 0.05% Crm] Ferrous Sulfate 325 mg PO BID 12/31/18 Gabapentin 100 mg PO DAILY 12/31/18 Lisinopril [Zestril] 2.5 mg PO DAILY 12/31/18 ASSESSMENT AND PLAN: 58 year old female with history of HTN, HLD, CKD 3, DM 2, chronic venous insufficiency, and Chronic B/L LE non healing ulcers s/p prior skin graft, s/p multiple debridements, s/p hyperbaric oxygen therapy, admitted with intractable pain due to non-healing ulcers. 1. Non healing B/L LE Ulcers with intractable pain POD 5 s/p skin graft 9/[address] Lilian Smyth cx positve for Pseudomonas Day 6 IV Zosyn - having low grade teperatures up to 100.2. Leukocytosis reslved. Further management as per ID and Plastic Sx. Still on Dilaudid MACHINERY REPAIR MAINTENANCE SUPERVISOR. Continue Gabapenbtin for neuropathic pain. 2. Constipation - continue Colace, Senna, and Miralax. Will add Bisacodyl suppository if required. 3, DM 2 - Uncontrolled with Peripheral Neuropathy. Continue Levemir and sliding scale Novolog. 4. CKD 3 - Stable. Creat at baseline. 5. HTN - Continue Lisinopril. 6. HLD - Continue Statin. 7. Normocytic Anemia - likley multifactorial (including CKD and chronic disease ) - will send Anemia work-up. On FeSO4 supplementation. Unclear whether she has had out-patient [facility] work-up. DVT px - Heparin SQ
--- NOTE | 2019-01-04 13:28 | PN ---
Progress Note, Physician History of Present Illness: stable low grade fever - Current Medication List Current Medications: Active Medications Acetaminophen (Tylenol -) 650 mg PO Q6H PRN PRN Reason: PAIN OR FEVER Last Admin: 01/03/19 20:00 Dose: 650 mg Aspirin (Asa -) 81 mg PO DAILY [facility] Last Admin: 01/04/19 09:15 Dose: 81 mg Atorvastatin Calcium (Lipitor -) 40 mg PO HS [facility] Last Admin: 01/03/19 21:40 Dose: 40 mg Bacitracin (Bacitracin -) 1 applic TP DAILY [facility] Docusate Sodium (Colace -) 100 mg PO BID PRN PRN Reason: CONSTIPATION Last Admin: 01/03/19 13:06 Dose: 100 mg Ferrous Sulfate (Feosol -) 325 mg PO BID [facility] Last Admin: 01/04/19 09:16 Dose: 325 mg Gabapentin (Neurontin -) 100 mg PO DAILY [facility] Last Admin: 01/04/19 09:16 Dose: 100 mg Heparin Sodium (Porcine) (Heparin -) 5,000 unit SQ BID [facility] Last Admin: 01/04/19 09:17 Dose: 5,000 unit Hydromorphone HCl (Hydromorphone 10 Mg/50 Ml-Ns) 10 mg SOUND EFFECTS SUPERVISOR SOUND EFFECTS SUPERVISOR [facility]; Protocol Stop: 01/06/19 17:11 Last Admin: 01/04/19 04:11 Dose: 10 mg Piperacillin Sod/Tazobactam (Sod 2.25 gm/ Dextrose) 50 mls @ 100 mls/hr IVPB Q6H-IV [facility]; Protocol Last Admin: 01/04/19 09:17 Dose: 100 mls/hr Insulin Aspart (Novolog Vial Sliding Scale -) 1 vial SQ ACHS [facility]; Protocol Last Admin: 01/04/19 12:21 Dose: Not Given Lisinopril (Prinivil) 2.5 mg PO DAILY [facility] Last Admin: 01/04/19 09:16 Dose: 2.5 mg Ondansetron HCl (Zofran Injection) 4 mg IVPUSH Q6H PRN PRN Reason: NAUSEA Last Admin: 01/03/19 12:29 Dose: 4 mg Ondansetron HCl (Zofran Injection) 4 mg IVPUSH Q6H PRN PRN Reason: NAUSEA AND/OR VOMITING Polyethylene Glycol (Miralax (For Daily Use) -) 17 gm PO BID [facility] Last Admin: 01/04/19 09:17 Dose: 17 gm Senna (Senna -) 1 tab PO BID [facility] Last Admin: 01/04/19 09:15 Dose: 1 tab - Objective Vital Signs: Vital Signs Temperature 99.9 F H 01/04/19 11:00 Pulse Rate 113 H 01/04/19 11:00 Respiratory Rate 18 01/04/19 11:00 Blood Pressure 122/71 01/04/19 11:00 O2 Sat by Pulse Oximetry (%) 98 01/04/19 09:00 Constitutional: Yes: Calm Cardiovascular: Yes: S1, S2 Respiratory: Yes: Regular, CTA Bilaterally Gastrointestinal: Yes: Normal Bowel Sounds, Soft Musculoskeletal: Yes: WNL Extremities: Yes: Other Wound/Incision: Yes: Dressing Dry and Intact, Other (wound vac) Neurological: Yes: Alert, Oriented Psychiatric: Yes: Alert, Oriented Labs: CBC, BMP 01/04/19 06:45 01/04/19 06:45 INR, PTT INR 0.97 (0.83-1.09) 12/30/18 07:10 Assessment/Plan 58 year old female with a past medical history of HTN, HLD, bilateral chronic leg wounds secondary to venous ulcers admitted for intractable pain secondary to chronic venous stasis ulcers. Chrnoic venous stasis dermatitis ulcers HTN HLD Anemia CKD post skin grafting plan abx wound care rest as per the team monitor fevers
--- NOTE | 2019-01-04 15:48 | PN ---
Physical Exam: SUBJECTIVE: 58 y/o F w PMH HTN, dyslipidemia, CKD, DM and BL LE non healing ulcers whom came to the ED 2/2 intractable leg pain and admitted for surgical grafting. Pt POD 5 today. She c/o of pain in her legs only on movement. Dressing changed overnight by Dr. Quintana. Report of T 100.2 overnight. She is breathing well, has an incentive spirometer at bedside, and instructed on appropriate use. Constipated but passing flatus. She denies NVFCD. OBJECTIVE: Vital Signs Period Temp Pulse Resp BP Sys/Dodson Pulse Ox Last 24 Hr 98.3 F-99.9 F 92-119 18-18 104-126/58-94 94-98 GENERAL: AOx3, in no acute distress. Zimbabwean speaking only. HEAD: NCAT EYES: NEDRA, EOMI, conjunctiva clear. EARS, NOSE, THROAT: Ears normal, nares patent, oropharynx clear without exudates. Moist mucous membranes. NECK: Normal range of motion, supple without lymphadenopathy, JVD, or masses. LUNGS: CTAB . No wheezes, and no crackles. No accessory muscle use. HEART: RRR s1 s2 no rubs, gallops, murmurs ABDOMEN: Soft, BS present in all 4 quadrants, non-distended, no JVD, MUSCULOSKELETAL: No bony deformities or tenderness. No CVA tenderness. UPPER EXTREMITIES: 2+ pulses, warm, well-perfused. No cyanosis. No clubbing. No peripheral edema. LOWER EXTREMITIES: BL circumferential bandages, on distal LE and proximal LE ( site of autograft) covered by bandages. [address] on LEFT LE. pulses not appreciable, warm, No peripheral edema. NEUROLOGICAL: Cranial nerves II-XII intact. Normal speech. Gait not appreciated. PSYCHIATRIC: Cooperative. Good eye contact. Appropriate mood and affect. SKIN: Warm, dry, normal turgor, no rashes or lesions noted, normal capillary refill. Laboratory Results - last 24 hr 01/03/19 01/03/19 01/04/19 17:50 21:39 05:27 WBC RBC Hgb Hct MCV MCH MCHC RDW Plt Count MPV Absolute Neuts (auto) Neutrophils % Lymphocytes % Monocytes % Eosinophils % Basophils % Nucleated RBC % Sodium Potassium Chloride Carbon Dioxide Anion Gap BUN Creatinine Est GFR (CKD-EPI)AfAm Est GFR (CKD-EPI)NonAf POC Glucometer 98 152 170 Random Glucose Calcium Phosphorus Magnesium Total Bilirubin AST ALT Alkaline Phosphatase Total Protein Albumin 01/04/19 01/04/19 01/04/19 06:45 06:45 11:37 WBC 9.6 RBC 3.37 L Hgb 8.8 L Hct 27.4 L MCV 81.4 MCH 26.0 MCHC 31.9 L RDW 19.6 H Plt Count 310 MPV 8.7 Absolute Neuts (auto) 6.2 Neutrophils % 64.4 Lymphocytes % 22.7 Monocytes % 10.3 H Eosinophils % 2.2 Basophils % 0.4 Nucleated RBC % 0 Sodium 138 Potassium 4.2 Chloride 101 Carbon Dioxide 25 Anion Gap 11 BUN 35.0 H Creatinine 1.7 H Est GFR (CKD-EPI)AfAm 37.86 Est GFR (CKD-EPI)NonAf 32.67 POC Glucometer 158 Random Glucose 156 H Calcium 8.8 Phosphorus 3.0 Magnesium 1.9 Total Bilirubin 1.1 H AST 13 L ALT 18 Alkaline Phosphatase 53 Total Protein 5.8 L Albumin 2.1 L Active Medications Acetaminophen (Tylenol -) 650 mg PO Q6H PRN PRN Reason: PAIN OR FEVER Last Admin: 01/04/19 20:41 Dose: 650 mg Aspirin (Asa -) 81 mg PO DAILY [facility] Last Admin: 01/04/19 09:15 Dose: 81 mg Atorvastatin Calcium (Lipitor -) 40 mg PO HS [facility] Last Admin: 01/04/19 21:20 Dose: 40 mg Bacitracin (Bacitracin -) 1 applic TP DAILY [facility] Last Admin: 01/04/19 18:00 Dose: Not Given Docusate Sodium (Colace -) 100 mg PO BID PRN PRN Reason: CONSTIPATION Last Admin: 01/03/19 13:06 Dose: 100 mg Ferrous Sulfate (Feosol -) 325 mg PO BID [facility] Last Admin: 01/04/19 21:20 Dose: 325 mg Gabapentin (Neurontin -) 100 mg PO DAILY [facility] Last Admin: 01/04/19 09:16 Dose: 100 mg Heparin Sodium (Porcine) (Heparin -) 5,000 unit SQ BID [facility] Last Admin: 01/04/19 21:20 Dose: 5,000 unit Hydromorphone HCl (Hydromorphone 10 Mg/50 Ml-Ns) 10 mg SEWER INSPECTOR SEWER INSPECTOR [facility]; Protocol Stop: 01/06/19 17:11 Last Admin: 01/04/19 16:28 Dose: 10 mg Piperacillin Sod/Tazobactam (Sod 2.25 gm/ Dextrose) 50 mls @ 100 mls/hr IVPB Q6H-IV [facility]; Protocol Last Admin: 01/04/19 21:20 Dose: 100 mls/hr Insulin Aspart (Novolog Vial Sliding Scale -) 1 vial SQ ACHS [facility]; Protocol Last Admin: 01/04/19 21:25 Dose: Not Given Lisinopril (Prinivil) 2.5 mg PO DAILY [facility] Last Admin: 01/04/19 09:16 Dose: 2.5 mg Ondansetron HCl (Zofran Injection) 4 mg IVPUSH Q6H PRN PRN Reason: NAUSEA Last Admin: 01/03/19 12:29 Dose: 4 mg Ondansetron HCl (Zofran Injection) 4 mg IVPUSH Q6H PRN PRN Reason: NAUSEA AND/OR VOMITING Polyethylene Glycol (Miralax (For Daily Use) -) 17 gm PO BID [facility] Last Admin: 01/04/19 21:20 Dose: 17 gm Senna (Senna -) 1 tab PO BID [facility] Last Admin: 01/04/19 21:20 Dose: 1 tab ASSESSMENT/PLAN: 58 y/o F w PMH HTN, HLD, CKD, DM and BL LE non-healing ulcers whom came to the ED 2/2 intractable leg pain. Pt post op from grafting and tolerated surgery well , now POD 5. # Non-healing BL LE ulcers w intractable pain - B/L LE skin graft 30 Dec 2018 - Cx (+) for pseudomonas - Zosyn day 6 - 100.2 temp over night w no white count. Will follow. - Pain relief w dilauded PCI pump. - WBAT per plastic surgeon - Wound vac in place LLE - ID consulted (Dr. Cevallos) - Plastic sx (Dr. Quintana) # Constipation - Senna and colace - Miralax added - Add bisacodyl suppository if required # DM - ISS - Cont. gabapenbtin for neuropathic pain # CKD - At baseline # HTN - Cont. home regimen # Hyperkalemia - Resolved # F/E/N - LR - Cont. to monitor - Diabetic/low na diet # DVT prophylaxis - Heparin Tacos Medrano MD Visit type - Emergency Visit Emergency Visit: No - New Patient This patient is new to me today: No - Critical Care Critical Care patient: No - Discharge Referral Referred to [facility] Med P.C.: No ATTENDING PHYSICIAN STATEMENT I saw and evaluated the patient. I reviewed the resident's note and discussed the case with the resident. I agree with the resident's findings and plan as documented. SUBJECTIVE: OBJECTIVE: ASSESSMENT AND PLAN:
[2019-01-04] MEDS: BACITRACIN 15 GM TUBE TOPICAL OINTMENT TP SCH (18:00)
[2019-01-04] MEDS: ACETAMINOPHEN 325 MG TABLET (FP) PO PRN (20:41)
[2019-01-04] MEDS: ATORVASTATIN CA 40 MG TABLET (FP) PO SCH (21:20)
[2019-01-05] MEDS ORDERED: PIPERACILLIN/TAZOBACTAM 2.25 GM VIAL IVPB ONE ×4 (03:16→21:45)
[2019-01-05] MEDS ORDERED: DEXTROSE 5%-WATER - 50 ML IVPB ONE ×4 (03:16→21:45)
[2019-01-05] MEDS: PIPERACILLIN/TAZOB 2.25 GM 2.25 GM in DEXTROSE 5%-WATER - 50 ML IVPB SCH ×4 (03:19→23:08)
[2019-01-05] MEDS: INSULIN SLIDING SCALE (NOVOLOG) 1 VIAL SQ SCH ×4 (06:02→23:13)
[2019-01-05 06:12] LABS: BASO % 0.4 % (0-2.0); EOS % 2.4 % (0-4.5); HEMATOCRIT 28.3 % (32.4-45.2); HEMOGLOBIN 8.9 GM/dL (10.7-15.3); LYMPH % 26.2 % (8-40); MCH 25.3 pg (25.7-33.7); MCHC 31.3 g/dl (32.0-36.0); MEAN CELL VOLUME 80.9 fl (80-96); MEAN PLT VOLUME 8.4 fl (7.5-11.1); PLATELET COUNT 333 K/MM3 (134-434); RDW 19.6 % (11.6-15.6); WHITE BLOOD COUNT 9.5 K/mm3 (4.0-10.0)
[2019-01-05 06:40] LABS: ALBUMIN 2.1 g/dl (3.4-5.0); BILIRUBIN,TOTAL 0.4 mg/dL (0.2-1); BLOOD UREA NITROGEN 33.4 mg/dL (7-18); CALCIUM 8.9 mg/dL (8.5-10.1); CREATININE 1.8 mg/dL (0.55-1.3); MAGNESIUM 1.9 mg/dL (1.8-2.4); PHOSPHOROUS 2.7 mg/dL (2.5-4.9)
[2019-01-05 06:41] LABS: POTASSIUM 4.3 mmol/L (3.5-5.1)
[2019-01-05] MEDS: HYDROmorphone *PCA* 10MG/50ML DISP.SYRIN PCA SCH ×3 (08:48→22:29)
--- NOTE | 2019-01-05 09:19 | PN ---
HC Provider Note Provider Note: Anesthesia INSTRUMENT AND ELECTRICAL TECHNICIAN rounds Pt awake alert - reports continued use of INSTRUMENT AND ELECTRICAL TECHNICIAN for neuropathic foot pain Pt denies n/v, no puritis or urinary retention VSS Continue INSTRUMENT AND ELECTRICAL TECHNICIAN Ashley Mcdaniel.
[2019-01-05] MEDS: GABAPENTIN 100 MG CAPSULE (FP) PO SCH (09:34)
[2019-01-05] MEDS: ASPIRIN 81 MG CHEWABLE TABLETS PO SCH (09:34)
[2019-01-05] MEDS: LISINOPRIL 5 MG TABLET (FP) PO SCH (09:35)
[2019-01-05] MEDS: HEPARIN NA (PORCINE) 5,000 UNITS/ML 1ML VIAL SQ SCH ×2 (09:35→23:09)
[2019-01-05] MEDS: FERROUS SO4 325 MG TABLET (FP) PO SCH ×2 (09:36→23:09)
[2019-01-05] MEDS: SENNOSIDES 8.6MG TABLET (FP) PO SCH ×2 (09:36→23:09)
[2019-01-05] MEDS: BACITRACIN 15 GM TUBE TOPICAL OINTMENT TP SCH (09:36)
[2019-01-05] MEDS: POLYETHYLENE GLYCOL 3350 119 GM BTL PO SCH ×2 (09:37→23:09)
--- NOTE | 2019-01-05 10:26 | PATH ---
Surgical Pathology Report Patient Name: SERJIO GONSALVES [facility]. Rec. #: [id number] /Age/Gender: 1960 (Age: 58) / F Account: [id number] Location: 4 SO PEDS/ADOL Taken: 12/30/2018 Received: 12/31/2018 Reported: 01/05/2019 Physicians: Flo Quintana M.D. Specimen(s) Received A: DEBRIDED TISSUE FROMLEFT LOWE EXTREMITY ULCER B: SKIN BX OF RIGHT LOWER EXTREMITY C: DEBRIDED TISSUE FROM RIGHT LOWER EXTREMITY ULCER D: TIBIAL BONE FROM RIGHT LOWER EXTREMITY Clinical History 5 years chronic wounds spread/increased, very painful. r/o inflammatory skin, Mireya, pyoderma gangrenosum Final Diagnosis A. DEBRIDED TISSUE FROM LEFT LOWER EXTREMITY ULCER, DEBRIDEMENT: FRAGMENTS OF SKIN AND FIBROUS TISSUE SHOWING ULCERATION WITH ABSCESS AND GRANULATION FORMATION, AND MARKED ACUTE INFLAMMATORY EXUDATE. B. SKIN BIOPSY OF RIGHT LOWER EXTREMITY: SEGMENT OF SKIN AND DERMIS WITH ULCERATION, ACUTE AND CHRONIC INFLAMMATION. C. DEBRIDED TISSUE FROM RIGHT LOWER EXTREMITY ULCER: SKIN AND FIBROADIPOSE TISSUE WITH ULCERATION, SEVERE ACUTE AND CHRONIC INFLAMMATION, INVOLVING DEEP DERMIS AND SUBCUTIS. D. TIBIAL BONE FROM RIGHT LOWER EXTREMITY, EXCISION: FRAGMENTS OF BONE WITH ACUTE OSTEOMYELITIS. SEPARATE GANGRENOUS NECROTIC FIBROCONNECTIVE TISSUE PRESENT. Comment: PAS stain for fungi (block A1 and C1) revealed fungal hyphae, morphologically consistent with Mireya species. Clinical correlation with microbiologic cultural study results recommended. Electronically Signed Junior Mcbride M.D. Gross Description A. Received in formalin, labeled "debrided tissue from lower extremity ulcer" are three thompson, irregular portions of soft tissue measuring 2.5 x 2.5 x 0.2 cm in aggregate. The specimens are submitted in 2 cassettes. B. Received in formalin, labeled "skin biopsy of right lower extremity" a and a portion of 1 x 1 x 0.1cm skin. The specimens are submitted in toto in one cassette after serial sectioning. C. Received in formalin, labeled "debrided tissue from right lower extremity ulcer" are 5 portions of thompson, irregular soft tissue raning from 1.5 x 0.2 x 0.1 cm to 8 x 0.6 x 0.1 cm. Present in the sections submitted 2 cassettes. D. Received in formalin, labeled "tibial bone from right lower extremity" is multiple bone tissue measuring 2 x 1.5 x 0.2 cm. aggregate. The specimens are submitted in toto in one cassette for decalcification. __ VIVI/01/03/2019 farhat/01/03/2019
--- NOTE | 2019-01-05 12:55 | PN ---
Progress Note, Physician - Current Medication List Current Medications: Active Medications Acetaminophen (Tylenol -) 650 mg PO Q6H PRN PRN Reason: PAIN OR FEVER Last Admin: 01/04/19 20:41 Dose: 650 mg Aspirin (Asa -) 81 mg PO DAILY [facility] Last Admin: 01/05/19 09:34 Dose: 81 mg Atorvastatin Calcium (Lipitor -) 40 mg PO HS [facility] Last Admin: 01/04/19 21:20 Dose: 40 mg Bacitracin (Bacitracin -) 1 applic TP DAILY [facility] Last Admin: 01/05/19 09:36 Dose: Not Given Docusate Sodium (Colace -) 100 mg PO BID PRN PRN Reason: CONSTIPATION Last Admin: 01/03/19 13:06 Dose: 100 mg Ferrous Sulfate (Feosol -) 325 mg PO BID [facility] Last Admin: 01/05/19 09:36 Dose: 325 mg Gabapentin (Neurontin -) 100 mg PO DAILY [facility] Last Admin: 01/05/19 09:34 Dose: 100 mg Heparin Sodium (Porcine) (Heparin -) 5,000 unit SQ BID [facility] Last Admin: 01/05/19 09:35 Dose: 5,000 unit Hydromorphone HCl (Hydromorphone 10 Mg/50 Ml-Ns) 10 mg DITCH CLEANER DITCH CLEANER [facility]; Protocol Stop: 01/06/19 17:11 Last Admin: 01/05/19 08:48 Dose: 10 mg Piperacillin Sod/Tazobactam (Sod 2.25 gm/ Dextrose) 50 mls @ 100 mls/hr IVPB Q6H-IV [facility]; Protocol Last Admin: 01/05/19 09:34 Dose: 100 mls/hr Insulin Aspart (Novolog Vial Sliding Scale -) 1 vial SQ ACHS [facility]; Protocol Last Admin: 01/05/19 11:39 Dose: 5 unit Lisinopril (Prinivil) 2.5 mg PO DAILY [facility] Last Admin: 01/05/19 09:35 Dose: Not Given Ondansetron HCl (Zofran Injection) 4 mg IVPUSH Q6H PRN PRN Reason: NAUSEA Last Admin: 01/03/19 12:29 Dose: 4 mg Ondansetron HCl (Zofran Injection) 4 mg IVPUSH Q6H PRN PRN Reason: NAUSEA AND/OR VOMITING Polyethylene Glycol (Miralax (For Daily Use) -) 17 gm PO BID [facility] Last Admin: 01/05/19 09:37 Dose: 17 gm Senna (Senna -) 1 tab PO BID [facility] Last Admin: 01/05/19 09:36 Dose: 1 tab - Objective Vital Signs: Vital Signs Temperature 99.6 F 01/05/19 06:00 Pulse Rate 104 H 01/05/19 10:48 Respiratory Rate 20 01/05/19 10:48 Blood Pressure 94/59 L 01/05/19 10:48 O2 Sat by Pulse Oximetry (%) 96 01/05/19 10:48 Labs: CBC, BMP 01/05/19 05:15 01/05/19 05:15 INR, PTT INR 0.97 (0.83-1.09) 12/30/18 07:10
--- NOTE | 2019-01-05 13:08 | PN ---
Physical Exam: SUBJECTIVE: 58 y/o F w PMH HTN, dyslipidemia, CKD, DM and BL LE non healing ulcers whom came to the ED 2/2 intractable leg pain and admitted for surgical grafting. Pt POD 6 today. She c/o of pain in her legs only on movement. Report of T 99.6 overnight. Pt still using MANAGER PULMONARY pump. Constipated but passing flatus. She denies NVFCD. OBJECTIVE: Vital Signs Period Temp Pulse Resp BP Sys/Dodson Pulse Ox Last 24 Hr 98.8 F-99.6 F 101-108 18-20 94-128/53-71 94-100 GENERAL: AOx3, in no acute distress. Upper Sorbian speaking only. HEAD: NCAT EYES: NEDRA, EOMI, conjunctiva clear. EARS, NOSE, THROAT: Ears normal, nares patent, oropharynx clear without exudates. Moist mucous membranes. NECK: Normal range of motion, supple without lymphadenopathy, JVD, or masses. LUNGS: CTAB . No wheezes, and no crackles. No accessory muscle use. HEART: RRR s1 s2 no rubs, gallops, murmurs ABDOMEN: Soft, BS present in all 4 quadrants, non-distended, no JVD, MUSCULOSKELETAL: No bony deformities or tenderness. No CVA tenderness. UPPER EXTREMITIES: 2+ pulses, warm, well-perfused. No cyanosis. No clubbing. No peripheral edema. LOWER EXTREMITIES: BL circumferential bandages, on distal LE and proximal LE ( site of autograft) covered by bandages. [address] on LEFT LE. Pulses not appreciable, warm, no peripheral edema. NEUROLOGICAL: Cranial nerves II-XII intact. Normal speech. Gait not appreciated. PSYCHIATRIC: Cooperative. Good eye contact. Appropriate mood and affect. SKIN: LE skin as above. Otherwise, warm, dry, normal turgor, no rashes or lesions noted, normal capillary refill. Laboratory Results - last 24 hr 01/04/19 01/04/19 01/04/19 06:45 16:54 21:19 WBC RBC Hgb Hct MCV MCH MCHC RDW Plt Count MPV Absolute Neuts (auto) Neutrophils % Lymphocytes % Monocytes % Eosinophils % Basophils % Nucleated RBC % Sodium 138 Potassium 4.2 Chloride 101 Carbon Dioxide 25 Anion Gap 11 BUN 35.0 H Creatinine 1.7 H Est GFR (CKD-EPI)AfAm 37.86 Est GFR (CKD-EPI)NonAf 32.67 POC Glucometer 152 145 Random Glucose 156 H Calcium 8.8 Phosphorus 3.0 Magnesium 1.9 Iron 18 L TIBC 224 L Iron Saturation 8 L Unsaturated IBC 206 Total Bilirubin 1.1 H AST 13 L ALT 18 Alkaline Phosphatase 53 Total Protein 5.8 L Albumin 2.1 L Vitamin B12 1115 H Serum Folate 5 01/05/19 01/05/19 01/05/19 05:15 05:15 05:15 WBC 9.5 RBC 3.50 L Hgb 8.9 L Hct 28.3 L MCV 80.9 MCH 25.3 L MCHC 31.3 L RDW 19.6 H Plt Count 333 MPV 8.4 Absolute Neuts (auto) 5.8 Neutrophils % 61.0 Lymphocytes % 26.2 Monocytes % 10.0 Eosinophils % 2.4 Basophils % 0.4 Nucleated RBC % 0 Sodium 136 Potassium 4.3 Chloride 103 Carbon Dioxide 24 Anion Gap 9 BUN 33.4 H Creatinine 1.8 H Est GFR (CKD-EPI)AfAm 35.34 Est GFR (CKD-EPI)NonAf 30.49 POC Glucometer 157 Random Glucose 154 H Calcium 8.9 Phosphorus 2.7 Magnesium 1.9 Iron Cancelled TIBC Cancelled Iron Saturation Cancelled Unsaturated IBC Cancelled Total Bilirubin 0.4 AST 15 ALT 20 Alkaline Phosphatase 59 Total Protein 6.0 L Albumin 2.1 L Vitamin B12 Serum Folate 01/05/19 11:35 WBC RBC Hgb Hct MCV MCH MCHC RDW Plt Count MPV Absolute Neuts (auto) Neutrophils % Lymphocytes % Monocytes % Eosinophils % Basophils % Nucleated RBC % Sodium Potassium Chloride Carbon Dioxide Anion Gap BUN Creatinine Est GFR (CKD-EPI)AfAm Est GFR (CKD-EPI)NonAf POC Glucometer 229 Random Glucose Calcium Phosphorus Magnesium Iron TIBC Iron Saturation Unsaturated IBC Total Bilirubin AST ALT Alkaline Phosphatase Total Protein Albumin Vitamin B12 Serum Folate Active Medications Acetaminophen (Tylenol -) 650 mg PO Q6H PRN PRN Reason: PAIN OR FEVER Last Admin: 01/05/19 20:15 Dose: 650 mg Aspirin (Asa -) 81 mg PO DAILY [facility] Last Admin: 01/05/19 09:34 Dose: 81 mg Atorvastatin Calcium (Lipitor -) 40 mg PO HS [facility] Last Admin: 01/04/19 21:20 Dose: 40 mg Bacitracin (Bacitracin -) 1 applic TP DAILY [facility] Last Admin: 01/05/19 09:36 Dose: Not Given Docusate Sodium (Colace -) 100 mg PO BID PRN PRN Reason: CONSTIPATION Last Admin: 01/03/19 13:06 Dose: 100 mg Ferrous Sulfate (Feosol -) 325 mg PO BID [facility] Last Admin: 01/05/19 09:36 Dose: 325 mg Folic Acid (Folic Acid -) 1 mg PO DAILY [facility] Last Admin: 01/05/19 18:55 Dose: 1 mg Gabapentin (Neurontin -) 100 mg PO DAILY [facility] Last Admin: 01/05/19 09:34 Dose: 100 mg Heparin Sodium (Porcine) (Heparin -) 5,000 unit SQ BID [facility] Last Admin: 01/05/19 09:35 Dose: 5,000 unit Hydromorphone HCl (Hydromorphone 10 Mg/50 Ml-Ns) 10 mg MANAGER PULMONARY MANAGER PULMONARY [facility]; Protocol Stop: 01/06/19 17:11 Last Admin: 01/05/19 22:29 Dose: 10 mg Piperacillin Sod/Tazobactam (Sod 2.25 gm/ Dextrose) 50 mls @ 100 mls/hr IVPB Q6H-IV [facility]; Protocol Last Admin: 01/05/19 16:07 Dose: 100 mls/hr Insulin Aspart (Novolog Vial Sliding Scale -) 1 vial SQ ACHS [facility]; Protocol Last Admin: 01/05/19 17:30 Dose: Not Given Lisinopril (Prinivil) 2.5 mg PO DAILY [facility] Last Admin: 01/05/19 09:35 Dose: Not Given Ondansetron HCl (Zofran Injection) 4 mg IVPUSH Q6H PRN PRN Reason: NAUSEA Last Admin: 01/03/19 12:29 Dose: 4 mg Ondansetron HCl (Zofran Injection) 4 mg IVPUSH Q6H PRN PRN Reason: NAUSEA AND/OR VOMITING Polyethylene Glycol (Miralax (For Daily Use) -) 17 gm PO BID [facility] Last Admin: 01/05/19 09:37 Dose: 17 gm Senna (Senna -) 1 tab PO BID [facility] Last Admin: 01/05/19 09:36 Dose: 1 tab ASSESSMENT/PLAN: 58 y/o F w PMH HTN, HLD, CKD, DM and BL LE non-healing ulcers whom came to the ED 2/2 intractable leg pain. Pt post op from grafting and tolerated surgery well , now POD 6. S/p hyperbaric oxygen therapy. Osteomyelitis. Still constipated; fleet enema to be provided. Still using MANAGER PULMONARY pump; will reach out to anesthesia in AM to transition to PO. Folate added. # Non-healing BL LE ulcers and osteomyelitis w intractable pain - B/L LE skin graft 5 Dec 2018 - Cx (+) for pseudomonas - Zosyn day 7 - 99.6 temp over night w no white count. Will follow. - Pain relief w dilauded PCI pump. - WBAT per plastic surgeon - Wound vac in place LLE - ID consulted (Dr. Cevallos) - Plastic sx (Dr. Quintana) # Osteomyelitis - (+) pathology report for acute osteomyelitis - ID recs appreciated - Anticipation of need central line and group home facility for abx # Constipation - Senna, colace, miralax a - Fleet enema added # DM - ISS - Cont. gabapenbtin for neuropathic pain # CKD - At baseline # HTN - Cont. home regimen # Hyperkalemia - Resolved # F/E/N - LR - Cont. to monitor - Diabetic/low na diet # DVT prophylaxis - Heparin Tacos Medrano MD Visit type - Emergency Visit Emergency Visit: No - New Patient This patient is new to me today: No - Critical Care Critical Care patient: No - Discharge Referral Referred to [facility] No ATTENDING PHYSICIAN STATEMENT I saw and evaluated the patient. I reviewed the resident's note and discussed the case with the resident. I agree with the resident's findings and plan as documented. SUBJECTIVE: OBJECTIVE: ASSESSMENT AND PLAN:
--- NOTE | 2019-01-05 14:09 | PN ---
Teaching Attending Note Name of Resident: Tacos Medrano ATTENDING PHYSICIAN STATEMENT I saw and evaluated the patient. I reviewed the resident's note and discussed the case with the resident. I agree with the resident's findings and plan as documented. 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 OBJECTIVE: Low grade fever appears to have resolved. Hemodynamically stable. Last Vital Signs Temp Pulse Resp BP Pulse Ox 97.9 F 107 H 18 99/62 96 01/05/19 13:41 01/05/19 13:41 01/05/19 13:41 01/05/19 13:41 01/05/19 10:48 Heart - S1, S2, Tachy Lungs - clear to auscultation Abdomen - Soft, non-tender. Bowel Sounds normal. Extremities - Bilateral LE dressings clean and dry. Neurovascularly intact. Wound Vac LLE. Laboratory Results - last 24 hr 01/04/19 01/04/19 01/04/19 06:45 16:54 21:19 WBC RBC Hgb Hct MCV MCH MCHC RDW Plt Count MPV Absolute Neuts (auto) Neutrophils % Lymphocytes % Monocytes % Eosinophils % Basophils % Nucleated RBC % Sodium 138 Potassium 4.2 Chloride 101 Carbon Dioxide 25 Anion Gap 11 BUN 35.0 H Creatinine 1.7 H Est GFR (CKD-EPI)AfAm 37.86 Est GFR (CKD-EPI)NonAf 32.67 POC Glucometer 152 145 Random Glucose 156 H Calcium 8.8 Phosphorus 3.0 Magnesium 1.9 Iron 18 L TIBC 224 L Iron Saturation 8 L Unsaturated IBC 206 Total Bilirubin 1.1 H AST 13 L ALT 18 Alkaline Phosphatase 53 Total Protein 5.8 L Albumin 2.1 L Vitamin B12 1115 H Serum Folate 5 01/05/19 01/05/19 01/05/19 05:15 05:15 05:15 WBC 9.5 RBC 3.50 L Hgb 8.9 L Hct 28.3 L MCV 80.9 MCH 25.3 L MCHC 31.3 L RDW 19.6 H Plt Count 333 MPV 8.4 Absolute Neuts (auto) 5.8 Neutrophils % 61.0 Lymphocytes % 26.2 Monocytes % 10.0 Eosinophils % 2.4 Basophils % 0.4 Nucleated RBC % 0 Sodium 136 Potassium 4.3 Chloride 103 Carbon Dioxide 24 Anion Gap 9 BUN 33.4 H Creatinine 1.8 H Est GFR (CKD-EPI)AfAm 35.34 Est GFR (CKD-EPI)NonAf 30.49 POC Glucometer 157 Random Glucose 154 H Calcium 8.9 Phosphorus 2.7 Magnesium 1.9 Iron Cancelled TIBC Cancelled Iron Saturation Cancelled Unsaturated IBC Cancelled Total Bilirubin 0.4 AST 15 ALT 20 Alkaline Phosphatase 59 Total Protein 6.0 L Albumin 2.1 L Vitamin B12 Serum Folate 01/05/19 11:35 WBC RBC Hgb Hct MCV MCH MCHC RDW Plt Count MPV Absolute Neuts (auto) Neutrophils % Lymphocytes % Monocytes % Eosinophils % Basophils % Nucleated RBC % Sodium Potassium Chloride Carbon Dioxide Anion Gap BUN Creatinine Est GFR (CKD-EPI)AfAm Est GFR (CKD-EPI)NonAf POC Glucometer 229 Random Glucose Calcium Phosphorus Magnesium Iron TIBC Iron Saturation Unsaturated IBC Total Bilirubin AST ALT Alkaline Phosphatase Total Protein Albumin Vitamin B12 Serum Folate Current Medications Generic Name Dose Route Start Last Admin Trade Name Freq PRN Reason Stop Dose Admin Acetaminophen 650 mg 12/29/18 21:49 01/04/19 20:41 Tylenol - PO 650 mg Q6H PRN Administration PAIN OR FEVER Aspirin 81 mg 12/31/18 10:00 01/05/19 09:34 Asa - PO 81 mg DAILY [facility] Administration Atorvastatin Calcium 40 mg 12/30/18 22:00 01/04/19 21:20 Lipitor - PO 40 mg HS [facility] Administration Bacitracin 1 applic 01/04/19 10:00 01/05/19 09:36 Bacitracin - TP Not Given DAILY [facility] Docusate Sodium 100 mg 01/03/19 11:53 01/03/19 13:06 Colace - PO 100 mg BID PRN Administration CONSTIPATION Ferrous Sulfate 325 mg 12/30/18 22:00 01/05/19 09:36 Feosol - PO 325 mg BID [facility] Administration Gabapentin 100 mg 12/31/18 10:00 01/05/19 09:34 Neurontin - PO 100 mg DAILY [facility] Administration Heparin Sodium (Porcine) 5,000 unit 12/31/18 10:00 01/05/19 09:35 Heparin - SQ 5,000 unit BID [facility] Administration Hydromorphone HCl 10 mg 12/30/18 17:15 01/05/19 08:48 Hydromorphone 10 Mg/50 Ml-Ns [employer]OL [employer]SPORTATION SUPERVISOR 01/06/19 17:11 10 mg SCHOOL TRANSPORTATION SUPERVISOR [facility] Administration Protocol Piperacillin Sod/Tazobactam 50 mls @ 100 mls/hr 12/30/18 11:30 01/05/19 09:34 Sod 2.25 gm/ Dextrose IVPB 100 mls/hr Q6H-IV [facility] Administration Protocol Insulin Aspart 1 vial 12/30/18 22:00 01/05/19 11:39 Novolog Vial Sliding Scale - SQ 5 unit ACHS [facility] Administration Protocol Lisinopril 2.5 mg 12/31/18 10:00 01/05/19 09:35 Prinivil PO Not Given DAILY [facility] Ondansetron HCl 4 mg 12/29/18 21:49 01/03/19 12:29 Zofran Injection IVPUSH 4 mg Q6H PRN Administration NAUSEA Ondansetron HCl 4 mg 12/30/18 17:09 Zofran Injection IVPUSH Q6H PRN NAUSEA AND/OR VOMITING Polyethylene Glycol 17 gm 01/04/19 10:00 01/05/19 09:37 Miralax (For Daily Use) - PO 17 gm BID [facility] Administration Senna 1 tab 01/03/19 12:00 01/05/19 09:36 Senna - PO 1 tab BID [facility] Administration Home Medications Medication Instructions Recorded Atorvastatin Ca [Lipitor] 40 mg PO HS 12/30/18 Insulin Glargine,Hum.rec.anlog 10 units SQ HS 12/30/18 [Basaglar Kwikpen U-100] Acetaminophen 650 mg PO Q6H PRN 12/31/18 Aspirin 81 mg PO DAILY 12/31/18 Clobetasol Propionate/Emoll 1 applic BID 12/31/18 [Clobetasol Emollient 0.05% Crm] Ferrous Sulfate 325 mg PO BID 12/31/18 Gabapentin 100 mg PO DAILY 12/31/18 Lisinopril [Zestril] 2.5 mg PO DAILY 12/31/18 ASSESSMENT AND PLAN: 58 year old female with history of HTN, HLD, CKD 3, DM 2, chronic venous insufficiency, and Chronic B/L LE non healing ulcers s/p prior skin graft, s/p multiple debridements, s/p hyperbaric oxygen therapy, admitted with intractable pain due to non-healing ulcers. 1. Non healing B/L LE Ulcers and Osteomyelitis with intractable pain POD 6 s/p skin graft 12/[address] Quintana. Bone Bx RLE pathology reports osteomyelitis. Wound Cx positive for Pseudomonas Day 7 IV Zosyn - fevers resolving. Leukocytosis resolved. Further management/recommendations as per ID and Plastic Sx. Still on Dilaudid [employer]CHOOL TRANSPORTATION SUPERVISOR. Continue Gabapenbtin for neuropathic pain. 2. Constipation - continue Colace, Senna, and Miralax. 3, DM 2 - Uncontrolled with Peripheral Neuropathy. Continue Levemir and sliding scale Novolog. 4. CKD 3 - Stable. Creat at baseline. 5. HTN - Continue Lisinopril. 6. HLD - Continue Statin. 7. Normocytic Anemia - multifactorial (including CKD, chronic disease, Iron Deficiency) - Iron Sat 8%, B12 - 1115, Folate 5. On FeSO4 supplementation. Unclear whether she has had out-patient [facility] work-up. Will add Folic Acid. DVT px - Heparin SQ
[2019-01-05] MEDS ORDERED: SODIUM PHOSPHATE/NA BIPHOS 133 ML ENEMA PR ONE (17:18)
[2019-01-05] MEDS: FOLIC ACID 1 MG TABLET (FP) PO SCH (18:55)
[2019-01-05] MEDS: ACETAMINOPHEN 325 MG TABLET (FP) PO PRN (20:15)
[2019-01-05] MEDS ORDERED: INSULIN (NOVOLOG) ASPART 100 UNITS/ML 10ML VIAL ONE (21:46)
[2019-01-05] MEDS: ATORVASTATIN CA 40 MG TABLET (FP) PO SCH (23:08)
[2019-01-06] MEDS ORDERED: PIPERACILLIN/TAZOBACTAM 2.25 GM VIAL IVPB ONE ×4 (02:48→20:16)
[2019-01-06] MEDS ORDERED: DEXTROSE 5%-WATER - 50 ML IVPB ONE ×4 (02:48→20:16)
[2019-01-06] MEDS: PIPERACILLIN/TAZOB 2.25 GM 2.25 GM in DEXTROSE 5%-WATER - 50 ML IVPB SCH ×4 (04:01→21:11)
[2019-01-06] MEDS: INSULIN SLIDING SCALE (NOVOLOG) 1 VIAL SQ SCH ×4 (07:01→23:28)
[2019-01-06 08:22] LABS: ALBUMIN 1.9 g/dl (3.4-5.0); BILIRUBIN,TOTAL 0.8 mg/dL (0.2-1); BLOOD UREA NITROGEN 28.2 mg/dL (7-18); CALCIUM 8.7 mg/dL (8.5-10.1); CREATININE 1.7 mg/dL (0.55-1.3); PHOSPHOROUS 3.1 mg/dL (2.5-4.9); POTASSIUM 3.8 mmol/L (3.5-5.1); TOT PROT 5.6 g/dl (6.4-8.2)
[2019-01-06 08:23] LABS: BASO % 0.4 % (0-2.0); EOS % 2.6 % (0-4.5); HEMATOCRIT 25.5 % (32.4-45.2); HEMOGLOBIN 8.1 GM/dL (10.7-15.3); LYMPH % 25.5 % (8-40); MCH 25.5 pg (25.7-33.7); MCHC 31.7 g/dl (32.0-36.0); MEAN CELL VOLUME 80.5 fl (80-96); MEAN PLT VOLUME 8.3 fl (7.5-11.1); MONO % 11.1 % (3.8-10.2); NEUT % 60.4 % (42.8-82.8); PLATELET COUNT 329 K/MM3 (134-434); RBC 3.16 M/mm3 (3.60-5.2); RDW 19.4 % (11.6-15.6); WHITE BLOOD COUNT 8.9 K/mm3 (4.0-10.0)
[2019-01-06] MEDS: GABAPENTIN 100 MG CAPSULE (FP) PO SCH (11:15)
[2019-01-06] MEDS: SENNOSIDES 8.6MG TABLET (FP) PO SCH ×2 (11:16→21:40)
[2019-01-06] MEDS: ASPIRIN 81 MG CHEWABLE TABLETS PO SCH (11:16)
[2019-01-06] MEDS: FERROUS SO4 325 MG TABLET (FP) PO SCH ×2 (11:16→21:41)
[2019-01-06] MEDS: FOLIC ACID 1 MG TABLET (FP) PO SCH (11:16)
[2019-01-06] MEDS: POLYETHYLENE GLYCOL 3350 119 GM BTL PO SCH ×2 (11:17→21:52)
[2019-01-06] MEDS: BACITRACIN 15 GM TUBE TOPICAL OINTMENT TP SCH (11:18)
[2019-01-06] MEDS: HEPARIN NA (PORCINE) 5,000 UNITS/ML 1ML VIAL SQ SCH ×2 (11:18→21:41)
[2019-01-06] MEDS: LISINOPRIL 5 MG TABLET (FP) PO SCH (11:20)
[2019-01-06] MEDS ORDERED: INSULIN (NOVOLOG) ASPART 100 UNITS/ML 10ML VIAL ONE (11:26)
--- NOTE | 2019-01-06 12:20 | PN ---
Progress Note, Physician History of Present Illness: stable no new issues - Current Medication List Current Medications: Active Medications Acetaminophen (Tylenol -) 650 mg PO Q6H PRN PRN Reason: PAIN OR FEVER Last Admin: 01/05/19 20:15 Dose: 650 mg Aspirin (Asa -) 81 mg PO DAILY [facility] Last Admin: 01/06/19 11:16 Dose: 81 mg Atorvastatin Calcium (Lipitor -) 40 mg PO HS [facility] Last Admin: 01/05/19 23:08 Dose: 40 mg Bacitracin (Bacitracin -) 1 applic TP DAILY [facility] Last Admin: 01/06/19 11:18 Dose: Not Given Docusate Sodium (Colace -) 100 mg PO BID PRN PRN Reason: CONSTIPATION Last Admin: 01/03/19 13:06 Dose: 100 mg Ferrous Sulfate (Feosol -) 325 mg PO BID [facility] Last Admin: 01/06/19 11:16 Dose: 325 mg Folic Acid (Folic Acid -) 1 mg PO DAILY [facility] Last Admin: 01/06/19 11:16 Dose: 1 mg Gabapentin (Neurontin -) 100 mg PO DAILY [facility] Last Admin: 01/06/19 11:15 Dose: 100 mg Heparin Sodium (Porcine) (Heparin -) 5,000 unit SQ BID [facility] Last Admin: 01/06/19 11:18 Dose: 5,000 unit Hydromorphone HCl (Hydromorphone 10 Mg/50 Ml-Ns) 10 mg SERVICE DISMANTLER SERVICE DISMANTLER [facility]; Protocol Stop: 01/06/19 17:11 Last Admin: 01/05/19 22:29 Dose: 10 mg Piperacillin Sod/Tazobactam (Sod 2.25 gm/ Dextrose) 50 mls @ 100 mls/hr IVPB Q6H-IV [facility]; Protocol Last Admin: 01/06/19 10:17 Dose: 100 mls/hr Insulin Aspart (Novolog Vial Sliding Scale -) 1 vial SQ ACHS [facility]; Protocol Last Admin: 01/06/19 11:28 Dose: 2 unit Lisinopril (Prinivil) 2.5 mg PO DAILY [facility] Last Admin: 01/06/19 11:20 Dose: 2.5 mg Ondansetron HCl (Zofran Injection) 4 mg IVPUSH Q6H PRN PRN Reason: NAUSEA Last Admin: 01/03/19 12:29 Dose: 4 mg Ondansetron HCl (Zofran Injection) 4 mg IVPUSH Q6H PRN PRN Reason: NAUSEA AND/OR VOMITING Polyethylene Glycol (Miralax (For Daily Use) -) 17 gm PO BID [facility] Last Admin: 01/06/19 11:17 Dose: Not Given Senna (Senna -) 1 tab PO BID [facility] Last Admin: 01/06/19 11:16 Dose: Not Given - Objective Vital Signs: Vital Signs Temperature 98.5 F 01/06/19 10:12 Pulse Rate 117 H 01/06/19 10:12 Respiratory Rate 20 01/06/19 10:12 Blood Pressure 112/66 01/06/19 10:12 O2 Sat by Pulse Oximetry (%) 95 01/06/19 04:29 Constitutional: Yes: No Distress, Calm Cardiovascular: Yes: Regular Rate and Rhythm Respiratory: Yes: Regular, CTA Bilaterally Gastrointestinal: Yes: Normal Bowel Sounds, Soft Musculoskeletal: Yes: WNL Extremities: Yes: Other Wound/Incision: Yes: Dressing Dry and Intact Neurological: Yes: Alert, Oriented Psychiatric: Yes: Alert, Oriented Labs: CBC, BMP 01/06/19 06:50 01/06/19 06:50 INR, PTT INR 0.97 (0.83-1.09) 12/30/18 07:10 Assessment/Plan 58 year old female with a past medical history of HTN, HLD, bilateral chronic leg wounds secondary to venous ulcers admitted for intractable pain secondary to chronic venous stasis ulcers. Chrnoic venous stasis dermatitis ulcers HTN HLD Anemia CKD post skin grafting bone fragments show osteo plan will need zosyn for 4 more weeks wound care rest as per the team
--- NOTE | 2019-01-06 12:53 | PN ---
Progress Note (short form) - Note Progress Note: pt. seen and examined this am by Dr. Peace. Primary team requesting IV INVESTOR RELATIONS SPECIALIST to be discontinued. Rec. d/c IV INVESTOR RELATIONS SPECIALIST and begin PO percocet prn pain.
--- NOTE | 2019-01-06 13:00 | PN ---
Physical Exam: SUBJECTIVE: 58 y/o F w PMH HTN, dyslipidemia, CKD, DM and BL LE non healing ulcers whom came to the ED 2/2 intractable leg pain and admitted for surgical grafting. No concerns overnight. Pain controlled with PO. Afebrile. Passing stool and flatus. She denies NVFCD. OBJECTIVE: Vital Signs Period Temp Pulse Resp BP Sys/Dodson Pulse Ox Last 24 Hr 97.9 F-100.6 F 104-121 18-20 92-112/56-69 95-96 GENERAL: AOx3, in no acute distress. Uzbek speaking only. HEAD: NCAT EYES: NEDRA, EOMI, conjunctiva clear. EARS, NOSE, THROAT: Ears normal, nares patent, oropharynx clear without exudates. Moist mucous membranes. NECK: Normal range of motion, supple without lymphadenopathy, JVD, or masses. LUNGS: CTAB . No wheezes, and no crackles. No accessory muscle use. HEART: RRR s1 s2 no rubs, gallops, murmurs ABDOMEN: Soft, BS present in all 4 quadrants, non-distended, no JVD, MUSCULOSKELETAL: No bony deformities or tenderness. No CVA tenderness. UPPER EXTREMITIES: 2+ pulses, warm, well-perfused. No cyanosis. No clubbing. No peripheral edema. LOWER EXTREMITIES: BL circumferential bandages, on distal LE and proximal LE ( site of autograft) covered by bandages. [address] on LEFT LE. Pulses not appreciable, warm, no peripheral edema. NEUROLOGICAL: Cranial nerves II-XII intact. Normal speech. Gait not appreciated. PSYCHIATRIC: Cooperative. Good eye contact. Appropriate mood and affect. SKIN: LE skin as above. Otherwise, warm, dry, normal turgor, no rashes or lesions noted, normal capillary refill. Laboratory Results - last 24 hr 01/05/19 01/05/19 01/06/19 17:27 23:12 06:50 WBC 8.9 RBC 3.16 L Hgb 8.1 L Hct 25.5 L MCV 80.5 MCH 25.5 L MCHC 31.7 L RDW 19.4 H Plt Count 329 MPV 8.3 Absolute Neuts (auto) 5.3 Neutrophils % 60.4 Lymphocytes % 25.5 Monocytes % 11.1 H Eosinophils % 2.6 Basophils % 0.4 Nucleated RBC % 0 Sodium Potassium Chloride Carbon Dioxide Anion Gap BUN Creatinine Est GFR (CKD-EPI)AfAm Est GFR (CKD-EPI)NonAf POC Glucometer 129 115 Random Glucose Calcium Phosphorus Magnesium Total Bilirubin AST ALT Alkaline Phosphatase Total Protein Albumin 01/06/19 01/06/19 06:50 06:59 WBC RBC Hgb Hct MCV MCH MCHC RDW Plt Count MPV Absolute Neuts (auto) Neutrophils % Lymphocytes % Monocytes % Eosinophils % Basophils % Nucleated RBC % Sodium 134 L Potassium 3.8 Chloride 101 Carbon Dioxide 24 Anion Gap 9 BUN 28.2 H Creatinine 1.7 H Est GFR (CKD-EPI)AfAm 37.86 Est GFR (CKD-EPI)NonAf 32.67 POC Glucometer 145 Random Glucose 134 H Calcium 8.7 Phosphorus 3.1 Magnesium 2.0 Total Bilirubin 0.8 AST 14 L ALT 17 Alkaline Phosphatase 54 Total Protein 5.6 L Albumin 1.9 L Active Medications Generic Name Dose Route Start Last Admin Trade Name Freq PRN Reason Stop Dose Admin Acetaminophen 650 mg 12/29/18 21:49 01/05/19 20:15 Tylenol - PO 650 mg Q6H PRN Administration PAIN OR FEVER Aspirin 81 mg 12/31/18 10:00 01/06/19 11:16 Asa - PO 81 mg DAILY ENZO Administration Atorvastatin Calcium 40 mg 12/30/18 22:00 01/05/19 23:08 Lipitor - PO 40 mg HS ENZO Administration Bacitracin 1 applic 01/04/19 10:00 01/06/19 11:18 Bacitracin - TP Not Given DAILY ENZO Docusate Sodium 100 mg 01/03/19 11:53 01/03/19 13:06 Colace - PO 100 mg BID PRN Administration CONSTIPATION Ferrous Sulfate 325 mg 12/30/18 22:00 01/06/19 11:16 Feosol - PO 325 mg BID ENZO Administration Folic Acid 1 mg 01/05/19 17:30 01/06/19 11:16 Folic Acid - PO 1 mg DAILY ENZO Administration Gabapentin 100 mg 12/31/18 10:00 01/06/19 11:15 Neurontin - PO 100 mg DAILY ENZO Administration Heparin Sodium (Porcine) 5,000 unit 12/31/18 10:00 01/06/19 11:18 Heparin - SQ 5,000 unit BID ENZO Administration Piperacillin Sod/Tazobactam 50 mls @ 100 mls/hr 12/30/18 11:30 01/06/19 10:17 Sod 2.25 gm/ Dextrose IVPB 100 mls/hr Q6H-IV ENZO Administration Protocol Insulin Aspart 1 vial 12/30/18 22:00 01/06/19 11:28 Novolog Vial Sliding Scale - SQ 2 unit ACHS ENZO Administration Protocol Lisinopril 2.5 mg 12/31/18 10:00 01/06/19 11:20 Prinivil PO 2.5 mg DAILY ENZO Administration Ondansetron HCl 4 mg 12/29/18 21:49 01/03/19 12:29 Zofran Injection IVPUSH 4 mg Q6H PRN Administration NAUSEA Ondansetron HCl 4 mg 12/30/18 17:09 Zofran Injection IVPUSH Q6H PRN NAUSEA AND/OR VOMITING Oxycodone/Acetaminophen 2 combo 01/06/19 12:49 Percocet 5/325 - PO Q6H PRN PAIN LEVEL 6-10 Oxycodone/Acetaminophen 1 combo 01/06/19 12:51 Percocet 5/325 - PO Q6H PRN PAIN LEVEL 1-5 Polyethylene Glycol 17 gm 01/04/19 10:00 01/06/19 11:17 Miralax (For Daily Use) - PO Not Given BID ENZO Senna 1 tab 01/03/19 12:00 01/06/19 11:16 Senna - PO Not Given BID ENZO ASSESSMENT/PLAN: 58 y/o F w PMH HTN, HLD, CKD, DM and BL LE non-healing ulcers whom came to the ED 2/2 intractable leg pain. Pt post op from grafting and tolerated surgery well , now POD 7. S/p hyperbaric oxygen therapy. Osteomyelitis. No longer constipated s/p fleet enema. No longer using DIGITAL INTERN pump; well covered w PO. # Non-healing BL LE ulcers and osteomyelitis w intractable pain - B/L LE skin graft 30 Dec 2018 - Cx (+) for pseudomonas - Zosyn day 8 - No fever overnight. 99.6 temp w no white count previously. - Pain relief w PO. - WBAT per plastic surgeon - Wound vac in place LLE - ID consulted (Dr. Cevallos) - Plastic sx (Dr. Quintana) # Osteomyelitis - (+) pathology report for acute osteomyelitis - Zosyn for 4 more weeks - Central line placement this evening, then plan for group home facility for abx # Constipation, resolved - Senna, colace, miralax a - Fleet enema added # DM - ISS - Cont. gabapenbtin for neuropathic pain # CKD - At baseline # HTN - Cont. home regimen # Hyperkalemia - Resolved # F/E/N - LR - Cont. to monitor - Diabetic/low na diet # DVT prophylaxis - Heparin Tacos Medrano MD Visit type - Emergency Visit Emergency Visit: No - New Patient This patient is new to me today: No - Critical Care Critical Care patient: No - Discharge Referral Referred to [facility] No ATTENDING PHYSICIAN STATEMENT I saw and evaluated the patient. I reviewed the resident's note and discussed the case with the resident. I agree with the resident's findings and plan as documented. SUBJECTIVE: OBJECTIVE: ASSESSMENT AND PLAN:
[2019-01-06] MEDS ORDERED: oxyCODONE HCL 5 MG TABLET PO PRN (13:03)
--- NOTE | 2019-01-06 14:07 | PN ---
Teaching Attending Note Name of Resident: Tacos Medrano ATTENDING PHYSICIAN STATEMENT I saw and evaluated the patient. I reviewed the resident's note and discussed the case with the resident. I agree with the resident's findings and plan as documented. SUBJECTIVE: Reports ongoing LE pain, still using TRIM LINE WORKER overnight. OBJECTIVE: Afebrile, Hemodynamically stable. Last Vital Signs Temp Pulse Resp BP Pulse Ox 98.5 F 117 H 20 112/66 95 01/06/19 10:12 01/06/19 10:12 01/06/19 10:12 01/06/19 10:12 01/06/19 04:29 Heart - S1, S2, Tachy Lungs - clear to auscultation Abdomen - Soft, non-tender. Bowel Sounds normal. Extremities - Bilateral LE dressings clean and dry. Neurovascularly intact. Wound Vac LLE. Laboratory Results - last 24 hr 01/05/19 01/05/19 01/06/19 17:27 23:12 06:50 WBC 8.9 RBC 3.16 L Hgb 8.1 L Hct 25.5 L MCV 80.5 MCH 25.5 L MCHC 31.7 L RDW 19.4 H Plt Count 329 MPV 8.3 Absolute Neuts (auto) 5.3 Neutrophils % 60.4 Lymphocytes % 25.5 Monocytes % 11.1 H Eosinophils % 2.6 Basophils % 0.4 Nucleated RBC % 0 Sodium Potassium Chloride Carbon Dioxide Anion Gap BUN Creatinine Est GFR (CKD-EPI)AfAm Est GFR (CKD-EPI)NonAf POC Glucometer 129 115 Random Glucose Calcium Phosphorus Magnesium Total Bilirubin AST ALT Alkaline Phosphatase Total Protein Albumin 01/06/19 01/06/19 06:50 06:59 WBC RBC Hgb Hct MCV MCH MCHC RDW Plt Count MPV Absolute Neuts (auto) Neutrophils % Lymphocytes % Monocytes % Eosinophils % Basophils % Nucleated RBC % Sodium 134 L Potassium 3.8 Chloride 101 Carbon Dioxide 24 Anion Gap 9 BUN 28.2 H Creatinine 1.7 H Est GFR (CKD-EPI)AfAm 37.86 Est GFR (CKD-EPI)NonAf 32.67 POC Glucometer 145 Random Glucose 134 H Calcium 8.7 Phosphorus 3.1 Magnesium 2.0 Total Bilirubin 0.8 AST 14 L ALT 17 Alkaline Phosphatase 54 Total Protein 5.6 L Albumin 1.9 L Current Medications Generic Name Dose Route Start Last Admin Trade Name Freq PRN Reason Stop Dose Admin Acetaminophen 650 mg 12/29/18 21:49 01/05/19 20:15 Tylenol - PO 650 mg Q6H PRN Administration FEVER Acetaminophen 325 mg 01/06/19 13:04 Tylenol - PO Q6H PRN PAIN 1-5 Acetaminophen 650 mg 01/06/19 13:04 Tylenol - PO Q6H PRN PAIN 6-10 Aspirin 81 mg 12/31/18 10:00 01/06/19 11:16 Asa - PO 81 mg DAILY ENZO Administration Atorvastatin Calcium 40 mg 12/30/18 22:00 01/05/19 23:08 Lipitor - PO 40 mg HS ENZO Administration Bacitracin 1 applic 01/04/19 10:00 01/06/19 11:18 Bacitracin - TP Not Given DAILY [facility] Docusate Sodium 100 mg 01/03/19 11:53 01/03/19 13:06 Colace - PO 100 mg BID PRN Administration CONSTIPATION Ferrous Sulfate 325 mg 12/30/18 22:00 01/06/19 11:16 Feosol - PO 325 mg BID ENZO Administration Folic Acid 1 mg 01/05/19 17:30 01/06/19 11:16 Folic Acid - PO 1 mg DAILY ENZO Administration Gabapentin 100 mg 12/31/18 10:00 01/06/19 11:15 Neurontin - PO 100 mg DAILY ENZO Administration Heparin Sodium (Porcine) 5,000 unit 12/31/18 10:00 01/06/19 11:18 Heparin - SQ 5,000 unit BID ENZO Administration Piperacillin Sod/Tazobactam 50 mls @ 100 mls/hr 12/30/18 11:30 01/06/19 10:17 Sod 2.25 gm/ Dextrose IVPB 100 mls/hr Q6H-IV ENZO Administration Protocol Insulin Aspart 1 vial 12/30/18 22:00 01/06/19 11:28 Novolog Vial Sliding Scale - SQ 2 unit ACHS ENZO Administration Protocol Lisinopril 2.5 mg 12/31/18 10:00 01/06/19 11:20 Prinivil PO 2.5 mg DAILY ENZO Administration Ondansetron HCl 4 mg 12/29/18 21:49 01/03/19 12:29 Zofran Injection IVPUSH 4 mg Q6H PRN Administration NAUSEA Ondansetron HCl 4 mg 12/30/18 17:09 Zofran Injection IVPUSH Q6H PRN NAUSEA AND/OR VOMITING Oxycodone HCl 5 mg 01/06/19 13:03 Roxicodone - PO Q6H PRN PAIN 1-5 Oxycodone HCl 10 mg 01/06/19 13:04 Roxicodone - PO Q6H PRN PAIN 6-10 Polyethylene Glycol 17 gm 01/04/19 10:00 01/06/19 11:17 Miralax (For Daily Use) - PO Not Given BID ENZO Senna 1 tab 01/03/19 12:00 01/06/19 11:16 Senna - PO Not Given BID [facility] Home Medications Medication Instructions Recorded Atorvastatin Ca [Lipitor] 40 mg PO HS 12/30/18 Insulin Glargine,Hum.rec.anlog 10 units SQ HS 12/30/18 [Basaglar Kwikpen U-100] Acetaminophen 650 mg PO Q6H PRN 12/31/18 Aspirin 81 mg PO DAILY 12/31/18 Clobetasol Propionate/Emoll 1 applic BID 12/31/18 [Clobetasol Emollient 0.05% Crm] Ferrous Sulfate 325 mg PO BID 12/31/18 Gabapentin 100 mg PO DAILY 12/31/18 Lisinopril [Zestril] 2.5 mg PO DAILY 12/31/18 ASSESSMENT AND PLAN: 58 year old female with history of HTN, HLD, CKD 3, DM 2, chronic venous insufficiency, and Chronic B/L LE non healing ulcers s/p prior skin graft, s/p multiple debridements, s/p hyperbaric oxygen therapy, admitted with intractable pain due to non-healing ulcers. 1. Non healing B/L LE Ulcers and Osteomyelitis with intractable pain POD 7 s/p skin graft 9/[address] Quintana. Bone Bx RLE pathology reports osteomyelitis. Wound Cx positive for Pseudomonas Day 8 IV Zosyn - fevers resolving. Leukocytosis resolved. Further management/recommendations as per ID include 5 additional weeks of IV zosyn. PICC requested. Still on Dilaudid TRIM LINE WORKER - will transition to Percocet PRN. Continue Gabapentin for neuropathic pain. 2. Constipation - continue Colace, Senna, and Miralax. 3, DM 2 - Uncontrolled with Peripheral Neuropathy. Continue Levemir and sliding scale Novolog. 4. CKD 3 - Stable. Creat at baseline. 5. HTN - Continue Lisinopril. 6. HLD - Continue Statin. 7. Normocytic Anemia - multifactorial (including CKD, chronic disease, Iron Deficiency) - Iron Sat 8%, B12 - 1115, Folate 5. On FeSO4 supplementation. Unclear whether she has had out-patient [facility] work-up. Will add Folic Acid. DVT px - Heparin SQ
[2019-01-06] MEDS: ACETAMINOPHEN 325 MG TABLET (FP) PO PRN ×2 (14:21→20:29)
[2019-01-06] MEDS: oxyCODONE HCL 5 MG TABLET PO PRN ×2 (14:22→20:28)
[2019-01-06] MEDS: ATORVASTATIN CA 40 MG TABLET (FP) PO SCH (21:41)
[2019-01-07] MEDS ORDERED: PIPERACILLIN/TAZOBACTAM 2.25 GM VIAL IVPB ONE ×3 (02:54→14:13)
[2019-01-07] MEDS ORDERED: DEXTROSE 5%-WATER - 50 ML IVPB ONE ×3 (02:54→14:13)
[2019-01-07] MEDS: oxyCODONE HCL 5 MG TABLET PO PRN ×3 (03:08→14:55)
[2019-01-07] MEDS: PIPERACILLIN/TAZOB 2.25 GM 2.25 GM in DEXTROSE 5%-WATER - 50 ML IVPB SCH ×3 (03:10→15:41)
[2019-01-07] MEDS: INSULIN SLIDING SCALE (NOVOLOG) 1 VIAL SQ SCH ×3 (06:18→16:27)
[2019-01-07 08:08] LABS: BASO % 0.4 % (0-2.0); EOS % 3.1 % (0-4.5); HEMATOCRIT 25.1 % (32.4-45.2); LYMPH % 34.2 % (8-40); MCH 25.5 pg (25.7-33.7); MCHC 31.7 g/dl (32.0-36.0); MEAN CELL VOLUME 80.5 fl (80-96); MEAN PLT VOLUME 8.1 fl (7.5-11.1); MONO % 11.8 % (3.8-10.2); NEUT % 50.5 % (42.8-82.8); PLATELET COUNT 347 K/MM3 (134-434); RBC 3.12 M/mm3 (3.60-5.2); RDW 19.1 % (11.6-15.6); WHITE BLOOD COUNT 7.6 K/mm3 (4.0-10.0)
[2019-01-07 08:35] LABS: ALBUMIN 1.9 g/dl (3.4-5.0); BILIRUBIN,TOTAL 0.3 mg/dL (0.2-1); BLOOD UREA NITROGEN 30.1 mg/dL (7-18); CALCIUM 8.7 mg/dL (8.5-10.1); CREATININE 1.7 mg/dL (0.55-1.3); MAGNESIUM 2.1 mg/dL (1.8-2.4); PHOSPHOROUS 3.3 mg/dL (2.5-4.9); TOT PROT 5.6 g/dl (6.4-8.2)
[2019-01-07] MEDS: ACETAMINOPHEN 325 MG TABLET (FP) PO PRN ×3 (08:53→18:23)
[2019-01-07] MEDS: HEPARIN NA (PORCINE) 5,000 UNITS/ML 1ML VIAL SQ SCH (10:01)
[2019-01-07] MEDS: GABAPENTIN 100 MG CAPSULE (FP) PO SCH (10:05)
[2019-01-07] MEDS: ASPIRIN 81 MG CHEWABLE TABLETS PO SCH (10:05)
[2019-01-07] MEDS: LISINOPRIL 5 MG TABLET (FP) PO SCH (10:05)
[2019-01-07] MEDS: SENNOSIDES 8.6MG TABLET (FP) PO SCH (10:05)
[2019-01-07] MEDS: FERROUS SO4 325 MG TABLET (FP) PO SCH (10:05)
[2019-01-07] MEDS: FOLIC ACID 1 MG TABLET (FP) PO SCH (10:07)
[2019-01-07] MEDS: POLYETHYLENE GLYCOL 3350 119 GM BTL PO SCH (10:07)
[2019-01-07] MEDS: BACITRACIN 15 GM TUBE TOPICAL OINTMENT TP SCH ×2 (10:09→15:40)
--- NOTE | 2019-01-07 12:39 | PN ---
Progress Note, Physician History of Present Illness: stable no new issues - Current Medication List Current Medications: Active Medications Acetaminophen (Tylenol -) 650 mg PO Q6H PRN PRN Reason: FEVER Last Admin: 01/06/19 20:29 Dose: 650 mg Acetaminophen (Tylenol -) 325 mg PO Q6H PRN PRN Reason: PAIN 1-5 Acetaminophen (Tylenol -) 650 mg PO Q6H PRN PRN Reason: PAIN 6-10 Last Admin: 01/07/19 08:53 Dose: 650 mg Aspirin (Asa -) 81 mg PO DAILY [facility] Last Admin: 01/07/19 10:05 Dose: 81 mg Atorvastatin Calcium (Lipitor -) 40 mg PO HS [facility] Last Admin: 01/06/19 21:41 Dose: 40 mg Bacitracin (Bacitracin -) 1 applic TP DAILY [facility] Last Admin: 01/07/19 10:09 Dose: Not Given Docusate Sodium (Colace -) 100 mg PO BID PRN PRN Reason: CONSTIPATION Last Admin: 01/03/19 13:06 Dose: 100 mg Ferrous Sulfate (Feosol -) 325 mg PO BID [facility] Last Admin: 01/07/19 10:05 Dose: 325 mg Folic Acid (Folic Acid -) 1 mg PO DAILY [facility] Last Admin: 01/07/19 10:07 Dose: 1 mg Gabapentin (Neurontin -) 100 mg PO DAILY [facility] Last Admin: 01/07/19 10:05 Dose: 100 mg Heparin Sodium (Porcine) (Heparin -) 5,000 unit SQ BID [facility] Last Admin: 01/07/19 10:01 Dose: 5,000 unit Piperacillin Sod/Tazobactam (Sod 2.25 gm/ Dextrose) 50 mls @ 100 mls/hr IVPB Q6H-IV [facility]; Protocol Last Admin: 01/07/19 09:58 Dose: 100 mls/hr Insulin Aspart (Novolog Vial Sliding Scale -) 1 vial SQ ACHS [facility]; Protocol Last Admin: 01/07/19 06:18 Dose: Not Given Lisinopril (Prinivil) 2.5 mg PO DAILY [facility] Last Admin: 01/07/19 10:05 Dose: 2.5 mg Ondansetron HCl (Zofran Injection) 4 mg IVPUSH Q6H PRN PRN Reason: NAUSEA Last Admin: 01/03/19 12:29 Dose: 4 mg Ondansetron HCl (Zofran Injection) 4 mg IVPUSH Q6H PRN PRN Reason: NAUSEA AND/OR VOMITING Oxycodone HCl (Roxicodone -) 5 mg PO Q6H PRN PRN Reason: PAIN 1-5 Oxycodone HCl (Roxicodone -) 10 mg PO Q6H PRN PRN Reason: PAIN 6-10 Last Admin: 01/07/19 08:52 Dose: 10 mg Polyethylene Glycol (Miralax (For Daily Use) -) 17 gm PO BID [facility] Last Admin: 01/07/19 10:07 Dose: Not Given Senna (Senna -) 1 tab PO BID [facility] Last Admin: 01/07/19 10:05 Dose: 1 tab - Objective Vital Signs: Vital Signs Temperature 97.9 F 01/07/19 09:30 Pulse Rate 95 H 01/07/19 09:30 Respiratory Rate 18 01/07/19 09:30 Blood Pressure 106/67 01/07/19 09:30 O2 Sat by Pulse Oximetry (%) 100 01/06/19 21:00 Constitutional: Yes: No Distress, Calm Cardiovascular: Yes: S1, S2 Respiratory: Yes: Regular, CTA Bilaterally Gastrointestinal: Yes: Normal Bowel Sounds, Soft Musculoskeletal: Yes: Other Extremities: Yes: Other Wound/Incision: Yes: Dressing Dry and Intact Neurological: Yes: Alert, Oriented Psychiatric: Yes: Alert, Oriented Labs: CBC, BMP 01/07/19 06:50 01/07/19 06:50 INR, PTT INR 0.97 (0.83-1.09) 12/30/18 07:10 Assessment/Plan 58 year old female with a past medical history of HTN, HLD, bilateral chronic leg wounds secondary to venous ulcers admitted for intractable pain secondary to chronic venous stasis ulcers. Chrnoic venous stasis dermatitis ulcers HTN HLD Anemia CKD post skin grafting bone fragments show osteo plan will need zosyn for 4 more weeks wound care rest as per the team
--- NOTE | 2019-01-07 15:17 | PN ---
Teaching Attending Note Name of Resident: Tacos Medrano ATTENDING PHYSICIAN STATEMENT I saw and evaluated the patient. I reviewed the resident's note and discussed the case with the resident. I agree with the resident's findings and plan as documented. SUBJECTIVE: Reports some ongoing LE pain, maintained on percocet orally. OBJECTIVE: Afebrile, Hemodynamically stable. Last Vital Signs Temp Pulse Resp BP Pulse Ox 97.9 F 95 H 18 106/67 100 01/07/19 09:30 01/07/19 09:30 01/07/19 09:30 01/07/19 09:30 01/06/19 21:00 Heart - S1, S2, RRR Lungs - clear to auscultation. R tunnelled catheter in place. Abdomen - Soft, non-tender. Bowel Sounds normal. Extremities - Bilateral LE dressings clean and dry. Neurovascularly intact. Wound Vac LLE. Laboratory Results - last 24 hr 01/06/19 01/06/19 01/06/19 11:12 16:15 21:44 WBC RBC Hgb Hct MCV MCH MCHC RDW Plt Count MPV Absolute Neuts (auto) Neutrophils % Lymphocytes % Monocytes % Eosinophils % Basophils % Nucleated RBC % Sodium Potassium Chloride Carbon Dioxide Anion Gap BUN Creatinine Est GFR (CKD-EPI)AfAm Est GFR (CKD-EPI)NonAf POC Glucometer 180 115 134 Random Glucose Calcium Phosphorus Magnesium Total Bilirubin AST ALT Alkaline Phosphatase Total Protein Albumin Blood Type Antibody Screen 01/07/19 01/07/19 01/07/19 06:14 06:50 06:50 WBC 7.6 RBC 3.12 L Hgb 8.0 L Hct 25.1 L MCV 80.5 MCH 25.5 L MCHC 31.7 L RDW 19.1 H Plt Count 347 MPV 8.1 Absolute Neuts (auto) 3.8 Neutrophils % 50.5 Lymphocytes % 34.2 D Monocytes % 11.8 H Eosinophils % 3.1 Basophils % 0.4 Nucleated RBC % 0 Sodium 134 L Potassium 4.0 Chloride 102 Carbon Dioxide 25 Anion Gap 8 BUN 30.1 H Creatinine 1.7 H Est GFR (CKD-EPI)AfAm 37.86 Est GFR (CKD-EPI)NonAf 32.67 POC Glucometer 132 Random Glucose 119 H Calcium 8.7 Phosphorus 3.3 Magnesium 2.1 Total Bilirubin 0.3 AST 16 ALT 19 Alkaline Phosphatase 61 Total Protein 5.6 L Albumin 1.9 L Blood Type Antibody Screen 01/07/19 01/07/19 06:55 12:09 WBC RBC Hgb Hct MCV MCH MCHC RDW Plt Count MPV Absolute Neuts (auto) Neutrophils % Lymphocytes % Monocytes % Eosinophils % Basophils % Nucleated RBC % Sodium Potassium Chloride Carbon Dioxide Anion Gap BUN Creatinine Est GFR (CKD-EPI)AfAm Est GFR (CKD-EPI)NonAf POC Glucometer 157 Random Glucose Calcium Phosphorus Magnesium Total Bilirubin AST ALT Alkaline Phosphatase Total Protein Albumin Blood Type O POSITIVE Antibody Screen Negative Current Medications Generic Name Dose Route Start Last Admin Trade Name Freq PRN Reason Stop Dose Admin Acetaminophen 650 mg 12/29/18 21:49 01/06/19 20:29 Tylenol - PO 650 mg Q6H PRN Administration FEVER Acetaminophen 325 mg 01/06/19 13:04 01/07/19 14:59 Tylenol - PO 325 mg Q6H PRN Administration PAIN 1-5 Acetaminophen 650 mg 01/06/19 13:04 01/07/19 08:53 Tylenol - PO 650 mg Q6H PRN Administration PAIN 6-10 Aspirin 81 mg 12/31/18 10:00 01/07/19 10:05 Asa - PO 81 mg DAILY ENZO Administration Atorvastatin Calcium 40 mg 12/30/18 22:00 01/06/19 21:41 Lipitor - PO 40 mg HS ENZO Administration Bacitracin 1 applic 01/04/19 10:00 01/07/19 10:09 Bacitracin - TP Not Given DAILY ENZO Docusate Sodium 100 mg 01/03/19 11:53 01/03/19 13:06 Colace - PO 100 mg BID PRN Administration CONSTIPATION Ferrous Sulfate 325 mg 12/30/18 22:00 01/07/19 10:05 Feosol - PO 325 mg BID ENZO Administration Folic Acid 1 mg 01/05/19 17:30 01/07/19 10:07 Folic Acid - PO 1 mg DAILY ENZO Administration Gabapentin 100 mg 12/31/18 10:00 01/07/19 10:05 Neurontin - PO 100 mg DAILY ENZO Administration Heparin Sodium (Porcine) 5,000 unit 12/31/18 10:00 01/07/19 10:01 Heparin - SQ 5,000 unit BID ENZO Administration Piperacillin Sod/Tazobactam 50 mls @ 100 mls/hr 12/30/18 11:30 01/07/19 09:58 Sod 2.25 gm/ Dextrose IVPB 100 mls/hr Q6H-IV ENZO Administration Protocol Insulin Aspart 1 vial 12/30/18 22:00 01/07/19 12:41 Novolog Vial Sliding Scale - SQ 3 unit ACHS ENZO Administration Protocol Lisinopril 2.5 mg 12/31/18 10:00 01/07/19 10:05 Prinivil PO 2.5 mg DAILY ENZO Administration Ondansetron HCl 4 mg 12/29/18 21:49 01/03/19 12:29 Zofran Injection IVPUSH 4 mg Q6H PRN Administration NAUSEA Ondansetron HCl 4 mg 12/30/18 17:09 Zofran Injection IVPUSH Q6H PRN NAUSEA AND/OR VOMITING Oxycodone HCl 5 mg 01/06/19 13:03 Roxicodone - PO Q6H PRN PAIN 1-5 Oxycodone HCl 10 mg 01/06/19 13:04 01/07/19 14:55 Roxicodone - PO 10 mg Q6H PRN Administration PAIN 6-10 Polyethylene Glycol 17 gm 01/04/19 10:00 01/07/19 10:07 Miralax (For Daily Use) - PO Not Given BID ENZO Senna 1 tab 01/03/19 12:00 01/07/19 10:05 Senna - PO 1 tab BID ENZO Administration Home Medications Medication Instructions Recorded Atorvastatin Ca [Lipitor] 40 mg PO HS 12/30/18 Insulin Glargine,Hum.rec.anlog 10 units SQ HS 12/30/18 [Basaglar Kwikpen U-100] Aspirin 81 mg PO DAILY 12/31/18 Clobetasol Propionate/Emoll 1 applic BID 12/31/18 [Clobetasol Emollient 0.05% Crm] Ferrous Sulfate 325 mg PO BID 12/31/18 Gabapentin 100 mg PO DAILY 12/31/18 Lisinopril [Zestril] 2.5 mg PO DAILY 12/31/18 Piperacillin/Tazob 2.25 gm [Zosyn 2.25 gm IVPB Q6H-IV vial 01/07/19 -] ASSESSMENT AND PLAN: 58 year old female with history of HTN, HLD, CKD 3, DM 2, chronic venous insufficiency, and Chronic B/L LE non healing ulcers s/p prior skin graft, s/p multiple debridements, s/p hyperbaric oxygen therapy, admitted with intractable pain due to non-healing ulcers. 1. Non healing B/L LE Ulcers and Osteomyelitis with intractable pain POD 8 s/p skin graft 9/[address] Quintana. Bone Bx RLE pathology reports osteomyelitis. Wound Cx positive for Pseudomonas Day 9 IV Zosyn - fevers resolving. Leukocytosis resolved. Further management/recommendations as per ID include 5 additional weeks of IV zosyn. R tunneled catheter placed by IR. Pain currently managed with Percocet PRN. Continue Gabapentin for neuropathic pain. 2. Constipation - continue Colace, Senna, and Miralax. 3, DM 2 - resume home diabetic regimen 4. CKD 3 - Stable. Creat at baseline. 5. HTN - Continue Lisinopril. 6. HLD - Continue Statin. 7. Normocytic Anemia - multifactorial (including CKD, chronic disease, Iron Deficiency) - Iron Sat 8%, B12 - 1115, Folate 5. On FeSO4 supplementation. Unclear whether she has had out-patient [facility] work-up - will defer to PCP for such work-up. Will add Folic Acid. DVT px - Heparin SQ Medically stable for discharge to SNF for 5 additional weeks of IV zosyn.
--- NOTE | 2019-01-07 16:19 | PN ---
Progress Note (short form) - Note Progress Note: Post Op 9 Post skin grafting both legs Dressings changed both legs ,application of VAC , Each dressing has been time consuming 3-4 hours due to issues with grafts being very close to Toes resulting in Air-Leaks Dressings changed today...Right leg graft pink /adherent .some discharge, no odor Hyun removed Left Leg dressing ; [place] removed, Xerform applied with BAcitracin ointment covered with 4x4 and Coban Patient being discharged to [facility] Graft take over 80% in Right leg Graft Left leg 50-60 % take...left leg has more drainage , no odor, Plan : 1. D/C VAC Therapy 2. Application of xeroform with Bacitracin ointment 3 Cover with 4x4 Dressing changes at [facility] as follows ONLY on Thursday, 1. Both Thigh dressings leave intact, do not pull unless excessive drainage, drainage, foul odor 2. Both Lower leg dressings : Remove coban, change only 4x4 with dry gauze, donot remove xerform unless excessive drainage, foul odor, erythema. Cover with fresh 4x4, kurlex followed by Coban 3 Encourage ambulation, avoid standing still, 4.Continue DVT precautions /meds FU Wound clinic visit Thursday
--- NOTE | 2019-01-07 17:22 | DS ---
Physical Exam: SUBJECTIVE: 58 y/o F w PMH HTN, dyslipidemia, CKD, DM and BL LE non healing ulcers whom came to the ED 2/2 intractable leg pain and admitted for surgical grafting. No concerns overnight. Pain controlled with PO. RIGHT PICC line in place. Afebrile. Passing stool and flatus. She denies NVFCD. OBJECTIVE: Vital Signs Period Temp Pulse Resp BP Sys/Dodson Pulse Ox Last 24 Hr 97.9 F-98.8 F 84-112 18-20 99-112/62-67 97-100 PHYSICAL EXAM GENERAL: AOx3, in no acute distress. Finnish speaking only. HEAD: NCAT EYES: NEDRA, EOMI, conjunctiva clear. EARS, NOSE, THROAT: Ears normal, nares patent, oropharynx clear without exudates. Moist mucous membranes. NECK: Normal range of motion, supple without lymphadenopathy, JVD, or masses. LUNGS: CTAB . No wheezes, and no crackles. No accessory muscle use. HEART: RRR s1 s2 no rubs, gallops, murmurs ABDOMEN: Soft, BS present in all 4 quadrants, non-distended, no JVD, MUSCULOSKELETAL: No bony deformities or tenderness. No CVA tenderness. UPPER EXTREMITIES: 2+ pulses, warm, well-perfused. No cyanosis. No clubbing. No peripheral edema. LOWER EXTREMITIES: BL circumferential bandages, on distal LE and proximal LE ( site of autograft) covered by bandages. [address] on LEFT LE. Pulses not appreciable, warm, no peripheral edema. NEUROLOGICAL: Cranial nerves II-XII intact. Normal speech. Gait not appreciated. PSYCHIATRIC: Cooperative. Good eye contact. Appropriate mood and affect. SKIN: LE skin as above. Otherwise, warm, dry, normal turgor, no rashes or lesions noted, normal capillary refill. LABS Laboratory Results - last 24 hr 01/06/19 01/07/19 01/07/19 21:44 06:14 06:50 WBC 7.6 RBC 3.12 L Hgb 8.0 L Hct 25.1 L MCV 80.5 MCH 25.5 L MCHC 31.7 L RDW 19.1 H Plt Count 347 MPV 8.1 Absolute Neuts (auto) 3.8 Neutrophils % 50.5 Lymphocytes % 34.2 D Monocytes % 11.8 H Eosinophils % 3.1 Basophils % 0.4 Nucleated RBC % 0 Sodium Potassium Chloride Carbon Dioxide Anion Gap BUN Creatinine Est GFR (CKD-EPI)AfAm Est GFR (CKD-EPI)NonAf POC Glucometer 134 132 Random Glucose Calcium Phosphorus Magnesium Total Bilirubin AST ALT Alkaline Phosphatase Total Protein Albumin Blood Type Antibody Screen 01/07/19 01/07/19 01/07/19 06:50 06:55 12:09 WBC RBC Hgb Hct MCV MCH MCHC RDW Plt Count MPV Absolute Neuts (auto) Neutrophils % Lymphocytes % Monocytes % Eosinophils % Basophils % Nucleated RBC % Sodium 134 L Potassium 4.0 Chloride 102 Carbon Dioxide 25 Anion Gap 8 BUN 30.1 H Creatinine 1.7 H Est GFR (CKD-EPI)AfAm 37.86 Est GFR (CKD-EPI)NonAf 32.67 POC Glucometer 157 Random Glucose 119 H Calcium 8.7 Phosphorus 3.3 Magnesium 2.1 Total Bilirubin 0.3 AST 16 ALT 19 Alkaline Phosphatase 61 Total Protein 5.6 L Albumin 1.9 L Blood Type O POSITIVE Antibody Screen Negative 01/07/19 16:25 WBC RBC Hgb Hct MCV MCH MCHC RDW Plt Count MPV Absolute Neuts (auto) Neutrophils % Lymphocytes % Monocytes % Eosinophils % Basophils % Nucleated RBC % Sodium Potassium Chloride Carbon Dioxide Anion Gap BUN Creatinine Est GFR (CKD-EPI)AfAm Est GFR (CKD-EPI)NonAf POC Glucometer 110 Random Glucose Calcium Phosphorus Magnesium Total Bilirubin AST ALT Alkaline Phosphatase Total Protein Albumin Blood Type Antibody Screen HOSPITAL COURSE: Date of Admission:12/29/18 58 y/o F w PMH HTN, HLD, CKD, DM and BL LE non-healing ulcers whom came to the ED 2/2 intractable leg pain. Pt underwent BL LE skin grafting and tolerated surgery well. Grafts taken from upper thigh and placed on distal lower extremity with worse severity on LEFT. Hyperbaric oxygen therapy and dilauded SUSTAINABILITY PROJECT MANAGER pump provided. Bone culture found (+)pseudomonas and osteomyelitis treated with zosyn. She was not febrile during stay but had elevated temperature and decreasing leukocytosis. Dressing changer performed exclusively by plastic surgery team, whom recommended WBAT. Pt experienced several days of constipation that did not initially respond to colace/senna/miralax but did respond with large BM to fleet enema. Chronic conditions, CKD and HTN managed with home regimen. DM treated with ISS and gabapenbtin for neuropathic pain. On penultimate day of hospital stay, pt had PICC line placed by IR. Placement ascertained for termite control servicer abx (plan: 4 weeks zosyn) and pt was dc to SNF. Date of Discharge: 01/07/19 Tacos Medrano MD Minutes to complete discharge: 40 Discharge Summary Reason For Visit: INTRACTABLE NEUROPATHIC PAIN OF FOOT Current Active Problems Bilateral leg ulcer (Acute) Intractable neuropathic pain of foot (Acute) Condition: Stable - Instructions Diet, Activity, Other Instructions: You were admitted to the hospital for infected lower extremities. You were evaluated by infectious disease physician, and plastic surgeon and underwent surgery. You were treated with IV antibiotics. Your studies revealed infection of the bone and you will need to continue IV antibiotics. You are being discharged to facility to continue your antibiotic course. Continue taking your home medications as directed. You will continue taking Zosyn 2.25grams IV every 6 hours for 5 more weeks; last day of treatment will be 02/10/2019. Follow up with your primary care physician within one- two days after hospital discharge Follow up with plastic surgeon Dr. Quintana within one -two days after hospital discharge. A referral has been provided. Follow up with wound care, infectious disease physician Dr Cveallos within one week of hospital discharge. A referral has been provided. Please follow with your Primary care doctor for screening for iron deficiency anemia. Continue Iron supplementation. Return to the nearest emergency department if you experience worsening symptoms , subjective fevers, chills, shortness of breath, chest pain, palpitations, abdominal pain, nausea, vomiting. Referrals: Judie Cevallos MD [Staff Physician] - Flo Quintana MD [Staff Physician] - Disposition: LONG-TERM FACILITY - Home Medications Comprehensive Discharge Medication List: Ambulatory Orders Atorvastatin Ca [Lipitor] 40 mg PO HS 12/30/18 Insulin Glargine,Hum.rec.anlog [Basaglar Kwikpen U-100] 10 units SQ HS 12/30/18 Clobetasol Propionate/Emoll [Clobetasol Emollient 0.05% Crm] 1 applic BID Ferrous Sulfate 325 mg PO BID 12/31/18 Gabapentin 100 mg PO DAILY 12/31/18 Lisinopril [Zestril] 2.5 mg PO DAILY 12/31/18 Oxycodone HCl/Acetaminophen [Percocet 5-325 mg Tablet] 1 combo PO Q6H PRN tablet MDD 20 01/07/19 Piperacillin/Tazob 2.25 gm [Zosyn -] 2.25 gm IVPB Q6H-IV vial 01/07/19 This patient is new to me today: No Emergency Visit: No Critical Care patient: No - Discharge Referral Referred to [facility] No ATTENDING PHYSICIAN STATEMENT I saw and evaluated the patient. I reviewed the resident's note and discussed the case with the resident. I agree with the resident's findings and plan as documented. SUBJECTIVE: OBJECTIVE: ASSESSMENT AND PLAN:
[2019-01-07 18:31] VITALS: BP 120/73; PULSE 105; TEMP 98.6
== END 2019-01-07 18:57 | DRG 313 ==
LOC: JER 16:47 → JERBED 21:21 → J4S 12-30 02:51 → J5S 01-05 21:25
PROVIDERS: ADMIT Internal Medicine
PROC: 0QBG0ZX Excision of Right Tibia, Open Approach, Diagnostic (ICD-10-PCS; principal; 2018-12-31)
PROC: 0KBT0ZZ Excision of Left Lower Leg Muscle, Open Approach (ICD-10-PCS; 2018-12-31)
PROC: 0QBH0ZZ Excision of Left Tibia, Open Approach (ICD-10-PCS; 2018-12-31)
PROC: 0HRKX74 Replacement of Right Lower Leg Skin with Autologous Tissue Substitute, Partial Thickness, External Approach (ICD-10-PCS; 2018-12-31)
PROC: 0HRLX74 Replacement of Left Lower Leg Skin with Autologous Tissue Substitute, Partial Thickness, External Approach (ICD-10-PCS; 2018-12-31)
PROC: 0YU Anatomical Regions, Lower Extremities, Supplement (ICD-10-PCS; 2018-12-31)
PROC: 0YUH07Z Supplement Right Lower Leg with Autologous Tissue Substitute, Open Approach (ICD-10-PCS; 2018-12-31)
PROC: 0HBLXZX Excision of Left Lower Leg Skin, External Approach, Diagnostic (ICD-10-PCS; 2018-12-31)
PROC: 0HBKXZX Excision of Right Lower Leg Skin, External Approach, Diagnostic (ICD-10-PCS; 2018-12-31)
PROC: 05HM33Z Insertion of Infusion Device into Right Internal Jugular Vein, Percutaneous Approach (ICD-10-PCS; 2019-01-06)
PROC: B513ZZA Fluoroscopy of Right Jugular Veins, Guidance (ICD-10-PCS; 2019-01-06)
DX: E11.69 Type 2 diabetes mellitus with other specified complication (principal); M86.161 Other acute osteomyelitis, right tibia and fibula; I12.9 Hypertensive chronic kidney disease with stage 1 through stage 4 chronic kidney disease, or unspecified chronic kidney disease; E78.5 Hyperlipidemia, unspecified; D64.9 Anemia, unspecified; L97.528 Non-pressure chronic ulcer of other part of left foot with other specified severity; L97.518 Non-pressure chronic ulcer of other part of right foot with other specified severity; K59.00 Constipation, unspecified; N18.3 Chronic kidney disease, stage 3 (moderate); E11.65 Type 2 diabetes mellitus with hyperglycemia; E11.22 Type 2 diabetes mellitus with diabetic chronic kidney disease; E87.5 Hyperkalemia; E11.621 Type 2 diabetes mellitus with foot ulcer; I83.008 Varicose veins of unspecified lower extremity with ulcer other part of lower leg; I87.2 Venous insufficiency (chronic) (peripheral); M62.9 Disorder of muscle, unspecified; M62.461 Contracture of muscle, right lower leg; M62.462 Contracture of muscle, left lower leg
CPT/HCPCS: 36415; 36558; 71045-TC-FY; 77001-TC-FY; 80048; 80053; 81003; 82607; 82746; 82962; 83540; 83550; 83735; 84100; 85025; 85610; 85651; 85730; 86140; 86850; 86900; 86901; 87040; 87070; 87075; 87086; 87186; 87205; 88304-TC; 88305-TC; 88311-TC; 90670; 93005; 93010; 94760; 97116-GP; 97162-GP; 99284-25; C1751; J0131; J1644; J7030

== ENCOUNTER → 2019-02-10 | Day surgery (SDC) | payer OTHER | END | disposition home or self-care (01) | LOC: JRADIR 11:36 | PROVIDERS: ATTEND Plastic Surgery | PROC: 0JPT0XZ Removal of Tunneled Vascular Access Device from Trunk Subcutaneous Tissue and Fascia, Open Approach (ICD-10-PCS; principal; 2019-02-10) | DX: Z45.2 Encounter for adjustment and management of vascular access device (principal) | CPT/HCPCS: 36589 ==

== ENCOUNTER 2020-12-12 04:24 | Day surgery (SDC) | payer OTHER ==
[2020-12-10 10:05] VITALS: BMI 29.2
[2020-12-12] MEDS ORDERED: PROPOFOL 20 ML ONE ×2 (14:45)
[2020-12-12] MEDS ORDERED: DEXAMETHASONE SOD PHOSPHATE 4 MG/1 ML VIAL ONE (14:45)
[2020-12-12] MEDS ORDERED: MIDAZOLAM HCL 2 MG/2 ML SINGLE DOSE VIAL ONE (14:45)
[2020-12-12] MEDS ORDERED: ceFAZolin SODIUM 1 GM VIAL IVPB ONE (15:13)
[2020-12-12] MEDS ORDERED: LIDOCAINE 1%/EPI 1:100000 (20 ML MULTI DOSE VIAL) ONE (15:16)
[2020-12-12] MEDS ORDERED: BUPIVACAINE HCL/PF 0.25% (2.5MG/ML) 10 ML VIAL ONE (15:17)
[2020-12-12] MEDS ORDERED: ONDANSETRON 4 MG/2 ML VIAL IVPUSH PRN (15:31)
[2020-12-12] MEDS ORDERED: PROMETHAZINE HCL 25 MG/1 ML VIAL IVPUSH PRN (15:31)
[2020-12-12] MEDS ORDERED: BACITRACIN 50,000 UNITS VIAL TP ONE (15:36)
[2020-12-12] MEDS ORDERED: BACITRACIN 15 GM TUBE TOPICAL OINTMENT ONE (15:42)
[2020-12-12] MEDS ORDERED: LACTATED RINGERS SOLUTION 1,000 ML IV SCH (15:45)
[2020-12-12] MEDS ORDERED: BACITRACIN 15 GM TUBE TOPICAL OINTMENT TP ONE (15:49)
[2020-12-12] MEDS ORDERED: BENZOIN/ALOE VERA/STORAX/TOLU 58 ML BOTTLE TP ONE (15:50)
[2020-12-12 18:10] VITALS: BP 137/78; PULSE 66; TEMP 97.7
== END 2020-12-12 18:10 | disposition home or self-care (01) ==
LOC: JASU-SURG 04:24
PROVIDERS: ATTEND Plastic Surgery
PROC: 0HBJXZZ Excision of Left Upper Leg Skin, External Approach (ICD-10-PCS; 2020-12-12)
PROC: 0HBNXZZ Excision of Left Foot Skin, External Approach (ICD-10-PCS; principal; 2020-12-12 14:00)
PROC: 0HRNX73 Replacement of Left Foot Skin with Autologous Tissue Substitute, Full Thickness, External Approach (ICD-10-PCS; 2020-12-12 14:00)
DX: T81.89XA Other complications of procedures, not elsewhere classified, initial encounter (principal); I87.2 Venous insufficiency (chronic) (peripheral)
CPT/HCPCS: 94760